=== PATIENT | male | born 1950 | race Caucasian/White ===

== ENCOUNTER 2016-09-22 23:12 | Inpatient (IN) | payer MEDICARE, BC ==
[~2016-09-22] VITALS: Ht 182.9 cm; Wt 88.1 kg
[~2016-09-22 23:12] MED LIST: /WARF25TA PO; ABIL5TAB5 PO; ACET50TA PO; AMOX500C PO; ARIP1TAB6 PO; EFFE150C PO; EFFE37.527 PO; EFFE75CA75 PO; FINA5TAB2 PO; FLOM5CAP PO; GEOD20CA14 PO; INVE117I IM; LORA1TAB12 PO; LYRI100C10 PO; LYRI75CA PO; NICO14DI3 TD; NICO21PAT TD; PERC2.5T PO; PERC7.5T12 PO; PREG1POW PO; PROS5TAB PO; PROZ20CA11 PO; RISP2TAB30 PO; SAPH1SUB9 SL; TRAZ50TA4 PO; VENL75CA47 PO
[2016-09-22] MEDS ORDERED: FLUP10TA PO (23:31)
[2016-09-22] MEDS ORDERED: HYDR1CAP25 PO (23:31)
[2016-09-22] MEDS ORDERED: TRAZ50TA4 PO (23:31)
[2016-09-22] MEDS ORDERED: BENZ2TA PO (23:31)
[2016-09-23 01:10] VITALS: BP 142/95
[2016-09-23] MEDS ORDERED: MAALOX 30 ML SUSP *UDC PO PRN (01:30)
[2016-09-23] MEDS ORDERED: ACETAMINOPHEN TAB 650MG DOSE (2X325MG) PO PRN (01:30)
[2016-09-23] MEDS ORDERED: MOM 30ML SUSPENSION UDC PO PRN (01:30)
[2016-09-23] MEDS: NICOTINE 14 MG/24 HR TRANSDERMAL TD SCH (09:11)
[2016-09-23] MEDS: BENZTROPINE 2 MG TAB PO SCH (09:11)
[2016-09-23] MEDS: VENLAFAXINE **XR** 75MG CAPSULE PO SCH (09:11)
[2016-09-23] MEDS: hydrOXYzine 25 MG TAB PO SCH ×2 (09:11→20:21)
[2016-09-23] MEDS: FLUoxetine 10 MG CAP PO SCH (09:11)
[2016-09-23] MEDS ORDERED: FLUP25VL IM (11:09)
--- NOTE | 2016-09-23 11:48 | HPEPDOC ---
Medical History and Physical Date of Admission September 23, 2016 at 00:20 History and Physical PCP: Dr. Li ATTENDING: Dr. Negro Carreno HPI: 66yoM admitted to [facility] for Schizoaffective disorder, being medically examined today. No acute medical complaints today. Denies any fevers, chills, weakness, fatigue, SMITH, CP, cough, palpitations, abdominal pain, N/V/D or changes in bowel or bladder habits. PMHx: Depression/psychosis Generalized anxiety disorder Insomnia Hx of nephrolithiasis BPH Chronic nerve pain decreased hearing left ear hx of Orthostatic hypotension PSHX: Left TKA Right rotator cuff repair Varicose veins BL lower extremities SOCHX: Resides in: [place], [place] Marital Status: Single, lives alone Kids: 0 Employment: Retired from [employer] Tobacco use: 1ppd x ~50yrs ETOH: Denies, quit age 31yo Illicit Drugs: Denies IV Drug Use: Denies Tattoos done unprofessionally: Denies FAMHX: Mother: age 70s secondary to heart problems Father: age 49 secondary to alcoholism Siblings: 1 sister alive, well. 1 sister secondary to unknown cause late 50s Unexpected deaths due to medical reasons: As above, otherwise unremarkable ROS: As noted in HPI, otherwise 11pt ROS of systems reviewed and remarkably unremarkable. PE: GEN: 66yoM, appears stated age. Well-nourished, well developed. No acute distress. Alert and oriented x 3. Pleasant, interactive. HEENT: Normocephalic, atraumatic. Pupils are equal, round, and reactive to light. Extraocular movements are intact. No nystagmus appreciated. Sclera are nonicteric. Conjunctiva without injection. Nose midline. No facial asymmetry. Moist mucous membranes. Partial dentures in place. Pharynx pink and moist, no cobblestoning. Neck supple, trachea midline. No lymphadenopathy or thyromegaly appreciated. CHEST: Regular rate and rhythm, +S1, +S2 LUNGS: Clear to auscultation bilaterally. No wheezes, rales, or rhonchi. Breathing appears symmetric and easy. Patient is speaking in full sentences. No accessory muscle use. ABD: Round, soft, non-tender, non-distended. +Bowel sounds throughout. No rebound or guarding. No costovertebral angle tenderness. EXT: Pulses 2+ bilaterally dorsalis pedis and radial. No lower extremity edema appreciated. SKIN: [place], dry, warm. Capillary refill <2sec. No rashes. NEURO: Alert and oriented x 3. Cranial nerves III-XII are intact. No focal deficits appreciated. Labs from [facility] WBC 6.9 Hgb15.4 Hct 45.8 Plt 237 BUN 28 SCr 0.70 Gluc 116 AST29 ALT 40 TSH 0.95 EKG [facility] NSR. A&P: 65yoM admitted to [facility] for Schizoaffective disorder 1. Psych. Plan per Psychiatry. EKG on file. 2. Nicotine dependence. Patch available. 3. Hx of nephrolithiasis/ Hx of BPH. Pt is not on any medications, Pt with no symptoms at this time. Stable. 4. Follow up with Dr. Li in [place]. 5. Hx of Orthostasis. Monitor orthostatic VS. 6. Junior VILLARREAL present throughout exam. Vital Signs Vital Signs Date Time Temp Pulse Resp B/P (MAP) Pulse Ox O2 Delivery O2 Flow Rate FiO2 09/23/16 01:10 98.7 78 20 142/95 (111) 94 Room Air Home Medications Scheduled Asenapine Maleate (Saphris) 2.5 Mg Sub, 5 MG SL QHS for PSYCHOSIS Benztropine Mesylate (Benztropine Mesylate) 2 Mg Tab, 2 MG PO DAILY Fluoxetine HCl (Prozac) 20 Mg Cap, 30 MG PO DAILY for DEPRESSION Fluphenazine Decanoate (Fluphenazine Decanoate) 25 Mg/Ml Soln, 1 ML IM Q2WK for psychosis Fluphenazine HCl (Fluphenazine HCl) 10 Mg Tab, 10 MG PO DAILY Hydroxyzine Pamoate (Hydroxyzine Pamoate) 25 Mg Cap, 25 MG PO BID Trazodone HCl (Trazodone HCl) 50 Mg Tab, 50 MG PO DAILY Venlafaxine Hydrochloride (Effexor Xr) 150 Mg Cap, 150 MG PO DAILY for DEPRESSION Allergies Coded Allergies: Ibuprofen (Verified Allergy, Mild, ITCHING, 09/22/16) Nora Fountain September 23, 2016 11:48
[2016-09-23 18:00] VITALS: BP 155/84
[2016-09-23 18:50] VITALS: BP 150/83
[2016-09-23 18:51] VITALS: BP_SYST 140; BP_SYST 146; BP_DIAS 89; BP_DIAS 93
[2016-09-23] MEDS: traZODone 50 MG TAB PO SCH ×2 (20:21)
[2016-09-23 20:22] VITALS: BP 145/91
[2016-09-23] MEDS ORDERED: ASENAPINE 5 MG SUBLINGUAL TAB (SAPHRIS) SL SCH (21:00)
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
[2016-09-24 07:01] VITALS: BP 140/89
[2016-09-24] MEDS: BENZTROPINE 2 MG TAB PO SCH (09:07)
[2016-09-24] MEDS: FLUoxetine 10 MG CAP PO SCH (09:07)
[2016-09-24] MEDS: VENLAFAXINE **XR** 75MG CAPSULE PO SCH (09:07)
[2016-09-24] MEDS: hydrOXYzine 25 MG TAB PO SCH ×2 (09:07→20:35)
[2016-09-24] MEDS: NICOTINE 14 MG/24 HR TRANSDERMAL TD SCH (09:08)
--- NOTE | 2016-09-24 10:54 | MHIPNPDOC ---
[facility] Progress Note Progress Note DATE OF SERVICE: 09/24/16 HISTORY: Patient is a 66-year-old male who was discharged from [facility] 3 months ago and was transferred from [facility] to [facility] complaining of increased auditory hallucinations over the course of the last several weeks, reported at intake that audiovisual hallucinations are self derogatory and were commanding him to kill himself. Patient noted he has been struggling with paranoia and auditory hallucinations, and severe depression since February 2015, had been living in [facility]. Patient has been trialed on multiple psychotropics, including several antipsychotics, has met with attending who indicates patient is a candidate for Clozaril trial with which patient is in agreement. Patient reports 6/10 anxiety , 7/10 depression, denies current suicidal or homicidal ideation, and denies urge to engage in self-injurious behavior. Patient reports experiencing auditory hallucination with command to kill himself "earlier today, they mostly just say I'm not going to make it, ramble on, and they confuse me." Patient denies experiencing symptoms since this morning and is able to agree to alert staff if symptoms return and worsen/become unmanageable. Patient reports experiencing poor sleep which she states improves when he takes trazodone, reports decreased concentration and focus, describes energy level as "okay," indicates appetite is stable. Patient has been encouraged to participate in unit programming, presents with no signs of acute distress at time of interaction. VITAL SIGNS: See below. NEW TEST RESULTS: CBC completed 09/24/16 with elevated mono % and eos %. 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 Left TKA, right rotator cuff repair, varicose veins BL lower extremities 01/25/[address] completed - negative noncontrast head CT 03/07/15 brain MRI with the following findings: Chronic small vessel white matter ischemic change with scattered punctuated and confluent periventricular, subcortical and deep centrum semiovale foci bilaterally on T2 and FLAIR images. No ventriculomegaly, mass, hemorrhage or acute infarct. Brainstem, cerebellum and posterior foci intact and the 7/8 cranial nerve complexes and mastoids are clear. The ethmoids and frontal sinuses with minor mucosal thickening. Otherwise negative. Labs completed by [facility] prior to transfer indicated elevated chloride, BUN, glucose and bacteria and urine. PA is aware of bacteria and urine and is treating. UDS negative on admission 10/29/15 EKG sinus rhythm possible right ventricular conduction delay increased rate 07/08/1509/2016 EKG from [facility] sinus rhythm CURRENT MEDICATIONS: See below. MENTAL STATUS EXAMINATION: Patient is a 66-year old male, who is cooperative and engageable but withdrawn and isolative to room, makes limited eye contact, is disheveled, dressed in hospital clothing, ambulates steady gait, appears stated age Speech: Is of normal volume, coherent, delayed, impoverished Language skills: Require further evaluation Thought processes including: Disorganized, not goal-directed Thought content: Perseverative, tangential. Abstract reasoning and computation: Limited Description of associations: Loose. Description of abnormal or psychotic thoughts: Denies current suicidal and homicidal ideation, however, indicates recently experienced auditory hallucinations with command to kill self, denies visual hallucinations. Patient appears internally preoccupied; appears to be responding to internal stimuli. Judgment: Poor Insight: Poor Orientation: A and O 3 Recent and remote memory: Appears intact Attention span and concentration: Requires further evaluation Language: Limited at present, requires further evaluation Fund of knowledge: Requires further evaluation Mood: "I'm ok right now" Affect: Blunted. DIAGNOSES: Unspecified psychotic disorder, rule out schizoaffective disorder, rule out schizophrenia, rule out major depressive disorder with psychotic features. Alcohol use disorder, severe, in sustained remission ASSESSMENT: Patient is 66-year-old male who was recently discharged from [facility], remains isolative to room, however, is engageable, cooperative, presents with no behavior management challenges. Patient denies suicidal and homicidal ideation and verbalizes awareness of how to access supportive services on the unit if needed, agrees to alert staff if symptoms of auditory hallucinations with command to kill self return. Patient indicates previous medication regimen was ineffective and is requesting Clozaril trial, attending and food writer have reviewed potential risks, benefits, side effects, and need for ongoing lab work with patient verbalizes understanding and agreement. Will monitor patient's response to medications and will monitor for medication side effects. Will also evaluate patient safety, resolution of suicidal ideation, and discharge readiness. Patient states when prepared for discharge she plans to return to [facility] and resume outpatient psychiatric services through [facility]. Per career coordinator, patient lives in [facility] apartment, has supportive sister, and is connected with [facility], and [facility]. MANAGEMENT PLAN: Initiate Clozaril 25 mg po q hs. Reduce Prolixin to 5 mg po q am then stop. Reduce Effexor XR to 75 mg po q am with plan to continue taper and discontinue. Discontinue Saphris. Change trazodone to 50 mg po hs PRN insomnia Continue Prozac 30 mg po q am, hydroxyzine 25 mg po BID, and Cogentin 2 mg po q am. Repeat CBC with differential ordered for 09/27/16 Fall risk precautions Orthostatics ordered QID Maintain safety precautions Patient to attend groups and participate in unit programming to develop coping strategies Engage patient in discharge planning process and arrange meeting with support system to ensure safe discharge planning when appropriate Patient to follow up with PCM within 5-7 days of discharge TIME SPENT: 35 minutes. Vital Signs Vital Signs Date Time Temp Pulse Resp B/P (MAP) Pulse Ox O2 Delivery O2 Flow Rate FiO2 09/24/16 07:01 99.0 62 18 140/89 (106) 09/23/16 01:10 94 Room Air Current Medications Current Medications Acetaminophen (Tylenol Tab) 650 mg Q6HP PRN PO HEADACHE or DISCOMFORT; Start at 01:30; Stop 10/23/16 at 01:29 Al Hydrox/Mg Hydrox/Simethicone (Mylanta) 30 ml Q4HP PRN PO HEARTBURN/ INDIGESTION; Start 09/23/16 at 01:30; Stop 10/23/16 at 01:29 Asenapine (Saphris) 5 mg QHS SL Last administered on 09/23/16 20:21; Start 09/23 at 21:00; Stop 10/23/16 at 20:59 Benztropine Mesylate (Cogentin) 2 mg DAILY PO Last administered on 09/24/16 09: 07; Start 09/23/16 at 09:00; Stop 10/23/16 at 08:59 Fluoxetine HCl (PROzac) 30 mg DAILY PO Last administered on 09/24/16 09:07; Start 09/23/16 at 09:00; Stop 10/23/16 at 08:59 Fluphenazine HCl (Prolixin) 10 mg QAM PO Last administered on 09/24/16 09:08; Start 09/23/16 at 09:00; Stop 10/23/16 at 08:59 Home Med (Med Rec Complete!) ASDIRECTED XX ; Start 09/23/16 at 01:45; Stop at 01:48; Status DC Hydroxyzine HCl (Atarax) 25 mg BID PO Last administered on 09/24/16 09:07; Start 09/23/16 at 09:00; Stop 10/23/16 at 08:59 Magnesium Hydroxide (Milk Of Magnesia) 30 ml DAILYPRN PRN PO CONSTIPATION; Start 09/23/16 at 01:30; Stop 10/23/16 at 01:29 Nicotine (Nicoderm Cq 14mg) 1 patch DAILY TD Last administered on 09/24/16 09: 08; Start 09/23/16 at 09:00; Stop 10/23/16 at 08:59 Trazodone HCl (Desyrel) 50 mg QHS PO Last administered on 09/23/16 20:21; Start 09/23/16 at 00:00; Stop 10/23/16 at 00:00 Venlafaxine HCl (Effexor Xr) 150 mg DAILY PO Last administered on 09/24/16 09:07; Start 09/23/16 at 09:00; Stop 10/23/16 at 08:59 Allergies Coded Allergies: Ibuprofen (Verified Allergy, Mild, ITCHING, 09/22/16) Amira Hernandez September 24, 2016 10:54
[2016-09-24 11:50] VITALS: BP_SYST 125; BP_SYST 133; BP_SYST 135; BP_DIAS 84; BP_DIAS 87
--- NOTE | 2016-09-24 13:42 | IPNPDOC ---
Subjective Date Seen The patient was seen on 09/24/16. Subjective Chief Complaint/HPI The patient is a 66-year-old male admitted with a reason for visit of Schizoaffective D/O. Events since last encounter Requested to evaluate Pt in regards to UC result from [facility]. No new issues. ENT: Denies: Head Aches, Ear Pain, Dysphagia Pulmonary: Denies: Dyspnea, Cough Cardiovascular: Denies: Chest Pain, Palpitations, Orthopnea, Paroxysmal Noc. Dyspnea, Lt Headedness Gastrointestinal: Denies: Nausea, Vomiting, Abdominal Pain, Diarrhea, Constipation Objective Physical Examination General Exam: Positive: Alert Eye Exam: Positive: PERRLA Chest Exam: Positive: Clear to auscultation Heart Exam: Positive: Rate Normal, Regular Rhythm, Normal S1, Normal S2, Negative: Murmurs, Rubs Skin Exam: Positive: Nl turgor and temperature Assessment /Plan Problems (1) UTI (urinary tract infection) Status: Acute Problem Text: * UC result from [facility] noted to E faecalis >100,000. * Sensitivities reviewed. Will add Nitrofurantoin 100mg po BID. Scr noted to be WNL as per labs from [facility]. * Will recheck UA/UC. * CBC/BMP in AM. * Monitor. (2) Orthostatic hypotension Status: Chronic Problem Text: * Pt with h/o orthostatic hypotension. * Orthostatic VS requested. * Caution with addition of new medications. Plan/VTE VTE Prophylaxis Ordered?: No (ambulatory) VS, I&O, 24H, Fishbone Vital Signs/I&O Vital Signs Date Time Temp Pulse Resp B/P (MAP) Pulse Ox O2 Delivery O2 Flow Rate FiO2 09/24/16 11:50 85 16 125/84 (98) 09/24/16 11:50 98.2 09/23/16 01:10 94 Room Air Nora Fountain September 24, 2016 13:42
[2016-09-24] MEDS: NITROFURANTOIN (MACROBID) 100 MG CAP PO SCH ×2 (14:17→20:35)
[2016-09-24 17:41] LABS: BASO # 0.1 K/mm3 (0.0-0.2); BASO % 0.9 % (0.0-1.0); EOS # 0.5 K/mm3 (0.0-0.50); EOS % 7.3 % (0.0-3.0); LARGE UNSTAINED CELL # 0.3 K/mm3 (0.0-0.4); LARGE UNSTAINED CELL % 3.7 % (0.0-4.0); LYMPH # 2.6 K/mm3 (1.5-4.5); LYMPH % 38.7 % (24.0-44.0); MEAN CORPUSCULAR HEMOGLOBIN 31.7 pg (27.0-33.0); MEAN CORPUSCULAR HGB CONC 33.3 g/dl (32.0-36.5); MEAN CORPUSCULAR VOLUME 95.3 fl (80.0-96.0); MONO # 0.6 K/mm3 (0.0-0.8); MONO % 8.6 % (0.0-5.0); NEUTROPHILS # 2.7 K/mm3 (1.8-7.7); NEUTROPHILS % 40.8 % (36.0-66.0); PLATELET COUNT, AUTOMATED 247 k/mm3 (150-450); RED CELL DISTRIBUTION WIDTH 12.6 % (11.5-14.5); WHITE BLOOD COUNT 6.7 K/mm3 (4.0-10.0)
[2016-09-24 18:21] VITALS: BP 142/86
[2016-09-24 18:22] VITALS: BP_SYST 114; BP_SYST 139; BP_DIAS 71; BP_DIAS 80
[2016-09-24] MEDS: traZODone 50 MG TAB PO PRN (20:35)
[2016-09-24] MEDS: cloZAPine 25 MG TAB (S0136) PO SCH (20:35)
[2016-09-25 06:27] VITALS: BP 147/81
[2016-09-25 06:28] VITALS: BP_SYST 113; BP_SYST 126; BP_DIAS 77
[2016-09-25 06:45] VITALS: BP 126/77
[2016-09-25 06:47] VITALS: BP 147/81
[2016-09-25 06:48] LABS: BASO % 0.5 % (0.0-1.0); EOS # 0.4 K/mm3 (0.0-0.50); EOS % 7.1 % (0.0-3.0); LARGE UNSTAINED CELL # 0.2 K/mm3 (0.0-0.4); LARGE UNSTAINED CELL % 3.1 % (0.0-4.0); LYMPH % 30.1 % (24.0-44.0); MEAN CORPUSCULAR HEMOGLOBIN 32.1 pg (27.0-33.0); MEAN CORPUSCULAR HGB CONC 34.4 g/dl (32.0-36.5); MEAN CORPUSCULAR VOLUME 93.4 fl (80.0-96.0); MONO # 0.5 K/mm3 (0.0-0.8); MONO % 7.3 % (0.0-5.0); NEUTROPHILS # 3.2 K/mm3 (1.8-7.7); PLATELET COUNT, AUTOMATED 221 k/mm3 (150-450); RED CELL DISTRIBUTION WIDTH 12.8 % (11.5-14.5); WHITE BLOOD COUNT 6.1 K/mm3 (4.0-10.0)
[2016-09-25 07:02] LABS: ALBUMIN 3.6 GM/DL (3.2-5.2); ALBUMIN/GLOBULIN RATIO 1.16 (1.00-1.93); ALKALINE PHOSPHATASE 105 U/L (45-117); ALT/SGPT 43 U/L (12-78); ANION GAP 7 MEQ/L (8-16); AST/SGOT 20 U/L (15-37); BILIRUBIN,TOTAL 1.4 MG/DL (0.2-1.0); BLOOD UREA NITROGEN 18 MG/DL (7-18); CALCIUM LEVEL 8.6 MG/DL (8.8-10.2); CARBON DIOXIDE LEVEL 25 MEQ/L (21-32); CHLORIDE LEVEL 109 MEQ/L (98-107); CREATININE FOR GFR 0.73 MG/DL (0.70-1.30); GLOMERULAR FILTRATION RATE > 60.0 (>49); GLUCOSE, FASTING 94 MG/DL (80-110); POTASSIUM SERUM 4.1 MEQ/L (3.5-5.1); SODIUM LEVEL 141 MEQ/L (136-145); TOTAL PROTEIN 6.7 GM/DL (6.4-8.2)
[2016-09-25] MEDS: hydrOXYzine 25 MG TAB PO SCH ×2 (08:31→20:38)
[2016-09-25] MEDS: BENZTROPINE 2 MG TAB PO SCH (08:31)
[2016-09-25] MEDS: FLUoxetine 10 MG CAP PO SCH (08:31)
[2016-09-25] MEDS: NICOTINE 14 MG/24 HR TRANSDERMAL TD SCH (08:31)
[2016-09-25] MEDS: NITROFURANTOIN (MACROBID) 100 MG CAP PO SCH ×2 (08:32→20:38)
[2016-09-25] MEDS ORDERED: VENLAFAXINE **XR** 75MG CAPSULE PO SCH (09:00)
[2016-09-25 12:00] VITALS: BP_SYST 107; BP_SYST 134; BP_SYST 146; BP_DIAS 67; BP_DIAS 69; BP_DIAS 85
--- NOTE | 2016-09-25 15:09 | MHIPNPDOC ---
[facility] Progress Note Progress Note DATE OF SERVICE: 09/25/16 HISTORY: Patient is a 66-year-old male who was [place] [facility] [place] and was transferred from [facility] to [facility] complaining of increased auditory hallucinations over the course of the last several weeks, reported at intake that audiovisual hallucinations are self derogatory and were commanding him to kill himself. Patient noted he has been struggling with paranoia and auditory hallucinations, and severe depression since February 2015, had been living in [facility] housing. Patient took initial dose of Clozaril last night, reports experiencing mild intermittent symptoms of fatigue, states symptoms are manageable, denies all other medication side effects. Patient notes, "I feel better, the voices are less." Patient indicates he last experienced auditory hallucinations this morning, AH involved command to harm self with no method/plan/intent experienced , indicates AH "mimic" patient at times. Patient states symptoms are more manageable and are of reduced frequency and intensity, and patient continues to agree to alert staff if symptoms return and worsen/become unmanageable. Patient further describes reduction in symptoms paranoia, rates current anxiety level is 4/10, depression/10, denies current suicidal or homicidal ideation, denies current audiovisual hallucinations, denies urge to engage in self-injurious behavior. Patient reports notable improvement to sleep last night, denies nightmares symptoms, further denies challenges with latency or maintenance. Patient continues to struggle with concentration and focus, reports no changes to energy level, states appetite remains stable. Patient was again encouraged to participate in unit activities. Patient denies symptoms of physical pain and presents with no signs of acute distress at time of interaction. cut in worker has requested medication treatment history from [facility]. VITAL SIGNS: See below. NEW TEST RESULTS: CBC repeated 09/25/16, mono % and eos % remain elevated. 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 Left TKA, right rotator cuff repair, varicose veins BL lower extremities 01/25/[address] completed - negative noncontrast head CT 03/07/15 brain MRI with the following findings: Chronic small vessel white matter ischemic change with scattered punctuated and confluent periventricular, subcortical and deep centrum semiovale foci bilaterally on T2 and FLAIR images. No ventriculomegaly, mass, hemorrhage or acute infarct. Brainstem, cerebellum and posterior foci intact and the 7/8 cranial nerve complexes and mastoids are clear. The ethmoids and frontal sinuses with minor mucosal thickening. Otherwise negative. Labs completed by [facility] prior to transfer indicated elevated chloride, BUN, glucose and bacteria and urine. PA is aware of bacteria in urine and is treating. UDS negative on admission 10/29/15 EKG sinus rhythm possible right ventricular conduction delay increased rate 07/08/1509/2016 EKG from [facility] sinus rhythm CURRENT MEDICATIONS: See below. MENTAL STATUS EXAMINATION: Patient is a 66-year old male, who is cooperative and more engageable today, remains withdrawn and isolative to room, makes improved eye contact, appears less disheveled, dressed in hospital clothing, ambulates steady gait, appears stated age Speech: Is of normal volume, coherent, delayed, less impoverished, more verbally engageable today Language skills: Within normal limits Thought processes including: Less disorganized, more goal-directed Thought content: Less perseverative, less tangential, generally rational and logical Abstract reasoning and computation: Limited Description of associations: Remain loose but less so today Description of abnormal or psychotic thoughts: Denies current suicidal and homicidal ideation, however, indicates recently experienced auditory hallucinations with command to harm self, denies visual hallucinations. Patient does not appear internally preoccupied at time of interaction. Judgment: Poor Insight: Poor Orientation: A and O 3 Recent and remote memory: Appears intact Attention span and concentration: Limited but shows signs of improvement Language: Limited but shows signs of improvement Fund of knowledge: Requires further evaluation Mood: "I'm a little better today and think " patient remains depressed, appears less anxious today, no mood lability noted Affect: Remains blunted but is more animated today, generally congruent with mood DIAGNOSES: Unspecified psychotic disorder, rule out schizoaffective disorder, rule out schizophrenia, rule out major depressive disorder with psychotic features. Alcohol use disorder, severe, in sustained remission ASSESSMENT: Patient is 66-year-old male who was recently discharged from [facility] remains isolative to room, however, is more engageable today, is pleasant and cooperative, presents with no behavior management challenges. Patient denies suicidal and homicidal ideation and verbalizes awareness of how to access supportive services on the unit if needed, agrees to alert staff if symptoms of command auditory hallucinations return/become unmanageable. Patient reiterates today previous medication regimen was ineffective, reports reduction in symptoms post-initiation of Clozaril trial. Patient has been informed by attending and ghost writer of potential risks, benefits, side effects, and need for ongoing lab work; patient continues to verbalize understanding and agreement. Will continue to monitor for side effects and patient's response to medications and nursing has also been asked to monitor for clozaril medication side effects. Will also continue to evaluate patient safety, resolution of suicidal ideation, and discharge readiness. Patient states when prepared for discharge he plans to return to [facility] in [place] and resume outpatient psychiatric services through [facility]. Per behavioral health care coordinator, patient may return to [facility] apartment, has supportive sister, and is connected with [facility], and [facility]. MANAGEMENT PLAN: Continue Clozaril 25 mg po q hs with plans to titrate as tolerated by patient. Discontinue Prolixin. Reduce Effexor XR to 37.5 mg po q am then discontinue. Continue trazodone 50 mg po hs PRN insomnia, continue Prozac 30 mg po q am, hydroxyzine 25 mg po BID, and Cogentin 2 mg po q am. Repeat CBC with differential ordered for 09/27/16 Fall risk precautions Orthostatics ordered QID Maintain safety precautions Patient to attend groups and participate in unit programming to develop coping strategies Engage patient in discharge planning process and arrange meeting with support system to ensure safe discharge planning when appropriate Patient to follow up with PCM within 5-7 days of discharge TIME SPENT: 35 minutes Vital Signs Vital Signs Date Time Temp Pulse Resp B/P (MAP) Pulse Ox O2 Delivery O2 Flow Rate FiO2 09/25/16 12:00 98 107/67 (80) 09/25/16 06:47 97.1 18 09/25/16 06:27 Room Air 09/23/16 01:10 94 Laboratory Data 24H Labs Laboratory Tests 2 09/24/16 17:22: White Blood Count 6.7, Red Blood Count 4.77, Hemoglobin 15.1, Hematocrit 45.5, Mean Corpuscular Volume 95.3, Mean Corpuscular Hemoglobin 31.7, Mean Corpuscular Hemoglobin Concent 33.3, Red Cell Distribution Width 12.6, Platelet Count 247, Neutrophils (%) (Auto) 40.8, Lymphocytes (%) (Auto) 38.7, Monocytes ( %) (Auto) 8.6H, Eosinophils (%) (Auto) 7.3H, Basophils (%) (Auto) 0.9, Neutrophils # (Auto) 2.7, Lymphocytes # (Auto) 2.6, Monocytes # (Auto) 0.6, Eosinophils # (Auto) 0.5, Basophils # (Auto) 0.1, Large Unclassified Cells % 3.7 , Large Unclassified Cells # 0.3 09/25/16 06:28: White Blood Count 6.1, Red Blood Count 4.54, Hemoglobin 14.6, Hematocrit 42.4, Mean Corpuscular Volume 93.4, Mean Corpuscular Hemoglobin 32.1, Mean Corpuscular Hemoglobin Concent 34.4, Red Cell Distribution Width 12.8, Platelet Count 221, Neutrophils (%) (Auto) 52.0, Lymphocytes (%) (Auto) 30.1, Monocytes ( %) (Auto) 7.3H, Eosinophils (%) (Auto) 7.1H, Basophils (%) (Auto) 0.5, Neutrophils # (Auto) 3.2, Lymphocytes # (Auto) 2.0, Monocytes # (Auto) 0.5, Eosinophils # (Auto) 0.4, Basophils # (Auto) 0.0, Large Unclassified Cells % 3.1 , Large Unclassified Cells # 0.2, Anion Gap 7L, Glomerular Filtration Rate > 60.0, Blood Urea Nitrogen 18, Creatinine 0.73, Sodium Level 141, Potassium Level 4.1, Chloride Level 109H, Carbon Dioxide Level 25, Calcium Level 8.6L, Aspartate Amino Transf (AST/SGOT) 20, Alanine Aminotransferase (ALT/SGPT) 43, Alkaline Phosphatase 105, Total Bilirubin 1.4H, Total Protein 6.7, Albumin 3.6, Albumin/Globulin Ratio 1.16 CBC/BMP Laboratory Tests 09/24/16 17:22 Red Blood Count 4.77, Mean Corpuscular Volume 95.3, Mean Corpuscular Hemoglobin 31.7, Mean Corpuscular Hemoglobin Concent 33.3, Red Cell Distribution Width 12.6 , Neutrophils (%) (Auto) 40.8, Lymphocytes (%) (Auto) 38.7, Monocytes (%) (Auto ) 8.6 H, Eosinophils (%) (Auto) 7.3 H, Basophils (%) (Auto) 0.9, Neutrophils # ( Auto) 2.7, Lymphocytes # (Auto) 2.6, Monocytes # (Auto) 0.6, Eosinophils # (Auto ) 0.5, Basophils # (Auto) 0.1 09/25/16 06:28 Red Blood Count 4.54, Mean Corpuscular Volume 93.4, Mean Corpuscular Hemoglobin 32.1, Mean Corpuscular Hemoglobin Concent 34.4, Red Cell Distribution Width 12.8 , Neutrophils (%) (Auto) 52.0, Lymphocytes (%) (Auto) 30.1, Monocytes (%) (Auto ) 7.3 H, Eosinophils (%) (Auto) 7.1 H, Basophils (%) (Auto) 0.5, Neutrophils # ( Auto) 3.2, Lymphocytes # (Auto) 2.0, Monocytes # (Auto) 0.5, Eosinophils # (Auto ) 0.4, Basophils # (Auto) 0.0, Calcium Level 8.6 L, Aspartate Amino Transf (AST/ SGOT) 20, Alanine Aminotransferase (ALT/SGPT) 43, Alkaline Phosphatase 105, Total Bilirubin 1.4 H, Total Protein 6.7, Albumin 3.6 Current Medications Current Medications Acetaminophen (Tylenol Tab) 650 mg Q6HP PRN PO HEADACHE or DISCOMFORT; Start at 01:30; Stop 10/23/16 at 01:29 Al Hydrox/Mg Hydrox/Simethicone (Mylanta) 30 ml Q4HP PRN PO HEARTBURN/ INDIGESTION; Start 09/23/16 at 01:30; Stop 10/23/16 at 01:29 Asenapine (Saphris) 5 mg QHS SL Last administered on 09/23/16 20:21; Start 09/23 at 21:00; Stop 09/24/16 at 18:39; Status DC Benztropine Mesylate (Cogentin) 2 mg DAILY PO Last administered on 09/25/16 08 :31; Start 09/23/16 at 09:00; Stop 10/23/16 at 08:59 Clozapine (Clozaril) 25 mg QHS PO Last administered on 09/24/16 20:35; Start at 21:00; Stop 10/01/16 at 20:59 Fluoxetine HCl (PROzac) 30 mg DAILY PO Last administered on 09/25/16 08:31; Start 09/23/16 at 09:00; Stop 10/23/16 at 08:59 Fluphenazine HCl (Prolixin) 5 mg QAM PO Last administered on 09/25/16 09:42; Start 09/25/16 at 09:00; Stop 09/25/16 at 12:00; Status DC Fluphenazine HCl (Prolixin) 10 mg QAM PO Last administered on 09/24/16 09:08; Start 09/23/16 at 09:00; Stop 09/24/16 at 18:39; Status DC Home Med (Med Rec Complete!) ASDIRECTED XX ; Start 09/23/16 at 01:45; Stop at 01:48; Status DC Hydroxyzine HCl (Atarax) 25 mg BID PO Last administered on 09/25/16 08:31; Start 09/23/16 at 09:00; Stop 10/23/16 at 08:59 Magnesium Hydroxide (Milk Of Magnesia) 30 ml DAILYPRN PRN PO CONSTIPATION; Start 09/23/16 at 01:30; Stop 10/23/16 at 01:29 Nicotine (Nicoderm Cq 14mg) 1 patch DAILY TD Last administered on 09/25/16 08: 31; Start 09/23/16 at 09:00; Stop 10/23/16 at 08:59 Nitrofurantoin Monoh/Nitrofur Macro (Macrobid) 100 mg BID PO Last administered on 09/25/16 08:32; Start 09/24/16 at 09:00; Stop 10/01/16 at 08:59 Trazodone HCl (Desyrel) 50 mg QHS PO Last administered on 09/23/16 20:21; Start 09/23/16 at 00:00; Stop 09/24/16 at 18:39; Status DC Trazodone HCl (Desyrel) 50 mg QHS PRN PO INSOMNIA Last administered on 20:35; Start 09/24/16 at 18:45; Stop 10/24/16 at 18:44 Venlafaxine HCl (Effexor Xr) 37.5 mg DAILY PO ; Start 09/26/16 at 09:00; Stop 09/26/16 at 12:00 Venlafaxine HCl (Effexor Xr) 75 mg DAILY PO Last administered on 09/25/16 08:31; Start 09/25/16 at 09:00; Stop 09/25/16 at 14:31; Status DC Venlafaxine HCl (Effexor Xr) 150 mg DAILY PO Last administered on 09/24/16 09:07; Start 09/23/16 at 09:00; Stop 09/24/16 at 18:39; Status DC Allergies Coded Allergies: Ibuprofen (Verified Allergy, Mild, ITCHING, 09/22/16) Amira Hernandez September 25, 2016 15:09
[2016-09-25 18:00] VITALS: BP_SYST 129; BP_SYST 139; BP_SYST 152; BP_SYST 95; BP_DIAS 66; BP_DIAS 69; BP_DIAS 79; BP_DIAS 81
[2016-09-25] MEDS: cloZAPine 25 MG TAB (S0136) PO SCH (20:38)
[2016-09-26 06:27] VITALS: BP_SYST 124; BP_SYST 126; BP_SYST 128; BP_SYST 132; BP_SYST 161; BP_DIAS 59; BP_DIAS 74; BP_DIAS 81; BP_DIAS 92
--- NOTE | 2016-09-26 08:44 | MHIPNPDOC ---
[facility] Progress Note Progress Note DATE OF SERVICE: 09/26/16 HISTORY: Patient is a 66-year-old male who was discharged from [facility] 3 months ago and was transferred from [facility] to [facility] complaining of increased auditory hallucinations over the course of the last several weeks, reported at intake that audiovisual hallucinations are self derogatory and were commanding him to kill himself. Patient noted he has been struggling with paranoia and auditory hallucinations, and severe depression since February 2015, had been living in [facility] housing. Patient is observed to be lying in bed again today, took second dose of Clozaril last night, reports reduced symptoms of mild intermittent fatigue, states symptoms are manageable, denies all other medication side effects. Patient states he has experienced no auditory hallucinations this morning, notes last experience last night, reports anxiety 5/10, depression 5/10, denies visual hallucinations, denies suicidal and homicidal ideation, denies urge to engage in self-injurious behavior. Patient continues to agree to alert staff if symptoms return and/or are unmanageable. Patient further describes reduction in symptoms paranoia, denies irritability, agitation, impulsivity and states he feels his mood is level. Patient reports improvement to concentration and focus describing them as "fine," adds energy level remains low, indicates his appetite is stable. Patient describes sleep as "good," denies nightmares symptoms, further denies challenges with latency or maintenance. Patient informs chief writer he intends to participate in unit activities today, denies symptoms of physical pain, and presents with no signs of acute distress at time of interaction. Addendum: When chief writer informed later in day that patient complained of "shakiness" to legs. Splitter Hand met with patient again who indicated he experienced symptom briefly X 2 late this morning. Patient unable to describe symptom, lying in bed, stated when he lifts legs and bends knees has what appears to be brief, mild shakiness to left leg due to weakness, symptoms subsided immediately. Patient was encouraged to be up out of bed and ensure that he is ambulating, and consuming food and fluids. Patient agreed to monitor for recurrence of symptoms and to alert nursing if they recur/worsen and nursing was asked to continue to monitor for symptoms of side effects related to medications. knockup worker has requested medication treatment history from [facility]. VITAL SIGNS: See below. Elevated blood fluctuate, request is been made for medical to evaluate NEW TEST RESULTS: CBC repeated 09/25/16, mono % and eos % remain elevated. 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 Left TKA, right rotator cuff repair, varicose veins BL lower extremities 01/25/[address] completed - negative noncontrast head CT 03/07/15 brain MRI with the following findings: Chronic small vessel white matter ischemic change with scattered punctuated and confluent periventricular, subcortical and deep centrum semiovale foci bilaterally on T2 and FLAIR images. No ventriculomegaly, mass, hemorrhage or acute infarct. Brainstem, cerebellum and posterior foci intact and the 7/8 cranial nerve complexes and mastoids are clear. The ethmoids and frontal sinuses with minor mucosal thickening. Otherwise negative. Labs completed by [facility] prior to transfer indicated elevated chloride, BUN, glucose and bacteria and urine. PA is aware of bacteria in urine and is treating. UDS negative on admission 10/29/15 EKG sinus rhythm possible right ventricular conduction delay increased rate 07/08/1509/2016 EKG from [facility] sinus rhythm CURRENT MEDICATIONS: See below. MENTAL STATUS EXAMINATION: Patient is a 66-year old male, who is cooperative and more engageable today, remains withdrawn and isolative to room, makes improved eye contact, appears less disheveled, dressed in hospital clothing, ambulates steady gait, appears stated age Speech: Is of normal volume, coherent, delayed, less impoverished, more verbally engageable today Language skills: Within normal limits Thought processes including: Less disorganized, more goal-directed Thought content: Less perseverative, less tangential, generally rational and logical Abstract reasoning and computation: Limited Description of associations: Remain loose but less so today Description of abnormal or psychotic thoughts: Denies current suicidal and homicidal ideation, however, indicates recently experienced auditory hallucinations with command to harm self, denies visual hallucinations. Patient does not appear internally preoccupied at time of interaction. Judgment: Limited Insight: Limited Orientation: A and O 3 Recent and remote memory: Appears intact Attention span and concentration: Limited but shows signs of improvement Language: Limited but shows signs of improvement Fund of knowledge: Appears within normal limits Mood: "I'm feeling better today than yesterday I think." Patient remains depressed, appears less anxious today, no mood lability noted Affect: Remains blunted but is more animated today, generally congruent with mood DIAGNOSES: Unspecified psychotic disorder, rule out schizoaffective disorder, rule out schizophrenia, rule out major depressive disorder with psychotic features. Alcohol use disorder, severe, in sustained remission ASSESSMENT: Patient is 66-year-old male who was recently discharged from [facility], remains isolative to room and lying in bed, however, is more engageable today, is pleasant and cooperative, presents with no behavior management challenges. Patient denies suicidal and homicidal ideation and verbalizes awareness of how to access supportive services on the unit if needed, agrees to alert staff if symptoms of command auditory hallucinations return/become unmanageable. Patient reiterates today previous medication regimen was ineffective, reports reduction in symptoms post-initiation of Clozaril trial. Patient has been informed by attending and chief writer of potential risks, benefits, side effects, and need for ongoing lab work; patient continues to verbalize understanding and agreement. Post clinical consult will reduce Cogentin in effort to reduce likelihood of orthostatic symptoms. Will continue to monitor for side effects and patient's response to medications and nursing has also been asked to monitor for clozaril medication side effects. Will also continue to evaluate patient safety, resolution of command suicidal ideation and tax auditor hallucinations, and discharge readiness. Patient states when prepared for discharge he plans to return to [facility] housing in [place] and resume outpatient psychiatric services through [facility]. Per pool coordinator, patient may return to [facility] apartment, has supportive sister, and is connected with [facility], and [facility]. MANAGEMENT PLAN: Continue Clozaril 25 mg po q hs with plans to titrate as tolerated by patient. Discontinue Effexor XR. Reduce Cogentin to 1 mg po q am. Continue trazodone 50 mg po hs PRN insomnia, continue Prozac 30 mg po q am, and hydroxyzine 25 mg po BID. Repeat CBC with differential ordered for 09/27/16 Fall risk precautions Orthostatics ordered QID Maintain safety precautions Patient to attend groups and participate in unit programming to develop coping strategies Engage patient in discharge planning process and arrange meeting with support system to ensure safe discharge planning when appropriate Patient to follow up with PCM within 5-7 days of discharge TIME SPENT: 35 minutes Vital Signs Vital Signs Date Time Temp Pulse Resp B/P (MAP) Pulse Ox O2 Delivery O2 Flow Rate FiO2 09/26/16 06:27 67 161/92 (115) 86 132/81 (98) 120 126/74 (91) 09/26/16 06:26 97.7 20 09/25/16 18:00 Room Air 09/23/16 01:10 94 Current Medications Current Medications Acetaminophen (Tylenol Tab) 650 mg Q6HP PRN PO HEADACHE or DISCOMFORT; Start at 01:30; Stop 10/23/16 at 01:29 Al Hydrox/Mg Hydrox/Simethicone (Mylanta) 30 ml Q4HP PRN PO HEARTBURN/ INDIGESTION; Start 09/23/16 at 01:30; Stop 10/23/16 at 01:29 Asenapine (Saphris) 5 mg QHS SL Last administered on 09/23/16 20:21; Start 09/23 at 21:00; Stop 09/24/16 at 18:39; Status DC Benztropine Mesylate (Cogentin) 2 mg DAILY PO Last administered on 09/25/16 08 :31; Start 09/23/16 at 09:00; Stop 10/23/16 at 08:59 Clozapine (Clozaril) 25 mg QHS PO Last administered on 09/25/16 20:38; Start 09/24/16 at 21:00; Stop 10/01/16 at 20:59 Fluoxetine HCl (PROzac) 30 mg DAILY PO Last administered on 09/25/16 08:31; Start 09/23/16 at 09:00; Stop 10/23/16 at 08:59 Fluphenazine HCl (Prolixin) 5 mg QAM PO Last administered on 09/25/16 09:42; Start 09/25/16 at 09:00; Stop 09/25/16 at 12:00; Status DC Fluphenazine HCl (Prolixin) 10 mg QAM PO Last administered on 09/24/16 09:08; Start 09/23/16 at 09:00; Stop 09/24/16 at 18:39; Status DC Home Med (Med Rec Complete!) ASDIRECTED XX ; Start 09/23/16 at 01:45; Stop at 01:48; Status DC Hydroxyzine HCl (Atarax) 25 mg BID PO Last administered on 09/25/16 20:38; Start 09/23/16 at 09:00; Stop 10/23/16 at 08:59 Magnesium Hydroxide (Milk Of Magnesia) 30 ml DAILYPRN PRN PO CONSTIPATION; Start 09/23/16 at 01:30; Stop 10/23/16 at 01:29 Nicotine (Nicoderm Cq 14mg) 1 patch DAILY TD Last administered on 09/25/16 08: 31; Start 09/23/16 at 09:00; Stop 10/23/16 at 08:59 Nitrofurantoin Monoh/Nitrofur Macro (Macrobid) 100 mg BID PO Last administered on 09/25/16 20:38; Start 09/24/16 at 09:00; Stop 10/01/16 at 08:59 Trazodone HCl (Desyrel) 50 mg QHS PO Last administered on 09/23/16 20:21; Start 09/23/16 at 00:00; Stop 09/24/16 at 18:39; Status DC Trazodone HCl (Desyrel) 50 mg QHS PRN PO INSOMNIA Last administered on 20:35; Start 09/24/16 at 18:45; Stop 10/24/16 at 18:44 Venlafaxine HCl (Effexor Xr) 37.5 mg DAILY PO ; Start 09/26/16 at 09:00; Stop 09/26/16 at 12:00 Venlafaxine HCl (Effexor Xr) 75 mg DAILY PO Last administered on 09/25/16 08:31; Start 09/25/16 at 09:00; Stop 09/25/16 at 14:31; Status DC Venlafaxine HCl (Effexor Xr) 150 mg DAILY PO Last administered on 09/24/16 09:07; Start 09/23/16 at 09:00; Stop 09/24/16 at 18:39; Status DC Allergies Coded Allergies: Ibuprofen (Verified Allergy, Mild, ITCHING, 09/22/16) Amira Hernandez September 26, 2016 08:44
[2016-09-26] MEDS ORDERED: VENLAFAXINE **XR** 37.5 MG CAPSULE PO SCH (09:00)
[2016-09-26] MEDS: FLUoxetine 10 MG CAP PO SCH (09:27)
[2016-09-26] MEDS: BENZTROPINE 2 MG TAB PO SCH (09:27)
[2016-09-26] MEDS: NICOTINE 14 MG/24 HR TRANSDERMAL TD SCH (09:27)
[2016-09-26] MEDS: hydrOXYzine 25 MG TAB PO SCH ×2 (09:27→21:56)
[2016-09-26] MEDS: NITROFURANTOIN (MACROBID) 100 MG CAP PO SCH ×2 (09:27→21:56)
[2016-09-26 12:33] VITALS: BP_SYST 115; BP_SYST 120; BP_SYST 150; BP_DIAS 76; BP_DIAS 81; BP_DIAS 88
[2016-09-26 18:00] VITALS: BP_SYST 114; BP_SYST 125; BP_SYST 148; BP_DIAS 72; BP_DIAS 74; BP_DIAS 82
[2016-09-26] MEDS: cloZAPine 25 MG TAB (S0136) PO SCH (21:56)
[2016-09-26] MEDS: traZODone 50 MG TAB PO PRN (21:58)
[2016-09-27 06:10] VITALS: BP_SYST 103; BP_SYST 109; BP_SYST 147; BP_DIAS 67; BP_DIAS 74; BP_DIAS 81
[2016-09-27 07:25] LABS: BASO # 0.1 K/mm3 (0.0-0.2); EOS # 0.5 K/mm3 (0.0-0.50); EOS % 6.8 % (0.0-3.0); LARGE UNSTAINED CELL # 0.2 K/mm3 (0.0-0.4); LYMPH % 22.8 % (24.0-44.0); MEAN CORPUSCULAR HEMOGLOBIN 32.3 pg (27.0-33.0); MEAN CORPUSCULAR HGB CONC 34.6 g/dl (32.0-36.5); MEAN CORPUSCULAR VOLUME 93.2 fl (80.0-96.0); MONO # 0.7 K/mm3 (0.0-0.8); MONO % 8.4 % (0.0-5.0); NEUTROPHILS # 4.7 K/mm3 (1.8-7.7); PLATELET COUNT, AUTOMATED 201 k/mm3 (150-450); RED CELL DISTRIBUTION WIDTH 12.8 % (11.5-14.5)
[2016-09-27] MEDS: hydrOXYzine 25 MG TAB PO SCH ×2 (08:31→22:58)
[2016-09-27] MEDS: BENZTROPINE 1 MG TAB PO SCH (08:31)
[2016-09-27] MEDS: NITROFURANTOIN (MACROBID) 100 MG CAP PO SCH ×2 (08:31→22:58)
[2016-09-27] MEDS: NICOTINE 14 MG/24 HR TRANSDERMAL TD SCH (08:31)
[2016-09-27] MEDS: FLUoxetine 10 MG CAP PO SCH (08:31)
--- NOTE | 2016-09-27 10:01 | IPNPDOC ---
Subjective Date Seen The patient was seen on 09/27/16. Subjective Chief Complaint/HPI The patient is a 66-year-old male admitted with a reason for visit of Schizoaffective D/O. Events since last encounter Pt states no dizziness/lightheadedness. States he is eating and drinking. No complaints at this time. ENT: Denies: Head Aches, Ear Pain, Dysphagia Pulmonary: Denies: Dyspnea, Cough Cardiovascular: Denies: Chest Pain, Palpitations, Orthopnea, Paroxysmal Noc. Dyspnea, Lt Headedness Gastrointestinal: Denies: Nausea, Vomiting, Abdominal Pain, Diarrhea, Constipation Objective Physical Examination General Exam: Positive: Alert Eye Exam: Positive: PERRLA Chest Exam: Positive: Clear to auscultation Heart Exam: Positive: Rate Normal, Regular Rhythm, Normal S1, Normal S2, Negative: Murmurs, Rubs Skin Exam: Positive: Nl turgor and temperature Assessment /Plan Problems (1) UTI (urinary tract infection) Status: Acute Problem Text: * UC result from [facility] noted to E faecalis >100,000. * Sensitivities reviewed. * Nitrofurantoin 100mg po BID D4. * Scr noted to be WNL as per labs from [facility]. * Afebrile/no leukocytosis. * UA/UC not obtained as requested. Will reorder. * CBC/CMP. * Monitor. (2) Orthostatic hypotension Status: Chronic Problem Text: * Pt with h/o orthostatic hypotension. * Orthostatic VS requested. * Pt noted to have Orthostatic changes. Asymptomatic at this time. * Discussed with Dr Brantley. * Pt aware to change position slowly, report any change in symptom status, drink plenty of fluids. * TEDS if OK with attending. * Update labs. CBC/CMP. * Pt is noted to be taking Clozaril, Trazodone, Prozac which can be related to orthostasis. * Effexor discontinued 09/26/16. * Update EKG as meds can also contribute to QT prolongation. Plan/VTE VTE Prophylaxis Ordered?: No (ambulatory) VS, I&O, 24H, Fishbone Vital Signs/I&O Vital Signs Date Time Temp Pulse Resp B/P (MAP) Pulse Ox O2 Delivery O2 Flow Rate FiO2 09/27/16 06:10 18 147/81 (103) 90 103/67 (79) 120 109/74 (86) 511/17 18:00 98.9 16 09/25/16 18:00 Room Air 09/23/16 01:10 94 Laboratory Data 24H LABS Laboratory Tests 2 09/27/16 07:18: White Blood Count 8.0, Red Blood Count 4.49, Hemoglobin 14.5, Hematocrit 41.9L, Mean Corpuscular Volume 93.2, Mean Corpuscular Hemoglobin 32.3, Mean Corpuscular Hemoglobin Concent 34.6, Red Cell Distribution Width 12.8, Platelet Count 201, Neutrophils (%) (Auto) 59.0, Lymphocytes (%) (Auto) 22.8L, Monocytes (%) (Auto) 8.4H, Eosinophils (%) (Auto) 6.8H, Basophils (%) (Auto) 1.0, Neutrophils # (Auto) 4.7, Lymphocytes # (Auto) 2.0, Monocytes # (Auto) 0.7, Eosinophils # (Auto) 0.5, Basophils # (Auto) 0.1, Large Unclassified Cells % 2.0 , Large Unclassified Cells # 0.2 CBC/BMP Laboratory Tests 09/27/16 07:18 Red Blood Count 4.49, Mean Corpuscular Volume 93.2, Mean Corpuscular Hemoglobin 32.3, Mean Corpuscular Hemoglobin Concent 34.6, Red Cell Distribution Width 12.8 , Neutrophils (%) (Auto) 59.0, Lymphocytes (%) (Auto) 22.8 L, Monocytes (%) ( Auto) 8.4 H, Eosinophils (%) (Auto) 6.8 H, Basophils (%) (Auto) 1.0, Neutrophils # (Auto) 4.7, Lymphocytes # (Auto) 2.0, Monocytes # (Auto) 0.7, Eosinophils # (Auto) 0.5, Basophils # (Auto) 0.1 Nora Fountain September 27, 2016 10:01
[2016-09-27 10:15] VITALS: BP_SYST 102; BP_SYST 113; BP_SYST 134; BP_DIAS 70; BP_DIAS 78; BP_DIAS 79
[2016-09-27 10:58] LABS: ALBUMIN 3.5 GM/DL (3.2-5.2); ALBUMIN/GLOBULIN RATIO 1.13 (1.00-1.93); ALKALINE PHOSPHATASE 101 U/L (45-117); ALT/SGPT 37 U/L (12-78); ANION GAP 5 MEQ/L (8-16); AST/SGOT 16 U/L (15-37); BILIRUBIN,TOTAL 0.8 MG/DL (0.2-1.0); BLOOD UREA NITROGEN 19 MG/DL (7-18); CALCIUM LEVEL 8.9 MG/DL (8.8-10.2); CARBON DIOXIDE LEVEL 29 MEQ/L (21-32); CHLORIDE LEVEL 109 MEQ/L (98-107); CREATININE FOR GFR 0.72 MG/DL (0.70-1.30); GLOMERULAR FILTRATION RATE > 60.0 (>49); GLUCOSE, FASTING 106 MG/DL (80-110); POTASSIUM SERUM 4.2 MEQ/L (3.5-5.1); SODIUM LEVEL 143 MEQ/L (136-145); TOTAL PROTEIN 6.6 GM/DL (6.4-8.2)
--- NOTE | 2016-09-27 15:40 | MHIPNPDOC ---
[facility] Progress Note Progress Note DATE OF SERVICE: 09/27/16 HISTORY: Patient is a 66-year-old male who was discharged from [facility] months ago and was transferred from [facility] to [facility] complaining of increased auditory hallucinations over the course of the last several weeks, reported at intake that audiovisual hallucinations are self derogatory and were commanding him to kill himself. Patient noted he has been struggling with paranoia and auditory hallucinations, and severe depression since February 2015, had been living in [facility] housing. Patient was noted to be up in hallway earlier in morning, has showered and has been attending to ADLs and, per EMR, is getting out of bed for medications and to eat, is observed to be lying in bed at time of interaction but sits up readily to meet with display card writer for assessment purposes. Patient rates current anxiety level as 5/10, depression 5/10, denies suicidal and homicidal ideation and denies urge to engage in self-injurious behavior. Patient indicates he has experienced no auditory hallucinations this morning, notes last experience last night with command to harm self, denies involving means/plan/intent, adds he does not experience urge to ask on AH. Patient continues to agree to alert staff if symptoms return and/or are unmanageable. Patient also reports reduction in symptoms paranoia, denies irritability, agitation, impulsivity and states he feels his mood is level. Patient states he continues to experience reduced energy level, concentration and focus, but notes some improvement, is not sure if fatigue is related to medication or symptoms of depression. Patient states appetite is stable and he is sleeping well, denies nightmares symptoms. Patient denies symptoms of physical pain, denies symptoms of "shakiness" to legs which he reported yesterday. Patient is again strongly encouraged to be up out of bed and participate in unit activities. Patient has been instructed to keep self hydrated, denies symptoms of physical pain, and presents with no signs of acute distress at time of interaction. Clinical consultation, review of recent lab results and orthostatics completed with provider on Clozaril registry, Rx entered for Clozaril dose increase effective tonight, recommended ongoing monitoring of orthostatics to evaluate need for TEDS. Update provided to nursing who was asked to encourage patient to be up out of bed and ensure that patient is evaluated by weekend provider for response to medication and need for TEDS. 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 VITAL SIGNS: See below. Continues to fluctuate, patient is asymptomatic. PA has evaluated and will continue to monitor, has ordered orthostatic vital signs and repeat EKG, patient has been instructed to keep self hydrated and has been educated on fall precautions, TEDS ordered. NEW TEST RESULTS: CBC repeated 09/27/16, mono % and eos % remain elevated, HCT and lymph low. Patient is afebrile/no leukocytosis. 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 Left TKA, right rotator cuff repair, varicose veins BL lower extremities 01/25/[address] completed - negative noncontrast head CT 03/07/15 brain MRI with the following findings: Chronic small vessel white matter ischemic change with scattered punctuated and confluent periventricular, subcortical and deep centrum semiovale foci bilaterally on T2 and FLAIR images. No ventriculomegaly, mass, hemorrhage or acute infarct. Brainstem, cerebellum and posterior foci intact and the 7/8 cranial nerve complexes and mastoids are clear. The ethmoids and frontal sinuses with minor mucosal thickening. Otherwise negative. Labs completed by [facility] prior to transfer indicated elevated chloride, BUN, glucose and bacteria and urine. PA is aware of bacteria in urine and is treating. UDS negative on admission 10/29/15 EKG sinus rhythm possible right ventricular conduction delay increased rate 07/08/1509/2016 EKG from [facility] sinus rhythm 09/27/16 urine culture pending CURRENT MEDICATIONS: See below. MENTAL STATUS EXAMINATION: Patient is a 66-year old male, who is cooperative and more engageable today, remains withdrawn and isolative to room, makes improved eye contact, has showered and appears less disheveled, dressed in hospital clothing, ambulates with steady gait, appears stated age Speech: Is of normal volume, coherent, delayed, less impoverished, more verbally engageable today Language skills: Within normal limits Thought processes including: Less disorganized, more goal-directed Thought content: Less perseverative, less tangential, generally rational and logical Abstract reasoning and computation: Limited Description of associations: Remain loose but less so today Description of abnormal or psychotic thoughts: Denies current suicidal and homicidal ideation, however, indicates last experienced auditory hallucinations with command to harm self last night, denies visual hallucinations. Patient does not appear internally preoccupied at time of interaction. Judgment: Limited Insight: Limited Orientation: A and O 3 Recent and remote memory: Appears intact Attention span and concentration: Limited but shows signs of improvement Language: Limited but shows signs of improvement Fund of knowledge: Appears within normal limits Mood: "I'm feeling better, the voices are better, I am and have them at all today." Patient remains depressed, appears less anxious today, no mood lability noted Affect: Remains blunted but is more animated today, generally congruent with mood DIAGNOSES: Unspecified psychotic disorder, rule out schizoaffective disorder, rule out schizophrenia, rule out major depressive disorder with psychotic features. Alcohol use disorder, severe, in sustained remission ASSESSMENT: Patient is 66-year-old male who was recently discharged from [facility], remains isolative to room and is lying in bed, however, is more engageable today , is pleasant and cooperative, presents with no behavior management challenges. Patient denies suicidal and homicidal ideation and verbalizes awareness of how to access supportive services on the unit if needed, agrees to alert staff if symptoms of command auditory hallucinations return/become unmanageable. Patient reports reduction in symptoms of psychosis since initiation of Clozaril, is aware of potential side effects and need for ongoing lab work, is agreeable to dose increase this evening in effort to further address symptoms of psychosis. Patient denies symptoms of EPS, indicates Prozac remains helpful in addressing symptoms of depression, hydroxyzine is helping to control symptoms of anxiety, and patient reports improvement to sleep with intermittent trazodone utilization. Patient reports fatigue, indicates he is not sure if it is a result of depression or medication side effects, indicates is manageable, and denies other medication side effects. Patient has been encouraged to be active on unit and participate in unit programming. Will continue to monitor patient's response to medication and for side effects. Will also continue to evaluate patient safety, resolution of command suicidal ideation and auditory hallucinations, and discharge readiness. Patient states when prepared for discharge he plans to return to [facility] housing in [place] and resume outpatient psychiatric services through [facility]. Per product coordinator, patient may return to [facility] apartment, has supportive sister, and is connected with [facility], and [facility]. MANAGEMENT PLAN: Increase Clozaril to 50 mg po q hs with plans to titrate as tolerated by patient. Continue Cogentin to 1 mg po q am, trazodone 50 mg po hs PRN insomnia, Prozac 30 mg po q am, and hydroxyzine 25 mg po BID. Repeat CBC with differential ordered for 10/01/16 Fall risk precautions Orthostatics ordered QID Maintain safety precautions Patient to attend groups and participate in unit programming to develop coping strategies Engage patient in discharge planning process and arrange meeting with support system to ensure safe discharge planning when appropriate Patient to follow up with [facility] within 5-7 days of discharge TIME SPENT: 35 minutes Vital Signs Vital Signs Date Time Temp Pulse Resp B/P (MAP) Pulse Ox O2 Delivery O2 Flow Rate FiO2 09/27/16 10:15 91 113/79 (90) 111 102/70 (81) 65 134/78 (96) 09/26/16 18:00 98.9 16 09/25/16 18:00 Room Air 09/23/16 01:10 94 Laboratory Data 24H Labs Laboratory Tests 2 09/27/16 07:18: White Blood Count 8.0, Red Blood Count 4.49, Hemoglobin 14.5, Hematocrit 41.9L, Mean Corpuscular Volume 93.2, Mean Corpuscular Hemoglobin 32.3, Mean Corpuscular Hemoglobin Concent 34.6, Red Cell Distribution Width 12.8, Platelet Count 201, Neutrophils (%) (Auto) 59.0, Lymphocytes (%) (Auto) 22.8L, Monocytes (%) (Auto) 8.4H, Eosinophils (%) (Auto) 6.8H, Basophils (%) (Auto) 1.0, Neutrophils # (Auto) 4.7, Lymphocytes # (Auto) 2.0, Monocytes # (Auto) 0.7, Eosinophils # (Auto) 0.5, Basophils # (Auto) 0.1, Large Unclassified Cells % 2.0 , Large Unclassified Cells # 0.2 09/27/16 10:19: Anion Gap 5L, Glomerular Filtration Rate > 60.0, Blood Urea Nitrogen 19H, Creatinine 0.72, Sodium Level 143, Potassium Level 4.2, Chloride Level 109H, Carbon Dioxide Level 29, Calcium Level 8.9, Aspartate Amino Transf (AST/SGOT) 16 , Alanine Aminotransferase (ALT/SGPT) 37, Alkaline Phosphatase 101, Total Bilirubin 0.8, Total Protein 6.6, Albumin 3.5, Albumin/Globulin Ratio 1.13 09/27/16 12:45: Urine Appearance CLEAR, Urine Color YELLOW, Urine pH 5.0, Urine Specific [place] 1.023, Urine Protein NEGATIVE, Urine Glucose (UA) NEGATIVE, Urine Ketones NEGATIVE, Urine Urobilinogen 0.2, Urine Bilirubin NEGATIVE, Urine Leukocyte Esterase NEGATIVE, Urine Blood NEGATIVE, Urine Nitrite NEGATIVE, Urine WBC (Auto) 2, Urine RBC (Auto) 1, Urine Hyaline Casts (Auto) 0, Urine Bacteria (Auto) NEGATIVE, Urine Squamous Epithelial Cells 1, Urine Mucus (Auto) SMALL, Urine Sperm (Auto) CBC/BMP Laboratory Tests 09/27/16 07:18 Red Blood Count 4.49, Mean Corpuscular Volume 93.2, Mean Corpuscular Hemoglobin 32.3, Mean Corpuscular Hemoglobin Concent 34.6, Red Cell Distribution Width 12.8 , Neutrophils (%) (Auto) 59.0, Lymphocytes (%) (Auto) 22.8 L, Monocytes (%) ( Auto) 8.4 H, Eosinophils (%) (Auto) 6.8 H, Basophils (%) (Auto) 1.0, Neutrophils # (Auto) 4.7, Lymphocytes # (Auto) 2.0, Monocytes # (Auto) 0.7, Eosinophils # (Auto) 0.5, Basophils # (Auto) 0.1 09/27/16 10:19 Calcium Level 8.9, Aspartate Amino Transf (AST/SGOT) 16, Alanine Aminotransferase (ALT/SGPT) 37, Alkaline Phosphatase 101, Total Bilirubin 0.8, Total Protein 6.6, Albumin 3.5 Current Medications Current Medications Acetaminophen (Tylenol Tab) 650 mg Q6HP PRN PO HEADACHE or DISCOMFORT; Start at 01:30; Stop 10/23/16 at 01:29 Al Hydrox/Mg Hydrox/Simethicone (Mylanta) 30 ml Q4HP PRN PO HEARTBURN/ INDIGESTION; Start 09/23/16 at 01:30; Stop 10/23/16 at 01:29 Asenapine (Saphris) 5 mg QHS SL Last administered on 09/23/16t 20:21; Start 09/23 at 21:00; Stop 09/24/16 at 18:39; Status DC Benztropine Mesylate (Cogentin) 1 mg QAM PO Last administered on 09/27/16 08: 31; Start 09/27/16 at 09:00; Stop 10/27/16 at 08:59 Benztropine Mesylate (Cogentin) 2 mg DAILY PO Last administered on 09/26/16 09 :27; Start 09/23/16 at 09:00; Stop 09/26/16 at 15:08; Status DC Clozapine (Clozaril) 25 mg QHS PO Last administered on 09/26/16 21:56; Start 09/24/16 at 21:00; Stop 09/27/16 at 13:01; Status DC Clozapine (Clozaril) 50 mg QHS PO ; Start 09/27/16 at 21:00; Stop 10/04/16 at 20 :59 Fluoxetine HCl (PROzac) 30 mg DAILY PO Last administered on 09/27/16 08:31; Start 09/23/16 at 09:00; Stop 10/23/16 at 08:59 Fluphenazine HCl (Prolixin) 5 mg QAM PO Last administered on 09/25/16 09:42; Start 09/25/16 at 09:00; Stop 09/25/16 at 12:00; Status DC Fluphenazine HCl (Prolixin) 10 mg QAM PO Last administered on 09/24/16 09:08; Start 09/23/16 at 09:00; Stop 09/24/16 at 18:39; Status DC Home Med (Med Rec Complete!) ASDIRECTED XX ; Start 09/23/16 at 01:45; Stop at 01:48; Status DC Hydroxyzine HCl (Atarax) 25 mg BID PO Last administered on 09/27/16 08:31; Start 09/23/16 at 09:00; Stop 10/23/16 at 08:59 Magnesium Hydroxide (Milk Of Magnesia) 30 ml DAILYPRN PRN PO CONSTIPATION; Start 09/23/16 at 01:30; Stop 10/23/16 at 01:29 Nicotine (Nicoderm Cq 14mg) 1 patch DAILY TD Last administered on 09/27/16 08: 31; Start 09/23/16 at 09:00; Stop 10/23/16 at 08:59 Nitrofurantoin Monoh/Nitrofur Macro (Macrobid) 100 mg BID PO Last administered on 09/27/16 08:31; Start 09/24/16 at 09:00; Stop 10/01/16 at 08:59 Trazodone HCl (Desyrel) 50 mg QHS PO Last administered on 09/23/16 20:21; Start 09/23/16 at 00:00; Stop 09/24/16 at 18:39; Status DC Trazodone HCl (Desyrel) 50 mg QHS PRN PO INSOMNIA Last administered on 21:58; Start 09/24/16 at 18:45; Stop 10/24/16 at 18:44 Venlafaxine HCl (Effexor Xr) 37.5 mg DAILY PO Last administered on 09:27; Start 09/26/16 at 09:00; Stop 09/26/16 at 12:00; Status DC Venlafaxine HCl (Effexor Xr) 75 mg DAILY PO Last administered on 09/25/16 08:31; Start 09/25/16 at 09:00; Stop 09/25/16 at 14:31; Status DC Venlafaxine HCl (Effexor Xr) 150 mg DAILY PO Last administered on 09/24/16 09:07; Start 09/23/16 at 09:00; Stop 09/24/16 at 18:39; Status DC Allergies Coded Allergies: Ibuprofen (Verified Allergy, Mild, ITCHING, 09/22/16) Amira Hernandez September 27, 2016 15:40
[2016-09-27 18:00] VITALS: BP_SYST 112; BP_SYST 141; BP_SYST 150; BP_DIAS 79; BP_DIAS 84; BP_DIAS 88
[2016-09-27] MEDS: traZODone 50 MG TAB PO PRN (22:58)
[2016-09-27] MEDS: cloZAPine 25 MG TAB (S0136) PO SCH (22:58)
[2016-09-28 06:30] VITALS: BP_SYST 111; BP_SYST 118; BP_SYST 142; BP_DIAS 58; BP_DIAS 68; BP_DIAS 74
[2016-09-28] MEDS: BENZTROPINE 1 MG TAB PO SCH (09:18)
[2016-09-28] MEDS: NICOTINE 14 MG/24 HR TRANSDERMAL TD SCH (09:18)
[2016-09-28] MEDS: hydrOXYzine 25 MG TAB PO SCH ×2 (09:18→20:57)
[2016-09-28] MEDS: NITROFURANTOIN (MACROBID) 100 MG CAP PO SCH ×2 (09:18→20:57)
[2016-09-28] MEDS: FLUoxetine 10 MG CAP PO SCH (09:18)
[2016-09-28 12:00] VITALS: BP_SYST 109; BP_SYST 133; BP_SYST 142; BP_DIAS 74; BP_DIAS 80; BP_DIAS 81
--- NOTE | 2016-09-28 17:17 | ECGEPIP ---
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 ABNORMAL RHYTHM ECG Electronically Signed On 09-28-2016 17:17:10 EDT by Negro Hidalgo
[2016-09-28 18:00] VITALS: BP_SYST 100; BP_SYST 138; BP_SYST 142; BP_DIAS 68; BP_DIAS 82; BP_DIAS 85
[2016-09-28] MEDS: cloZAPine 25 MG TAB (S0136) PO SCH (20:57)
[2016-09-28] MEDS: traZODone 50 MG TAB PO PRN (20:57)
[2016-09-29 06:35] VITALS: BP_SYST 119; BP_SYST 130; BP_SYST 92; BP_DIAS 64; BP_DIAS 73; BP_DIAS 79
[2016-09-29] MEDS: NITROFURANTOIN (MACROBID) 100 MG CAP PO SCH ×2 (08:36→21:09)
[2016-09-29] MEDS: hydrOXYzine 25 MG TAB PO SCH ×2 (08:36→21:10)
[2016-09-29] MEDS: NICOTINE 14 MG/24 HR TRANSDERMAL TD SCH (08:37)
[2016-09-29] MEDS: BENZTROPINE 1 MG TAB PO SCH (08:37)
[2016-09-29] MEDS: FLUoxetine 10 MG CAP PO SCH (08:37)
[2016-09-29 18:00] VITALS: BP_SYST 138; BP_SYST 140; BP_SYST 9; BP_DIAS 67; BP_DIAS 76; BP_DIAS 79
[2016-09-29] MEDS: traZODone 50 MG TAB PO PRN (21:09)
[2016-09-29] MEDS: cloZAPine 25 MG TAB (S0136) PO SCH (21:10)
[2016-09-30 06:18] VITALS: BP 145/84
[2016-09-30 06:19] VITALS: BP 150/90
[2016-09-30 06:20] VITALS: BP 113/71
--- NOTE | 2016-09-30 09:06 | MHIPNPDOC ---
[facility] Progress Note Progress Note DATE OF SERVICE: 09/30/16 HISTORY: Patient is a 66-year-old male who [place] [facility] [place] and was transferred from [facility] to [facility] complaining of increased auditory hallucinations over the course of the last several weeks, reported at intake that audiovisual hallucinations are self derogatory and were commanding him to kill himself. Patient noted he has been struggling with paranoia and auditory hallucinations, and severe depression since February 2015, had been living in [facility] housing. Patient was was observed to be resting in bed, indicates he has not been attending groups. Patient was agreeable to getting up and ambulating hallways with copywriter, and then attended group. Patient reports reduced auditory hallucinations, indicates last experienced this morning with suicidal ideation which involved no means or concrete command, denies current suicidal or homicidal ideation, denies visual hallucinations, denies symptoms of anxiety and reports 5/10 depression, denies urge to engage in self-injurious behavior. Patient continues to feel medication is helping to reduce symptoms of anxiety, depression, and psychosis, denies medication side effects and continues to agree to alert staff if symptoms return and/or are unmanageable. Patient also reports reduction in symptoms paranoia, denies irritability, agitation, impulsivity and states he feels his mood is level. Patient states he continues to experience reduced energy level, notes improvement to concentration and focus , states appetite is stable and he is sleeping well, denies nightmares symptoms. Patient denies symptoms of physical pain, denies symptoms of "shakiness" to legs, is again strongly encouraged to be up out of bed and participate in unit activities. Patient has been instructed to keep self hydrated, denies symptoms of physical pain, and presents with no signs of acute distress at time of interaction. Recommended ongoing monitoring of orthostatics. Recommendation was made to the patient to utilize TEDS, patient declined and agreed to be more active and up and out of bed, and attend groups. Nursing has been instructed to continue to encourage patient to be up out of bed and to utilize TEDS. maintenance worker has requested medication treatment history from [facility]. VITAL SIGNS: See below. Patient remains asymptomatic. PA has evaluated and will continue to monitor, ordered orthostatic vital signs and repeat EKG, patient has been instructed to keep self hydrated and has been educated on fall precautions, TEDS have been ordered and patient has been encouraged to utilize, is currently declining. NEW TEST RESULTS: CBC repeated 09/27/16, mono % and eos % remain elevated, HCT and lymph low. Patient is afebrile/no leukocytosis. 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 Left TKA, right rotator cuff repair, varicose veins BL lower extremities 01/25/[address] completed - negative noncontrast head CT 03/07/15 brain MRI with the following findings: Chronic small vessel white matter ischemic change with scattered punctuated and confluent periventricular, subcortical and deep centrum semiovale foci bilaterally on T2 and FLAIR images. No ventriculomegaly, mass, hemorrhage or acute infarct. Brainstem, cerebellum and posterior foci intact and the 7/8 cranial nerve complexes and mastoids are clear. The ethmoids and frontal sinuses with minor mucosal thickening. Otherwise negative. Labs completed by [facility] prior to transfer indicated elevated chloride, BUN, glucose and bacteria and urine. PA is aware of bacteria in urine and is treating. UDS negative on admission 10/29/15 EKG sinus rhythm possible right ventricular conduction delay increased rate 07/08/1509/2016 EKG from [facility] sinus rhythm 09/27/16 urine culture pending CURRENT MEDICATIONS: See below. MENTAL STATUS EXAMINATION: Patient is a 66-year old male, who is cooperative and more engageable today, remains withdrawn and isolative to room but is engageable and will get up and ambulate and, with prompting will attend groups, makes improved eye contact, has showered and appears less disheveled, dressed in hospital clothing, ambulates with steady gait, appears stated age Speech: Is of normal volume, coherent, delayed, less impoverished, more verbally engageable today Language skills: Within normal limits Thought processes including: Less disorganized, more goal-directed Thought content: Less perseverative, less tangential, generally rational and logical Abstract reasoning and computation: Limited Description of associations: Remain loose but less so today Description of abnormal or psychotic thoughts: Denies current suicidal and homicidal ideation, denies current auditory or visual hallucinations. Patient does not appear internally preoccupied at time of interaction. Judgment: Limited Insight: Limited Orientation: A and O 3 Recent and remote memory: Appears intact Attention span and concentration: Limited but shows signs of improvement Language: Limited but shows signs of improvement Fund of knowledge: Appears within normal limits Mood: "I'm feeling a little better, the voices are less." Patient remains depressed, appears less anxious today, no mood lability noted Affect: Remains blunted but is more animated today, generally congruent with mood DIAGNOSES: Unspecified psychotic disorder, rule out schizoaffective disorder, rule out schizophrenia, rule out major depressive disorder with psychotic features. Alcohol use disorder, severe, in sustained remission ASSESSMENT: Patient is 66-year-old male who was recently discharged from [facility], remains isolative to room and is lying in bed, however, is more engageable today and will ambulate and attend groups with prompting, remains pleasant and cooperative, presents with no behavior management challenges. Patient denies suicidal and homicidal ideation and verbalizes awareness of how to access supportive services on the unit if needed, agrees to alert staff if symptoms of command auditory hallucinations return/become unmanageable. Patient continues to report reduction in symptoms of psychosis since initiation of Clozaril, is aware of potential side effects and need for ongoing lab work, is agreeable to dose increase this evening in effort to further address symptoms of psychosis. Patient denies symptoms of EPS, indicates Prozac remains helpful in addressing symptoms of depression, hydroxyzine is helping to control symptoms of anxiety, is agreeable to changing hydroxyzine to PRN in effort to increase energy level during the day. Patient continues to report improvement to sleep with intermittent trazodone utilization. Patient denies to report fatigue, indicates he is not sure if it is a result of depression or medication side effects, indicates is manageable, and denies other medication side effects. Patient has been encouraged to be active on unit and participate in unit programming. Will continue to monitor patient's response to medication and for side effects. Will also continue to evaluate patient safety, resolution of command suicidal ideation and auditory hallucinations, and discharge readiness. Patient states when prepared for discharge he plans to return to [facility] housing in [place] and resume outpatient psychiatric services through [facility]. Per export coordinator, patient may return to [facility] apartment, has supportive sister, and is connected with [facility], and [facility]. MANAGEMENT PLAN: Change hydroxyzine 25 mg to BID PRN. Continue Clozaril to 50 mg po q hs with plans to titrate as tolerated by patient. Continue Cogentin to 1 mg po q am, trazodone 50 mg po hs PRN insomnia, Prozac 30 mg po q am. Repeat CBC with differential ordered for 10/01/16 Encourage patient to be up out of bed, attend groups, hydrate, utilize TEDS Fall risk precautions Orthostatics ordered QID Maintain safety precautions Patient to attend groups and participate in unit programming to develop coping strategies Engage patient in discharge planning process and arrange meeting with support system to ensure safe discharge planning when appropriate Patient to follow up with PCM within 5-7 days of discharge TIME SPENT: 35 minutes Vital Signs Vital Signs Date Time Temp Pulse Resp B/P (MAP) Pulse Ox O2 Delivery O2 Flow Rate FiO2 09/30/16 06:20 107 113/71 (85) 09/30/16 06:18 97.7 18 Room Air Current Medications Current Medications Acetaminophen (Tylenol Tab) 650 mg Q6HP PRN PO HEADACHE or DISCOMFORT; Start at 01:30; Stop 10/23/16 at 01:29 Al Hydrox/Mg Hydrox/Simethicone (Mylanta) 30 ml Q4HP PRN PO HEARTBURN/ INDIGESTION; Start 09/23/16 at 01:30; Stop 10/23/16 at 01:29 Asenapine (Saphris) 5 mg QHS SL Last administered on 09/23/16 20:21; Start 09/23 at 21:00; Stop 09/24/16 at 18:39; Status DC Benztropine Mesylate (Cogentin) 1 mg QAM PO Last administered on 09/29/16 08: 37; Start 09/27/16 at 09:00; Stop 10/27/16 at 08:59 Benztropine Mesylate (Cogentin) 2 mg DAILY PO Last administered on 09/26/16 09 :27; Start 09/23/16 at 09:00; Stop 09/26/16 at 15:08; Status DC Clozapine (Clozaril) 25 mg QHS PO Last administered on 09/26/16 21:56; Start 09/24/16 at 21:00; Stop 09/27/16 at 13:01; Status DC Clozapine (Clozaril) 50 mg QHS PO Last administered on 09/29/16 21:10; Start 09/27/16 at 21:00; Stop 10/04/16 at 20:59 Fluoxetine HCl (PROzac) 30 mg DAILY PO Last administered on 09/29/16 08:37; Start 09/23/16 at 09:00; Stop 10/23/16 at 08:59 Fluphenazine HCl (Prolixin) 5 mg QAM PO Last administered on 09/25/16 09:42; Start 09/25/16 at 09:00; Stop 09/25/16 at 12:00; Status DC Fluphenazine HCl (Prolixin) 10 mg QAM PO Last administered on 09/24/16 09:08; Start 09/23/16 at 09:00; Stop 09/24/16 at 18:39; Status DC Home Med (Med Rec Complete!) ASDIRECTED XX ; Start 09/23/16 at 01:45; Stop at 01:48; Status DC Hydroxyzine HCl (Atarax) 25 mg BID PO Last administered on 09/29/16 21:10; Start 09/23/16 at 09:00; Stop 10/23/16 at 08:59 Magnesium Hydroxide (Milk Of Magnesia) 30 ml DAILYPRN PRN PO CONSTIPATION; Start 09/23/16 at 01:30; Stop 10/23/16 at 01:29 Nicotine (Nicoderm Cq 14mg) 1 patch DAILY TD Last administered on 09/29/16 08: 37; Start 09/23/16 at 09:00; Stop 10/23/16 at 08:59 Nitrofurantoin Monoh/Nitrofur Macro (Macrobid) 100 mg BID PO Last administered on 09/29/16 21:09; Start 09/24/16 at 09:00; Stop 10/01/16 at 08:59 Trazodone HCl (Desyrel) 50 mg QHS PO Last administered on 09/23/16 20:21; Start 09/23/16 at 00:00; Stop 09/24/16 at 18:39; Status DC Trazodone HCl (Desyrel) 50 mg QHS PRN PO INSOMNIA Last administered on 21:09; Start 09/24/16 at 18:45; Stop 10/24/16 at 18:44 Venlafaxine HCl (Effexor Xr) 37.5 mg DAILY PO Last administered on 09:27; Start 09/26/16 at 09:00; Stop 09/26/16 at 12:00; Status DC Venlafaxine HCl (Effexor Xr) 75 mg DAILY PO Last administered on 09/25/16 08:31; Start 09/25/16 at 09:00; Stop 09/25/16 at 14:31; Status DC Venlafaxine HCl (Effexor Xr) 150 mg DAILY PO Last administered on 09/24/16 09:07; Start 09/23/16 at 09:00; Stop 09/24/16 at 18:39; Status DC Allergies Coded Allergies: Ibuprofen (Verified Allergy, Mild, ITCHING, 09/22/16) Amira Hernandez September 30, 2016 09:06
[2016-09-30] MEDS: NICOTINE 14 MG/24 HR TRANSDERMAL TD SCH (09:26)
[2016-09-30] MEDS: hydrOXYzine 25 MG TAB PO SCH (09:26)
[2016-09-30] MEDS: FLUoxetine 10 MG CAP PO SCH (09:26)
[2016-09-30] MEDS: BENZTROPINE 1 MG TAB PO SCH (09:26)
[2016-09-30] MEDS: NITROFURANTOIN (MACROBID) 100 MG CAP PO SCH ×2 (09:26→20:10)
[2016-09-30 12:38] VITALS: BP_SYST 124; BP_SYST 126; BP_SYST 132; BP_DIAS 79; BP_DIAS 87; BP_DIAS 90
[2016-09-30 18:00] VITALS: BP_SYST 126; BP_SYST 137; BP_SYST 143; BP_DIAS 76; BP_DIAS 80
[2016-09-30] MEDS ORDERED: hydrOXYzine 25 MG TAB PO PRN (18:15)
[2016-09-30] MEDS: traZODone 50 MG TAB PO PRN (20:10)
[2016-09-30] MEDS: cloZAPine 25 MG TAB (S0136) PO SCH (20:10)
[2016-10-01 06:11] VITALS: BP_SYST 128; BP_SYST 141; BP_SYST 147; BP_DIAS 71; BP_DIAS 84; BP_DIAS 86
[2016-10-01 07:55] LABS: BASO % 0.7 % (0.0-1.0); EOS # 0.4 K/mm3 (0.0-0.50); EOS % 7.5 % (0.0-3.0); LARGE UNSTAINED CELL # 0.1 K/mm3 (0.0-0.4); LARGE UNSTAINED CELL % 2.2 % (0.0-4.0); LYMPH # 1.8 K/mm3 (1.5-4.5); MEAN CORPUSCULAR HEMOGLOBIN 31.6 pg (27.0-33.0); MEAN CORPUSCULAR HGB CONC 33.8 g/dl (32.0-36.5); MEAN CORPUSCULAR VOLUME 93.5 fl (80.0-96.0); MONO # 0.5 K/mm3 (0.0-0.8); MONO % 8.8 % (0.0-5.0); NEUTROPHILS # 3.3 K/mm3 (1.8-7.7); NEUTROPHILS % 53.8 % (36.0-66.0); PLATELET COUNT, AUTOMATED 207 k/mm3 (150-450); RED CELL DISTRIBUTION WIDTH 12.8 % (11.5-14.5); WHITE BLOOD COUNT 6.1 K/mm3 (4.0-10.0)
[2016-10-01] MEDS: NICOTINE 14 MG/24 HR TRANSDERMAL TD SCH (09:08)
[2016-10-01] MEDS: NITROFURANTOIN (MACROBID) 100 MG CAP PO SCH ×2 (09:08→21:01)
[2016-10-01] MEDS: FLUoxetine 10 MG CAP PO SCH (09:08)
[2016-10-01] MEDS: BENZTROPINE 1 MG TAB PO SCH (09:08)
[2016-10-01 11:43] VITALS: BP_SYST 132; BP_SYST 139; BP_SYST 143; BP_DIAS 78; BP_DIAS 82; BP_DIAS 83
--- NOTE | 2016-10-01 16:09 | IPNPDOC ---
Text Note Date of Service 10/01/16 NOTE Calculated ANC for Clozaril increase to 75 mg QHS, last ANC= 3281.8 cells/mm3 If ANC goes below 1500 cells/mm^3, then concern for neutropenia Increased Clozaril to 75mg QHS GME ATTESTATION My preceptor for this patient encounter was physically present in the building during the encounter and was fully available. As needed, all aspects of the patient interview, examination, medical decision making process, and medical care plan development were reviewed and approved by the preceptor. Preceptor is aware and concurs with the plan as stated in the body of this note and will attest to such by his/her cosignature. SUSHMA KING DO October 01, 2016 16:09
[2016-10-01 18:08] VITALS: BP_SYST 104; BP_SYST 107; BP_SYST 132; BP_DIAS 66; BP_DIAS 76
[2016-10-01 18:10] VITALS: BP 132/76
--- NOTE | 2016-10-01 18:12 | MHIPNPDOC ---
[facility] Progress Note Progress Note DATE OF SERVICE: 10/01/16 HISTORY: Patient is a 66-year-old male who was discharged from [facility] 3 months ago and was transferred from [facility] to [facility] complaining of increased auditory hallucinations over the course of the last several weeks, reported at intake that audiovisual hallucinations are self derogatory and were commanding him to kill himself. Patient noted he has been struggling with paranoia and auditory hallucinations, and severe depression since February 2015, had been living in [facility] housing. Patient was was observed to be more active today, up out of bed walking and hallways at times, attending some groups, continues to require prompting to get up out of bed and participate in unit programming but is compliant when prompted to participate. Patient denies symptoms of auditory hallucinations at time of interaction, however, indicates she experience them earlier in the day, states symptoms are more subdued and involve undistinguished able "mumbling," denies command element to sensory experience. Patient denies current suicidal or homicidal ideation, denies visual hallucinations, reports anxiety level of 3/ 10, depression 5/10, denies urge to engage in self-injurious behavior. Patient continues to feel medication is helping to reduce symptoms of anxiety, depression, and psychosis, denies medication side effects and continues to agree to alert staff if symptoms return and/or are unmanageable. Patient is agreeable to Clozaril dose increase today in effort to further address symptoms of psychosis, denies symptoms of paranoia, irritability, agitation, impulsivity and states he feels his mood is level. Patient today reports marginal improvement in energy level, notes improvement to concentration and focus, states appetite is stable and he is sleeping well, denies nightmares symptoms. Patient denies symptoms of physical pain, denies medication side effects including previously reported "shakiness" to legs, is again strongly encouraged to be up out of bed and participate in unit activities. Patient has been instructed to keep self hydrated, denies symptoms of physical pain, and presents with no signs of acute distress at time of interaction. Recommended ongoing monitoring of orthostatics. Recommendation was also made to the patient to utilize TEDS, patient continues to decline and agrees to be more active and up and out of bed, and attend groups. Nursing has been instructed to continue to encourage patient to be up out of bed and to utilize TEDS. VITAL SIGNS: See below. Patient remains asymptomatic. PA has evaluated and will continue to monitor, ordered orthostatic vital signs and repeat EKG, patient has been instructed to keep self hydrated and has been educated on fall precautions, TEDS have been ordered and patient has been encouraged to utilize, is currently declining. NEW TEST RESULTS: CBC repeated 10/01/16, refer to EMR. Patient remains afebrile/ no leukocytosis. 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 Left TKA, right rotator cuff repair, varicose veins BL lower extremities 01/25/[address] completed - negative noncontrast head CT 03/07/15 brain MRI with the following findings: Chronic small vessel white matter ischemic change with scattered punctuated and confluent periventricular, subcortical and deep centrum semiovale foci bilaterally on T2 and FLAIR images. No ventriculomegaly, mass, hemorrhage or acute infarct. Brainstem, cerebellum and posterior foci intact and the 7/8 cranial nerve complexes and mastoids are clear. The ethmoids and frontal sinuses with minor mucosal thickening. Otherwise negative. Labs completed by [facility] prior to transfer indicated elevated chloride, BUN, glucose and bacteria and urine. PA is aware of bacteria in urine and is treating. UDS negative on admission 10/29/15 EKG sinus rhythm possible right ventricular conduction delay increased rate 07/08/1509/2016 EKG from [facility] sinus rhythm CURRENT MEDICATIONS: See below. MENTAL STATUS EXAMINATION: Patient is a 66-year old male, who is cooperative and more engageable today, remains withdrawn and but is less isolative to room with encouragement, will get up and ambulate and, with prompting, will attend groups, makes improved eye contact, has showered and appears less disheveled, dressed in hospital clothing , ambulates with steady gait, appears stated age Speech: Is of normal volume, coherent, delayed, less impoverished, more verbally engageable today Language skills: Within normal limits Thought processes including: Less disorganized, more goal-directed Thought content: Less perseverative, less tangential, generally rational and logical Abstract reasoning and computation: Limited Description of associations: Appear intact today Description of abnormal or psychotic thoughts: Denies current suicidal and homicidal ideation, denies current auditory or visual hallucinations. Patient does not appear internally preoccupied at time of interaction. Judgment: Limited Insight: Limited Orientation: A and O 3 Recent and remote memory: Appears intact Attention span and concentration: Limited but shows signs of improvement Language: Limited but shows signs of improvement Fund of knowledge: Appears within normal limits Mood: "Feeling a little better, I think." Patient appears less depressed and less anxious today, no mood lability noted Affect: Remains blunted but is more animated today, generally congruent with mood DIAGNOSES: Unspecified psychotic disorder, rule out schizoaffective disorder, rule out schizophrenia, rule out major depressive disorder with psychotic features. Alcohol use disorder, severe, in sustained remission ASSESSMENT: Patient is 66-year-old male who was recently discharged from [facility], is less isolative to room, more engageable today and will ambulate and attend groups with prompting, remains pleasant and cooperative, presents with no behavior management challenges. Patient denies suicidal and homicidal ideation and verbalizes awareness of how to access supportive services on the unit if needed, agrees to alert staff if symptoms of command auditory hallucinations return/become unmanageable. Patient continues to report reduction in symptoms of psychosis since initiation of Clozaril, is aware of potential side effects and need for ongoing lab work, is agreeable to dose increase this evening in effort to further address symptoms of psychosis. Patient denies symptoms of EPS , indicates Prozac remains helpful in addressing symptoms of depression, has not needed to utilize hydroxyzine since order was changed to PRN. Patient continues to report improvement to sleep with intermittent trazodone utilization. Patient denies to report fatigue, indicates he is not sure if it is a result of depression or medication side effects, indicates is manageable, and denies other medication side effects. Patient has been encouraged to be active on unit and participate in unit programming. Will continue to monitor patient's response to medication and for side effects. Will also continue to evaluate patient safety, resolution of command suicidal ideation auditory hallucinations, and discharge readiness. Patient states when prepared for discharge he plans to return to [facility] housing in [place] and resume outpatient psychiatric services through [facility]3]. 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 MANAGEMENT PLAN: Continue hydroxyzine 25 mg to BID PRN. Increase Clozaril to 75 mg po q hs with plans to titrate as tolerated by patient. Continue Cogentin to 1 mg po q am, trazodone 50 mg po hs PRN insomnia, Prozac 30 mg po q am. Repeat CBC with differential ordered for 10/04/16 Encourage patient to be up out of bed, attend groups, hydrate, utilize TEDS Fall risk precautions Orthostatics ordered QID Maintain safety precautions Patient to attend groups and participate in unit programming to develop coping strategies Engage patient in discharge planning process and arrange meeting with support system to ensure safe discharge planning when appropriate Patient to follow up with PCM within 5-7 days of discharge TIME SPENT: 35 minutes Vital Signs Vital Signs Date Time Temp Pulse Resp B/P (MAP) Pulse Ox O2 Delivery O2 Flow Rate FiO2 10/01/16 11:43 75 139/82 (101) 84 132/78 (96) 143/83 (103) 09/30/16 18:00 97.9 16 09/30/16 06:18 Room Air Laboratory Data 24H Labs Laboratory Tests 2 10/01/16 07:26: White Blood Count 6.1, Red Blood Count 4.47, Hemoglobin 14.1, Hematocrit 41.8L, Mean Corpuscular Volume 93.5, Mean Corpuscular Hemoglobin 31.6, Mean Corpuscular Hemoglobin Concent 33.8, Red Cell Distribution Width 12.8, Platelet Count 207, Neutrophils (%) (Auto) 53.8, Lymphocytes (%) (Auto) 27.0, Monocytes ( %) (Auto) 8.8H, Eosinophils (%) (Auto) 7.5H, Basophils (%) (Auto) 0.7, Neutrophils # (Auto) 3.3, Lymphocytes # (Auto) 1.8, Monocytes # (Auto) 0.5, Eosinophils # (Auto) 0.4, Basophils # (Auto) 0.0, Large Unclassified Cells % 2.2 , Large Unclassified Cells # 0.1 CBC/BMP Laboratory Tests 10/01/16 07:26 Red Blood Count 4.47, Mean Corpuscular Volume 93.5, Mean Corpuscular Hemoglobin 31.6, Mean Corpuscular Hemoglobin Concent 33.8, Red Cell Distribution Width 12.8 , Neutrophils (%) (Auto) 53.8, Lymphocytes (%) (Auto) 27.0, Monocytes (%) (Auto ) 8.8 H, Eosinophils (%) (Auto) 7.5 H, Basophils (%) (Auto) 0.7, Neutrophils # ( Auto) 3.3, Lymphocytes # (Auto) 1.8, Monocytes # (Auto) 0.5, Eosinophils # (Auto ) 0.4, Basophils # (Auto) 0.0 Current Medications Current Medications Acetaminophen (Tylenol Tab) 650 mg Q6HP PRN PO HEADACHE or DISCOMFORT; Start at 01:30; Stop 10/23/16 at 01:29 Al Hydrox/Mg Hydrox/Simethicone (Mylanta) 30 ml Q4HP PRN PO HEARTBURN/ INDIGESTION; Start 09/23/16 at 01:30; Stop 10/23/16 at 01:29 Asenapine (Saphris) 5 mg QHS SL Last administered on 09/23/16 20:21; Start 09/23 at 21:00; Stop 09/24/16 at 18:39; Status DC Benztropine Mesylate (Cogentin) 1 mg QAM PO Last administered on 10/01/16 09: 08; Start 09/27/16 at 09:00; Stop 10/27/16 at 08:59 Benztropine Mesylate (Cogentin) 2 mg DAILY PO Last administered on 09/26/16 09 :27; Start 09/23/16 at 09:00; Stop 09/26/16 at 15:08; Status DC Clozapine (Clozaril) 25 mg QHS PO Last administered on 09/26/16 21:56; Start 09/24/16 at 21:00; Stop 09/27/16 at 13:01; Status DC Clozapine (Clozaril) 50 mg QHS PO Last administered on 09/30/16 20:10; Start 09/27/16 at 21:00; Stop 10/01/16 at 16:01; Status DC Clozapine (Clozaril) 75 mg QHS PO ; Start 10/01/16 at 21:00; Stop 10/08/16 at 20 :59 Fluoxetine HCl (PROzac) 30 mg DAILY PO Last administered on 10/01/16 09:08; Start 09/23/16 at 09:00; Stop 10/23/16 at 08:59 Fluphenazine HCl (Prolixin) 5 mg QAM PO Last administered on 09/25/16 09:42; Start 09/25/16 at 09:00; Stop 09/25/16 at 12:00; Status DC Fluphenazine HCl (Prolixin) 10 mg QAM PO Last administered on 09/24/16 09:08; Start 09/23/16 at 09:00; Stop 09/24/16 at 18:39; Status DC Home Med (Med Rec Complete!) ASDIRECTED XX ; Start 09/23/16 at 01:45; Stop at 01:48; Status DC Hydroxyzine HCl (Atarax) 25 mg BID PO Last administered on 09/30/16 09:26; Start 09/23/16 at 09:00; Stop 09/30/16 at 18:14; Status DC Hydroxyzine HCl (Atarax) 25 mg BID PRN PO anxiety; Start 09/30/16 at 18:15; Stop 10/30/16 at 18:14 Magnesium Hydroxide (Milk Of Magnesia) 30 ml DAILYPRN PRN PO CONSTIPATION; Start 09/23/16 at 01:30; Stop 10/23/16 at 01:29 Nicotine (Nicoderm Cq 14mg) 1 patch DAILY TD Last administered on 10/01/16 09: 08; Start 09/23/16 at 09:00; Stop 10/23/16 at 08:59 Nitrofurantoin Monoh/Nitrofur Macro (Macrobid) 100 mg BID PO Last administered on 10/01/16 09:08; Start 09/24/16 at 09:00; Stop 10/07/16 at 08:59 Trazodone HCl (Desyrel) 50 mg QHS PO Last administered on 09/23/16 20:21; Start 09/23/16 at 00:00; Stop 09/24/16 at 18:39; Status DC Trazodone HCl (Desyrel) 50 mg QHS PRN PO INSOMNIA Last administered on 20:10; Start 09/24/16 at 18:45; Stop 10/24/16 at 18:44 Venlafaxine HCl (Effexor Xr) 37.5 mg DAILY PO Last administered on 09:27; Start 09/26/16 at 09:00; Stop 09/26/16 at 12:00; Status DC Venlafaxine HCl (Effexor Xr) 75 mg DAILY PO Last administered on 09/25/16 08:31; Start 09/25/16 at 09:00; Stop 09/25/16 at 14:31; Status DC Venlafaxine HCl (Effexor Xr) 150 mg DAILY PO Last administered on 09/24/16 09:07; Start 09/23/16 at 09:00; Stop 09/24/16 at 18:39; Status DC Allergies Coded Allergies: Ibuprofen (Verified Allergy, Mild, ITCHING, 09/22/16) Amira Hernandez October 01, 2016 18:12
[2016-10-01] MEDS: traZODone 50 MG TAB PO PRN (21:00)
[2016-10-01] MEDS: cloZAPine 25 MG TAB (S0136) PO SCH (21:01)
[2016-10-02 06:12] VITALS: BP_SYST 134; BP_SYST 155; BP_SYST 158; BP_DIAS 75; BP_DIAS 88; BP_DIAS 98
[2016-10-02] MEDS: FLUoxetine 10 MG CAP PO SCH (08:39)
[2016-10-02] MEDS: BENZTROPINE 1 MG TAB PO SCH (08:39)
[2016-10-02] MEDS: NITROFURANTOIN (MACROBID) 100 MG CAP PO SCH ×2 (08:40→20:48)
[2016-10-02] MEDS: NICOTINE 14 MG/24 HR TRANSDERMAL TD SCH (08:41)
--- NOTE | 2016-10-02 08:54 | MHIPNPDOC ---
[facility] Progress Note Progress Note DATE OF SERVICE: 10/02/16 HISTORY: Patient is a 66-year-old male who was discharged from [facility] months ago and was transferred from [facility] to [facility] complaining of increased auditory hallucinations over the course of the last several weeks, reported at intake that audiovisual hallucinations are self derogatory and were commanding him to kill himself. Patient noted he has been struggling with paranoia and auditory hallucinations, and severe depression since February 2015, had been living in [facility]. Patient was was observed to be more active today , when encouraged its out of bed and attends groups, however, continues to require prompting to get up out of bed and participate in unit programming. Patient denies symptoms of auditory hallucinations, indicates he last experienced them last night, notes AH did not involve command to harm self, describes sensory experience as "mumbling," indicates age were less frequent and less intense. Patient states he feels Clozaril is helping to reduce symptoms of psychosis. Patient denies current suicidal or homicidal ideation, reports anxiety level of 0/10, depression 3/10, denies urge to engage in self- injurious behavior. Patient denies medication side effects and continues to agree to alert staff if symptoms of AH return and are unmanageable. Patient denies symptoms of paranoia, irritability, agitation, impulsivity and states he feels his mood is level. Patient again today reports improvement in energy level , notes improvement to concentration and focus, states appetite is stable and he is sleeping well, denies nightmares symptoms. Patient has not been taking hydroxyzine, denies need for medication at this time. Patient denies symptoms of physical pain, denies medication side effects including previously reported "shakiness" to legs, is again strongly encouraged to be up out of bed and participate in unit activities. Patient has been instructed to keep self hydrated, denies symptoms of physical pain, and presents with no signs of acute distress at time of interaction. Addendum: Recommended ongoing monitoring of orthostatics. Recommendation was also made to the patient to utilize TEDS, patient continues to decline and agrees to be more active and up and out of bed, and attend groups, has been educated on risks associated with prolonged sedentary behavior. Nursing has been instructed to continue to encourage patient to be up out of bed and to utilize TEDS. VITAL SIGNS: See below. Patient remains asymptomatic. PA has evaluated and will continue to monitor, ordered orthostatic vital signs and repeat EKG, patient has been instructed to keep self hydrated and has been educated on fall precautions, TEDS have been ordered and patient has been encouraged to utilize, is currently declining. NEW TEST RESULTS: CBC repeated 10/01/16, refer to EMR. Patient remains afebrile/ no leukocytosis. 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 Left TKA, right rotator cuff repair, varicose veins BL lower extremities 01/25/[address] completed - negative noncontrast head CT 03/07/15 brain MRI with the following findings: Chronic small vessel white matter ischemic change with scattered punctuated and confluent periventricular, subcortical and deep centrum semiovale foci bilaterally on T2 and FLAIR images. No ventriculomegaly, mass, hemorrhage or acute infarct. Brainstem, cerebellum and posterior foci intact and the 7/8 cranial nerve complexes and mastoids are clear. The ethmoids and frontal sinuses with minor mucosal thickening. Otherwise negative. Labs completed by [facility] prior to transfer indicated elevated chloride, BUN, glucose and bacteria and urine. PA is aware of bacteria in urine and is treating. UDS negative on admission 10/29/15 EKG sinus rhythm possible right ventricular conduction delay increased rate 07/08/15. 09/[address] [facility] sinus rhythm 09/28/16 follow-up EKG ordered by PA - Wandering atrial rhythm, short ME interval , mild bradycardia. ABNORMAL RHYTHM ECG. Patient is currently asymptomatic, attempts made to reach hospitalist X 3 date of entry to request consult to evaluate EKG results in light of history of hypotension, orthostasis, abnormal rhythm, and patient on psychotropic medications. CURRENT MEDICATIONS: See below. MENTAL STATUS EXAMINATION: Patient is a 66-year old male, who is cooperative and more engageable today, remains withdrawn and but is less isolative to room with encouragement, readily sits up to meet with auto service writer and will get up and ambulate with prompting, will attend groups, makes improved eye contact, has showered and appears less disheveled, dressed in hospital clothing, ambulates with steady gait, appears stated age Speech: Is of normal volume, coherent, less delay, less impoverished, more verbally engageable Language skills: Within normal limits Thought processes including: Less disorganized, more goal-directed Thought content: Logical, rational, no tangentiality or paranoia noted Abstract reasoning and computation: Limited, some improvement Description of associations: Intact Description of abnormal or psychotic thoughts: Denies current suicidal and homicidal ideation, denies current auditory or visual hallucinations, does not appear to be responding to internal stimuli does not endorse bizarre or paranoid ideation, denies preoccupation with violence or obsession Judgment: Limited Insight: Limited Orientation: A and O 3 Recent and remote memory: Appears intact Attention span and concentration: Limited but shows signs of improvement Language: Limited but shows signs of improvement Fund of knowledge: Appears within normal limits Mood: "Ah, better today." Patient appears less depressed and less anxious today , no mood lability noted Affect: Remains blunted but is more animated today, brightens at times, congruent with mood DIAGNOSES: Unspecified psychotic disorder, rule out schizoaffective disorder, rule out schizophrenia, rule out major depressive disorder with psychotic features. Alcohol use disorder, severe, in sustained remission ASSESSMENT: Patient is 66-year-old male who was recently discharged from [facility], is less isolative to room, more engageable today and will ambulate and attend groups with prompting, remains pleasant and cooperative, presents with no behavior management challenges. Patient denies suicidal and homicidal ideation and verbalizes awareness of how to access supportive services on the unit if needed, agrees to alert staff if symptoms of command auditory hallucinations return/become unmanageable. Patient continues to report reduction in symptoms of psychosis since initiation of Clozaril, is aware of potential side effects and need for ongoing lab work, is agreeable to continuing with med trial in effort to further address symptoms of psychosis. Patient denies medication side effects, including EPS, indicates Prozac remains helpful in addressing symptoms of depression, has not needed to utilize hydroxyzine since order was changed to PRN, will discontinue hydroxyzine until EKG consult has been completed. Patient denies sleep related challenges, will also discontinue trazodone until EKG consult has been completed. Patient has been encouraged to be active on unit and participate in unit programming. Will continue to monitor patient's response to medication and for side effects. Will also continue to evaluate patient safety, resolution of command suicidal ideation auditory hallucinations , and discharge readiness. Patient states when prepared for discharge he plans to return to [facility] housing in [place] and resume outpatient psychiatric services through [facility]. Per fulfillment coordinator, patient may return to [facility] apartment, has supportive sister, and is connected with [facility], and [facility]. patient scheduling coordinator has arranged for meeting with [facility] on Friday with tentative discharge plan for patient on Friday. MANAGEMENT PLAN: Continue Clozaril 75 mg po q hs with plans to titrate as tolerated by patient, Cogentin 1 mg po q am, and Prozac 30 mg po q am. Discontinue hydroxyzine 25 mg to BID PRN and trazodone 50 mg po hs PRN insomnia. Hospitalist consult requested regarding EKG results Repeat CBC with differential ordered for 10/04/16 Encourage patient to be up out of bed, attend groups, hydrate, utilize TEDS Fall risk precautions Orthostatics ordered QID Maintain safety precautions Patient to attend groups and participate in unit programming to develop coping strategies Engage patient in discharge planning process and arrange meeting with support system to ensure safe discharge planning when appropriate Patient to follow up with PCM within 5-7 days of discharge TIME SPENT: 35 minutes Vital Signs Vital Signs Date Time Temp Pulse Resp B/P (MAP) Pulse Ox O2 Delivery O2 Flow Rate FiO2 10/02/16 06:12 61 155/88 (110) 86 158/98 (118) 97 134/75 (94) 10/01/16 18:10 98.2 18 09/30/16 06:18 Room Air Current Medications Current Medications Acetaminophen (Tylenol Tab) 650 mg Q6HP PRN PO HEADACHE or DISCOMFORT; Start at 01:30; Stop 10/23/16 at 01:29 Al Hydrox/Mg Hydrox/Simethicone (Mylanta) 30 ml Q4HP PRN PO HEARTBURN/ INDIGESTION; Start 09/23/16 at 01:30; Stop 10/23/16 at 01:29 Asenapine (Saphris) 5 mg QHS SL Last administered on 09/23/16 20:21; Start 09/23 at 21:00; Stop 09/24/16 at 18:39; Status DC Benztropine Mesylate (Cogentin) 1 mg QAM PO Last administered on 10/02/16 08: 39; Start 09/27/16 at 09:00; Stop 10/27/16 at 08:59 Benztropine Mesylate (Cogentin) 2 mg DAILY PO Last administered on 09/26/16 09 :27; Start 09/23/16 at 09:00; Stop 09/26/16 at 15:08; Status DC Clozapine (Clozaril) 25 mg QHS PO Last administered on 09/26/16 21:56; Start 09/24/16 at 21:00; Stop 09/27/16 at 13:01; Status DC Clozapine (Clozaril) 50 mg QHS PO Last administered on 09/30/16 20:10; Start 09/27/16 at 21:00; Stop 10/01/16 at 16:01; Status DC Clozapine (Clozaril) 75 mg QHS PO Last administered on 10/01/16 21:01; Start 10/01/16 at 21:00; Stop 10/08/16 at 20:59 Fluoxetine HCl (PROzac) 30 mg DAILY PO Last administered on 10/02/16 08:39; Start 09/23/16 at 09:00; Stop 10/23/16 at 08:59 Fluphenazine HCl (Prolixin) 5 mg QAM PO Last administered on 09/25/16 09:42; Start 09/25/16 at 09:00; Stop 09/25/16 at 12:00; Status DC Fluphenazine HCl (Prolixin) 10 mg QAM PO Last administered on 09/24/16 09:08; Start 09/23/16 at 09:00; Stop 09/24/16 at 18:39; Status DC Home Med (Med Rec Complete!) ASDIRECTED XX ; Start 09/23/16 at 01:45; Stop at 01:48; Status DC Hydroxyzine HCl (Atarax) 25 mg BID PO Last administered on 09/30/16 09:26; Start 09/23/16 at 09:00; Stop 09/30/16 at 18:14; Status DC Hydroxyzine HCl (Atarax) 25 mg BID PRN PO anxiety; Start 09/30/16 at 18:15; Stop 10/30/16 at 18:14 Magnesium Hydroxide (Milk Of Magnesia) 30 ml DAILYPRN PRN PO CONSTIPATION; Start 09/23/16 at 01:30; Stop 10/23/16 at 01:29 Nicotine (Nicoderm Cq 14mg) 1 patch DAILY TD Last administered on 10/02/16 08: 41; Start 09/23/16 at 09:00; Stop 10/23/16 at 08:59 Nitrofurantoin Monoh/Nitrofur Macro (Macrobid) 100 mg BID PO Last administered on 10/02/16 08:40; Start 09/24/16 at 09:00; Stop 10/07/16 at 08:59 Trazodone HCl (Desyrel) 50 mg QHS PO Last administered on 09/23/16 20:21; Start 09/23/16 at 00:00; Stop 09/24/16 at 18:39; Status DC Trazodone HCl (Desyrel) 50 mg QHS PRN PO INSOMNIA Last administered on 21:00; Start 09/24/16 at 18:45; Stop 10/24/16 at 18:44 Venlafaxine HCl (Effexor Xr) 37.5 mg DAILY PO Last administered on 09:27; Start 09/26/16 at 09:00; Stop 09/26/16 at 12:00; Status DC Venlafaxine HCl (Effexor Xr) 75 mg DAILY PO Last administered on 09/25/16 08:31; Start 09/25/16 at 09:00; Stop 09/25/16 at 14:31; Status DC Venlafaxine HCl (Effexor Xr) 150 mg DAILY PO Last administered on 09/24/16 09:07; Start 09/23/16 at 09:00; Stop 09/24/16 at 18:39; Status DC Allergies Coded Allergies: Ibuprofen (Verified Allergy, Mild, ITCHING, 09/22/16) Amira Hernandez October 02, 2016 08:54
[2016-10-02 12:04] VITALS: BP_SYST 100; BP_SYST 119; BP_SYST 138; BP_DIAS 61; BP_DIAS 70; BP_DIAS 81
[2016-10-02 18:03] VITALS: BP_SYST 116; BP_SYST 135; BP_SYST 140; BP_DIAS 71; BP_DIAS 75; BP_DIAS 76
[2016-10-02] MEDS: cloZAPine 25 MG TAB (S0136) PO SCH (20:48)
[2016-10-03 06:37] VITALS: BP_SYST 121; BP_SYST 144; BP_DIAS 59; BP_DIAS 86
[2016-10-03] MEDS: NICOTINE 14 MG/24 HR TRANSDERMAL TD SCH (09:21)
[2016-10-03] MEDS: BENZTROPINE 1 MG TAB PO SCH (09:23)
[2016-10-03] MEDS: NITROFURANTOIN (MACROBID) 100 MG CAP PO SCH (09:23)
[2016-10-03] MEDS: FLUoxetine 10 MG CAP PO SCH (09:23)
[2016-10-03 10:35] LABS: BASO % 0.7 % (0.0-1.0); EOS # 0.4 K/mm3 (0.0-0.50); EOS % 5.8 % (0.0-3.0); LARGE UNSTAINED CELL # 0.1 K/mm3 (0.0-0.4); LARGE UNSTAINED CELL % 1.9 % (0.0-4.0); LYMPH # 1.7 K/mm3 (1.5-4.5); MEAN CORPUSCULAR HEMOGLOBIN 32.4 pg (27.0-33.0); MEAN CORPUSCULAR HGB CONC 34.6 g/dl (32.0-36.5); MEAN CORPUSCULAR VOLUME 93.6 fl (80.0-96.0); MONO # 0.5 K/mm3 (0.0-0.8); MONO % 8.5 % (0.0-5.0); NEUTROPHILS # 3.7 K/mm3 (1.8-7.7); PLATELET COUNT, AUTOMATED 199 k/mm3 (150-450); RED CELL DISTRIBUTION WIDTH 12.8 % (11.5-14.5); WHITE BLOOD COUNT 6.3 K/mm3 (4.0-10.0)
[2016-10-03 11:11] LABS: ALBUMIN 3.3 GM/DL (3.2-5.2); ALBUMIN/GLOBULIN RATIO 1.06 (1.00-1.93); ALKALINE PHOSPHATASE 100 U/L (45-117); ALT/SGPT 34 U/L (12-78); ANION GAP 7 MEQ/L (8-16); AST/SGOT 16 U/L (15-37); BILIRUBIN,TOTAL 0.8 MG/DL (0.2-1.0); BLOOD UREA NITROGEN 18 MG/DL (7-18); CALCIUM LEVEL 8.2 MG/DL (8.8-10.2); CARBON DIOXIDE LEVEL 27 MEQ/L (21-32); CHLORIDE LEVEL 108 MEQ/L (98-107); CREATININE FOR GFR 0.68 MG/DL (0.70-1.30); GLOMERULAR FILTRATION RATE > 60.0 (>49); GLUCOSE, FASTING 100 MG/DL (80-110); SODIUM LEVEL 142 MEQ/L (136-145); TOTAL PROTEIN 6.4 GM/DL (6.4-8.2)
--- NOTE | 2016-10-03 11:51 | IPNPDOC ---
Subjective Date Seen The patient was seen on 10/03/16. Subjective Chief Complaint/HPI The patient is a 66-year-old male admitted with a reason for visit of Schizoaffective D/O. Events since last encounter This AM I am requested to re evaluate the Pt's EKG. Last EKG 09/27/16 Wandering atrial rhythm, short ND interval, mild bradycardia. The Pt states he has no CP/SOB/palpitations. EKG 09/23/16 when transferred from [facility]. Pt states occas lightheadedness with quick position changes. No presyncope/syncope. ENT: Denies: Head Aches, Dysphagia Pulmonary: Denies: Dyspnea, Cough Cardiovascular: Denies: Chest Pain, Palpitations, Orthopnea, Paroxysmal Noc. Dyspnea, Lt Headedness Gastrointestinal: Denies: Nausea, Vomiting, Abdominal Pain, Diarrhea, Constipation Genitourinary: Denies: Dysuria, Frequency, Incontinence, Retention Objective Physical Examination General Exam: Positive: Alert Eye Exam: Positive: PERRLA Chest Exam: Positive: Clear to auscultation Heart Exam: Positive: Rate Normal, Regular Rhythm, Normal S1, Normal S2, Negative: Murmurs, Rubs Skin Exam: Positive: Nl turgor and temperature Assessment /Plan Problems (1) Orthostatic hypotension Status: Chronic Problem Text: * Pt with h/o orthostatic hypotension. * Orthostatic VS requested. * Pt noted with BP 140s lying/sitting. 120 systolic standing. Asymptomatic at this time. * Discussed with Adalid Hernandez BUILDING CERTIFIER. * Pt aware to change position slowly, report any change in symptom status, drink plenty of fluids. * TEDS declined per pt. * Update labs. CBC/CMP. * Pt is noted to be taking Clozaril. Caution with this medication with h/o hypotension. Caution for QT prolongation. Caution for arrythmia or bradycardia. * Pt is taking Cogentin. Caution for dizziness. * Pt is taking Prozac. Caution for QT prolongation, bradycardia. * Trazodone discontinued 10/01/16 * Effexor discontinued 09/26/16. * HR trends noted 70s-90s. * Update EKG today as meds can also contribute to QT prolongation. EKG in AM as well. * Update CBC/CMP. (2) Abnormal EKG Problem Text: * 6/12/16 SINUS RHYTHM 62 bpm POSSIBLE RIGHT VENTRICULAR CONDUCTION DELAY INCREASED RATE 07/08/15 * 09/23/16 when transferred from [facility]. [facility]. * 09/27/16 HR 58bpm. Wandering atrial rhythm, short ND interval, mild bradycardia. * Repeat EKG pending. EKG in AM as well. * Discussed with Dr Ocampo, await EKG today. Also recheck in AM. (3) UTI (urinary tract infection) Status: Acute Problem Text: * UC result from [facility] noted to E faecalis >100,000. * Sensitivities reviewed. * Completed Nitrofurantoin 100mg po BID * Scr noted to be WNL as per labs from [facility]. * Afebrile/no leukocytosis. * UC 09/27/16 neg. * Update CBC/CMP. * Monitor. Plan/VTE VTE Prophylaxis Ordered?: No (ambulatory) VS, I&O, 24H, Fishbone Vital Signs/I&O Vital Signs Date Time Temp Pulse Resp B/P (MAP) Pulse Ox O2 Delivery O2 Flow Rate FiO2 10/03/16 06:37 144/86 (105) 121/59 (79) 144/86 (105) 10/02/16 18:03 75 90 96 10/02/16 18:02 98.4 16 09/30/16 06:18 Room Air Laboratory Data 24H LABS Laboratory Tests 2 10/03/16 09:59: White Blood Count 6.3, Red Blood Count 4.24L, Hemoglobin 13.7L, Hematocrit 39.7L , Mean Corpuscular Volume 93.6, Mean Corpuscular Hemoglobin 32.4, Mean Corpuscular Hemoglobin Concent 34.6, Red Cell Distribution Width 12.8, Platelet Count 199, Neutrophils (%) (Auto) 58.0, Lymphocytes (%) (Auto) 25.0, Monocytes ( %) (Auto) 8.5H, Eosinophils (%) (Auto) 5.8H, Basophils (%) (Auto) 0.7, Neutrophils # (Auto) 3.7, Lymphocytes # (Auto) 1.7, Monocytes # (Auto) 0.5, Eosinophils # (Auto) 0.4, Basophils # (Auto) 0.0, Large Unclassified Cells % 1.9 , Large Unclassified Cells # 0.1, Anion Gap 7L, Glomerular Filtration Rate > 60.0, Blood Urea Nitrogen 18, Creatinine 0.68L, Sodium Level 142, Potassium Level 4.0, Chloride Level 108H, Carbon Dioxide Level 27, Calcium Level 8.2L, Aspartate Amino Transf (AST/SGOT) 16, Alanine Aminotransferase (ALT/SGPT) 34, Alkaline Phosphatase 100, Total Bilirubin 0.8, Total Protein 6.4, Albumin 3.3, Albumin/Globulin Ratio 1.06 CBC/BMP Laboratory Tests 10/03/16 09:59 Red Blood Count 4.24 L, Mean Corpuscular Volume 93.6, Mean Corpuscular Hemoglobin 32.4, Mean Corpuscular Hemoglobin Concent 34.6, Red Cell Distribution Width 12.8, Neutrophils (%) (Auto) 58.0, Lymphocytes (%) (Auto) 25.0, Monocytes (%) (Auto) 8.5 H, Eosinophils (%) (Auto) 5.8 H, Basophils (%) ( Auto) 0.7, Neutrophils # (Auto) 3.7, Lymphocytes # (Auto) 1.7, Monocytes # (Auto ) 0.5, Eosinophils # (Auto) 0.4, Basophils # (Auto) 0.0, Calcium Level 8.2 L, Aspartate Amino Transf (AST/SGOT) 16, Alanine Aminotransferase (ALT/SGPT) 34, Alkaline Phosphatase 100, Total Bilirubin 0.8, Total Protein 6.4, Albumin 3.3 Microbiology Microbiology 09/27/16 Urine Culture - Final, Complete Nora Fountain October 03, 2016 11:51
[2016-10-03 12:00] VITALS: BP_SYST 113; BP_SYST 138; BP_SYST 143; BP_DIAS 76; BP_DIAS 82; BP_DIAS 88
--- NOTE | 2016-10-03 16:55 | ECGEPIP ---
Stationary ECG Study [facility] Test Date: 2016-10-03 Pat Name: LINDSAY CISNEROS Department: Room: [place] [address] Gender: M Flame Planer: : 1950 Requested By: Nora Fountain Order Number: [id number] Reading MD: Lourdes Mtz Measurements Intervals [place] Rate: 65 P: 51 MD: 138 QRS: 45 QRSD: 96 T: 50 QT: 433 QTc: 452 Interpretive Statements WANDERING ATRIAL RHYTHM RATE FASTER C/W 09/27/16 bORDERLINE VOLTAGE Electronically Signed On 10-03-2016 16:55:40 EDT by Lourdes Mtz
--- NOTE | 2016-10-03 17:53 | MHIPNPDOC ---
[facility] Progress Note Progress Note DATE OF SERVICE: 10/03/16 HISTORY: Patient is a 66-year-old male who was discharged from [facility] 3 months ago and was transferred from [facility] to [facility] complaining of increased auditory hallucinations over the course of the last several weeks, reported at intake that audiovisual hallucinations are self derogatory and were commanding him to kill himself. Patient noted he has been struggling with paranoia and auditory hallucinations, and severe depression since February 2015, had been living in [facility] housing. Patient was was observed to be more active today , continues to get up and walk always and participate in groups when encouraged , however, continues to require prompting to be visible on unit. Patient denies suicidal and homicidal ideation, denies auditory and visual hallucinations, notes last experience last night with command but is unable to provide information on what voices were saying, indicates symptoms are manageable and denies having plan or intent to harm self or others. Patient reports improvement to symptoms of anxiety and depression and informs lyric writer he slept "fine" last night sans hydroxyzine and trazodone. Patient denies medication side effects and continues to agree to alert staff if symptoms of AH return/ become unmanageable. Patient denies symptoms of paranoia, irritability, agitation, impulsivity and states he feels his mood is level. Patient again today reports improvement in energy level, notes improvement to concentration and focus, states appetite is stable, denies nightmares symptoms. Patient denies symptoms of physical pain, denies medication side effects including previously reported "shakiness" to legs, is again strongly encouraged to be up out of bed and participate in unit activities. Patient has been instructed to keep self hydrated, denies symptoms of physical pain, and presents with no signs of acute distress at time of interaction. Consult requested date of entry to evaluate patient's recent EKG results. Addendum: Recommended ongoing monitoring of orthostatics. Recommendation was also made to the patient to utilize TEDS, patient continues to decline and agrees to be more active and up and out of bed, and attend groups, has been educated on risks associated with prolonged sedentary behavior. Nursing has been instructed to continue to encourage patient to be up out of bed and to utilize TEDS. VITAL SIGNS: See below. Patient remains asymptomatic. PA is evaluating and we' ll continue to monitor, ordered orthostatic vital signs and repeat EKG, patient has been instructed to keep self hydrated and has been educated on fall precautions, TEDS have been ordered and patient has been encouraged to utilize, is currently declining. NEW TEST RESULTS: CBC repeated 10/03/16, WBC's 6.3, refer to EMR for details. 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 Left TKA, right rotator cuff repair, varicose veins BL lower extremities 01/25/[address] completed - negative noncontrast head CT 03/07/15 brain MRI with the following findings: Chronic small vessel white matter ischemic change with scattered punctuated and confluent periventricular, subcortical and deep centrum semiovale foci bilaterally on T2 and FLAIR images. No ventriculomegaly, mass, hemorrhage or acute infarct. Brainstem, cerebellum and posterior foci intact and the 7/8 cranial nerve complexes and mastoids are clear. The ethmoids and frontal sinuses with minor mucosal thickening. Otherwise negative. Labs completed by [facility] prior to transfer indicated elevated chloride, BUN, glucose and bacteria and urine. PA is aware of bacteria in urine and is treating. UDS negative on admission 10/29/15 EKG sinus rhythm possible right ventricular conduction delay increased rate 07/08/15. 09/2016 EKG from [facility] sinus rhythm 09/28/16 follow-up EKG ordered by PA - Wandering atrial rhythm, short LA interval , mild bradycardia. ABNORMAL RHYTHM ECG. PA has ordered lab work and repeat EKG , is monitoring. Patient is asymptomatic and denies symptoms of chest pain, dizziness, shortness of breath, headache, and palpitations. CURRENT MEDICATIONS: See below. MENTAL STATUS EXAMINATION: Patient is a 66-year old male, who is cooperative and more engageable today, remains withdrawn but is less isolative to room, with encouragement readily gets up and walks hallways and attends groups. Patient makes improved eye contact, has showered and appears less disheveled, dressed in hospital clothing , ambulates with steady gait, appears stated age Speech: Is of normal volume, coherent, less delay, less impoverished, more verbally engageable Language skills: Within normal limits Thought processes including: Logical, rational, goal-directed Thought content: Logical, rational, no tangentiality or paranoia noted Abstract reasoning and computation: Limited, some improvement Description of associations: Intact Description of abnormal or psychotic thoughts: Denies current suicidal and homicidal ideation, denies current auditory or visual hallucinations, does not appear to be responding to internal stimuli does not endorse bizarre or paranoid ideation, denies preoccupation with violence or obsession Judgment: Limited, some improvement noted Insight: Limited, some improvement noted Orientation: A and O 3 Recent and remote memory: Appears intact Attention span and concentration: Limited but shows signs of improvement Language: Limited but shows signs of improvement Fund of knowledge: Appears within normal limits Mood: "Better every day." Patient appears less depressed and less anxious today , no mood lability noted Affect: Remains blunted but is more animated today, brightens at times, congruent with mood DIAGNOSES: Schizoaffective disorder, rule out schizophrenia, rule out major depressive disorder with psychotic features. Alcohol use disorder, severe, in sustained remission ASSESSMENT: Patient is 66-year-old male who was recently discharged from [facility], is less isolative to room, more engageable today and will ambulate and attend groups with prompting, remains pleasant and cooperative, presents with no behavior management challenges. Patient denies suicidal and homicidal ideation and verbalizes awareness of how to access supportive services on the unit if needed, agrees to alert staff if symptoms of command auditory hallucinations return/become unmanageable. Patient continues to report reduction in symptoms of psychosis since initiation of Clozaril, is aware of potential side effects and need for ongoing lab work, is agreeable to continuing with med trial in effort to further address symptoms of psychosis. Patient denies medication side effects, including EPS, indicates Prozac remains helpful in addressing symptoms of depression, indicates has been sleeping adequately without hydroxyzine or trazodone. Patient is aware consultation has been requested regarding recent EKG. Patient has been encouraged to be active on unit and participate in unit programming. Will continue to monitor patient's response to medication and for side effects. Will also continue to evaluate patient safety, resolution of command suicidal ideation auditory hallucinations, and discharge readiness. Patient states when prepared for discharge he plans to return to [facility] in [place] and resume outpatient psychiatric services through [facility]. Per blood bank coordinator, patient may return to [facility] apartment, has supportive sister, and is connected with [facility], and [facility]. tour coordinator has arranged for meeting with [facility] on Friday with tentative discharge plan for patient on Friday. MANAGEMENT PLAN: Continue Clozaril 75 mg po q hs with plans to titrate as tolerated by patient, Cogentin 1 mg po q am, and Prozac 30 mg po q am. Consult requested regarding EKG results Repeat CBC with differential ordered for 10/06/16 Encourage patient to be up out of bed, attend groups, hydrate, utilize TEDS Fall risk precautions Orthostatics ordered QID Maintain safety precautions Patient to attend groups and participate in unit programming to develop coping strategies Engage patient in discharge planning process and arrange meeting with support system to ensure safe discharge planning when appropriate Patient to follow up with [facility]M within 5-7 days of discharge TIME SPENT: 35 minutes Vital Signs Vital Signs Date Time Temp Pulse Resp B/P (MAP) Pulse Ox O2 Delivery O2 Flow Rate FiO2 10/03/16 12:00 77 138/88 (105) 97 113/76 (88) 67 143/82 (102) 10/02/16 18:02 98.4 16 09/30/16 06:18 Room Air Laboratory Data 24H Labs Laboratory Tests 2 10/03/16 09:59: White Blood Count 6.3, Red Blood Count 4.24L, Hemoglobin 13.7L, Hematocrit 39.7L , Mean Corpuscular Volume 93.6, Mean Corpuscular Hemoglobin 32.4, Mean Corpuscular Hemoglobin Concent 34.6, Red Cell Distribution Width 12.8, Platelet Count 199, Neutrophils (%) (Auto) 58.0, Lymphocytes (%) (Auto) 25.0, Monocytes ( %) (Auto) 8.5H, Eosinophils (%) (Auto) 5.8H, Basophils (%) (Auto) 0.7, Neutrophils # (Auto) 3.7, Lymphocytes # (Auto) 1.7, Monocytes # (Auto) 0.5, Eosinophils # (Auto) 0.4, Basophils # (Auto) 0.0, Large Unclassified Cells % 1.9 , Large Unclassified Cells # 0.1, Anion Gap 7L, Glomerular Filtration Rate > 60.0, Blood Urea Nitrogen 18, Creatinine 0.68L, Sodium Level 142, Potassium Level 4.0, Chloride Level 108H, Carbon Dioxide Level 27, Calcium Level 8.2L, Aspartate Amino Transf (AST/SGOT) 16, Alanine Aminotransferase (ALT/SGPT) 34, Alkaline Phosphatase 100, Total Bilirubin 0.8, Total Protein 6.4, Albumin 3.3, Albumin/Globulin Ratio 1.06 CBC/BMP Laboratory Tests 10/03/16 09:59 Red Blood Count 4.24 L, Mean Corpuscular Volume 93.6, Mean Corpuscular Hemoglobin 32.4, Mean Corpuscular Hemoglobin Concent 34.6, Red Cell Distribution Width 12.8, Neutrophils (%) (Auto) 58.0, Lymphocytes (%) (Auto) 25.0, Monocytes (%) (Auto) 8.5 H, Eosinophils (%) (Auto) 5.8 H, Basophils (%) ( Auto) 0.7, Neutrophils # (Auto) 3.7, Lymphocytes # (Auto) 1.7, Monocytes # (Auto ) 0.5, Eosinophils # (Auto) 0.4, Basophils # (Auto) 0.0, Calcium Level 8.2 L, Aspartate Amino Transf (AST/SGOT) 16, Alanine Aminotransferase (ALT/SGPT) 34, Alkaline Phosphatase 100, Total Bilirubin 0.8, Total Protein 6.4, Albumin 3.3 Current Medications Current Medications Acetaminophen (Tylenol Tab) 650 mg Q6HP PRN PO HEADACHE or DISCOMFORT; Start at 01:30; Stop 10/23/16 at 01:29 Al Hydrox/Mg Hydrox/Simethicone (Mylanta) 30 ml Q4HP PRN PO HEARTBURN/ INDIGESTION; Start 09/23/16 at 01:30; Stop 10/23/16 at 01:29 Asenapine (Saphris) 5 mg QHS SL Last administered on 09/23/16 20:21; Start 09/23 at 21:00; Stop 09/24/16 at 18:39; Status DC Benztropine Mesylate (Cogentin) 1 mg QAM PO Last administered on 10/03/16 09: 23; Start 09/27/16 at 09:00; Stop 10/27/16 at 08:59 Benztropine Mesylate (Cogentin) 2 mg DAILY PO Last administered on 09/26/16 09 :27; Start 09/23/16 at 09:00; Stop 09/26/16 at 15:08; Status DC Clozapine (Clozaril) 25 mg QHS PO Last administered on 09/26/16 21:56; Start 09/24/16 at 21:00; Stop 09/27/16 at 13:01; Status DC Clozapine (Clozaril) 50 mg QHS PO Last administered on 09/30/16 20:10; Start 09/27/16 at 21:00; Stop 10/01/16 at 16:01; Status DC Clozapine (Clozaril) 75 mg QHS PO Last administered on 10/02/16 20:48; Start 10/01/16 at 21:00; Stop 10/08/16 at 20:59 Fluoxetine HCl (PROzac) 30 mg DAILY PO Last administered on 10/03/16 09:23; Start 09/23/16 at 09:00; Stop 10/23/16 at 08:59 Fluphenazine HCl (Prolixin) 5 mg QAM PO Last administered on 09/25/16 09:42; Start 09/25/16 at 09:00; Stop 09/25/16 at 12:00; Status DC Fluphenazine HCl (Prolixin) 10 mg QAM PO Last administered on 09/24/16 09:08; Start 09/23/16 at 09:00; Stop 09/24/16 at 18:39; Status DC Home Med (Med Rec Complete!) ASDIRECTED XX ; Start 09/23/16 at 01:45; Stop at 01:48; Status DC Hydroxyzine HCl (Atarax) 25 mg BID PO Last administered on 09/30/16 09:26; Start 09/23/16 at 09:00; Stop 09/30/16 at 18:14; Status DC Hydroxyzine HCl (Atarax) 25 mg BID PRN PO anxiety; Start 09/30/16 at 18:15; Stop 10/30/16 at 18:14; Status Cancel Magnesium Hydroxide (Milk Of Magnesia) 30 ml DAILYPRN PRN PO CONSTIPATION; Start 09/23/16 at 01:30; Stop 10/23/16 at 01:29 Nicotine (Nicoderm Cq 14mg) 1 patch DAILY TD Last administered on 10/03/16 09: 21; Start 09/23/16 at 09:00; Stop 10/23/16 at 08:59 Nitrofurantoin Monoh/Nitrofur Macro (Macrobid) 100 mg BID PO Last administered on 10/03/16 09:23; Start 09/24/16 at 09:00; Stop 10/03/16 at 09:33; Status DC Trazodone HCl (Desyrel) 50 mg QHS PO Last administered on 09/23/16 20:21; Start 09/23/16 at 00:00; Stop 09/24/16 at 18:39; Status DC Trazodone HCl (Desyrel) 50 mg QHS PRN PO INSOMNIA Last administered on 21:00; Start 09/24/16 at 18:45; Stop 10/02/16 at 17:02; Status DC Venlafaxine HCl (Effexor Xr) 37.5 mg DAILY PO Last administered on 09:27; Start 09/26/16 at 09:00; Stop 09/26/16 at 12:00; Status DC Venlafaxine HCl (Effexor Xr) 75 mg DAILY PO Last administered on 09/25/16 08:31; Start 09/25/16 at 09:00; Stop 09/25/16 at 14:31; Status DC Venlafaxine HCl (Effexor Xr) 150 mg DAILY PO Last administered on 09/24/16 09:07; Start 09/23/16 at 09:00; Stop 09/24/16 at 18:39; Status DC Allergies Coded Allergies: Ibuprofen (Verified Allergy, Mild, ITCHING, 09/22/16) Amira Hernandez October 03, 2016 17:53
[2016-10-03 18:00] VITALS: BP_SYST 116; BP_SYST 138; BP_SYST 141; BP_DIAS 68; BP_DIAS 76; BP_DIAS 81
[2016-10-03] MEDS: cloZAPine 25 MG TAB (S0136) PO SCH (21:43)
[2016-10-04 06:22] VITALS: BP_SYST 126; BP_SYST 145; BP_SYST 154; BP_DIAS 87; BP_DIAS 88; BP_DIAS 92
[2016-10-04 06:24] VITALS: BP 154/87
[2016-10-04] MEDS: FLUoxetine 10 MG CAP PO SCH (08:36)
[2016-10-04] MEDS: BENZTROPINE 1 MG TAB PO SCH (08:36)
[2016-10-04] MEDS: NICOTINE 14 MG/24 HR TRANSDERMAL TD SCH (08:36)
[2016-10-04 12:08] VITALS: BP_SYST 117; BP_SYST 132; BP_SYST 142; BP_DIAS 69; BP_DIAS 79; BP_DIAS 82
--- NOTE | 2016-10-04 13:33 | MHIPNPDOC ---
[facility] Progress Note Progress Note DATE OF SERVICE: 10/04/16 HISTORY: Patient is a 66-year-old male who was discharged from [facility] 3 months ago and was transferred from [facility] to [facility] complaining of increased auditory hallucinations over the course of the last several weeks, reported at intake that audiovisual hallucinations are self derogatory and were commanding him to kill himself. Patient noted he has been struggling with paranoia and auditory hallucinations, and severe depression since February 2015, had been living in [facility]. Optical Instrument Inspector met with patient to assess treatment progress on inpatient unit. Patient was observed to be walking the hallways, attends groups with encouragement but continues to require prompting to be visible on unit. Patient rates current anxiety level as 4/10, depression 2/10 and attributes aforementioned symptoms to wanting to be discharged, denies suicidal and homicidal ideation, denies auditory or visual hallucinations, denies urge to engage in self-injurious behavior. Patient indicates he last experienced auditory hallucinations last night noting, "they were not too loud and not often." Patient denies Command element to AH, further denies plan/intent/urge to harm self or others. Patient describes sleep as "good," indicates appetite, concentration and focus are stable, states he feels energy level is improving. Patient continues to agree to alert staff if symptoms of AH return/become unmanageable. Patient denies symptoms of paranoia, irritability, agitation, impulsivity and states he feels his mood is level. Patient denies symptoms of physical pain, denies medication side effects including previously reported "shakiness" to legs, is again strongly encouraged to be up out of bed and participate in unit activities. Patient has been instructed to keep self hydrated, denies symptoms of physical pain, and presents with no signs of acute distress at time of interaction. Consult requested 10/03/16 to evaluate patient's recent EKG results. Addendum: Recommended ongoing monitoring of orthostatics. Recommendation was also made to the patient to utilize TEDS, patient continues to decline and agrees to be more active and up and out of bed, and attend groups, has been educated on risks associated with prolonged sedentary behavior. Nursing has been instructed to continue to encourage patient to be up out of bed and to utilize TEDS. VITAL SIGNS: See below. Patient remains asymptomatic. PA is evaluating and we' ll continue to monitor, ordered orthostatic vital signs and repeat EKG, patient has been instructed to keep self hydrated and has been educated on fall precautions, TEDS have been ordered and patient has been encouraged to utilize, continues to decline. NEW TEST RESULTS: CBC repeated 10/03/16, WBC's 6.3, refer to EMR for details. 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 Left TKA, right rotator cuff repair, varicose veins BL lower extremities 01/25/[address] completed - negative noncontrast head CT 03/07/15 brain MRI with the following findings: Chronic small vessel white matter ischemic change with scattered punctuated and confluent periventricular, subcortical and deep centrum semiovale foci bilaterally on T2 and FLAIR images. No ventriculomegaly, mass, hemorrhage or acute infarct. Brainstem, cerebellum and posterior foci intact and the 7/8 cranial nerve complexes and mastoids are clear. The ethmoids and frontal sinuses with minor mucosal thickening. Otherwise negative. Labs completed by [facility] prior to transfer indicated elevated chloride, BUN, glucose and bacteria and urine. PA is aware of bacteria in urine and is treating. UDS negative on admission 10/29/15 EKG sinus rhythm possible right ventricular conduction delay increased rate 07/08/15. 09/2016 EKG from [facility] sinus rhythm 09/28/16 follow-up EKG ordered by [facility] - Wandering atrial rhythm, short MS interval , mild bradycardia. ABNORMAL RHYTHM ECG. Consult requested. Consult requested, PA has ordered lab work and repeat EKG, is monitoring. Patient is asymptomatic and denies symptoms of chest pain, dizziness, shortness of breath, headache, and palpitations. CURRENT MEDICATIONS: See below. MENTAL STATUS EXAMINATION: Patient is a 66-year old male, who is cooperative and more engageable today, remains withdrawn but is less isolative to room, with encouragement readily gets up and walks hallways and attends groups. Patient makes improved eye contact, has showered and appears less disheveled, dressed in hospital clothing , ambulates with steady gait, appears stated age Speech: Is of normal volume, coherent, less delay, less impoverished, more verbally engageable Language skills: Within normal limits Thought processes including: Logical, rational, goal-directed Thought content: Logical, rational, no tangentiality or paranoia noted Abstract reasoning and computation: Limited, some improvement Description of associations: Intact Description of abnormal or psychotic thoughts: Denies current suicidal and homicidal ideation, denies current auditory or visual hallucinations, does not appear to be responding to internal stimuli does not endorse bizarre or paranoid ideation, denies preoccupation with violence or obsession Judgment: Limited, some improvement noted Insight: Limited, some improvement noted Orientation: A and O 3 Recent and remote memory: Appears intact Attention span and concentration: Limited, continues to show signs of improvement Language: Limited but shows signs of improvement Fund of knowledge: Appears within normal limits Mood: "The voices are less today." Patient appears less depressed, no anxiety noted, no mood lability noted Affect: Remains blunted but is more animated today, brightens at times, congruent with mood DIAGNOSES: Schizoaffective disorder, rule out schizophrenia, rule out major depressive disorder with psychotic features. Alcohol use disorder, severe, in sustained remission ASSESSMENT: Patient is 66-year-old male who was recently discharged from [facility], is less isolative to room, more engageable today and will ambulate and attend groups with prompting, remains pleasant and cooperative, presents with no behavior management challenges. Patient denies suicidal and homicidal ideation and verbalizes awareness of how to access supportive services on the unit if needed, agrees to alert staff if symptoms of command auditory hallucinations return/become unmanageable. Patient reports improvement to symptoms with recent dose increase of Clozaril, is aware of potential side effects and need for ongoing lab work. Patient denies medication side effects, including EPS, indicates Prozac remains helpful in addressing symptoms of depression, indicates has been sleeping adequately without hydroxyzine or trazodone. Patient is aware consultation has been requested regarding recent EKG. Patient has been encouraged to be visible on unit and participate in unit programming. Will continue to monitor patient's response to medication and for side effects. Will also continue to evaluate patient safety, resolution of command suicidal ideation auditory hallucinations, and discharge readiness. Patient states when prepared for discharge he plans to return to [facility] housing in [place] and resume outpatient psychiatric services through [facility]. Per student life coordinator, patient may return to [facility] apartment, has supportive sister, and is connected with [facility], and [facility]. esthetician/spa coordinator has arranged for meeting with [facility] on Friday with tentative discharge plan for patient on Friday, patient indicates he is in agreement with discharge plan. MANAGEMENT PLAN: Continue Clozaril 75 mg po q hs with plans to titrate as tolerated by patient, Cogentin 1 mg po q am, and Prozac 30 mg po q am. Consult requested regarding EKG results Repeat CBC with differential ordered for 10/06/16 Encourage patient to be up out of bed, attend groups, hydrate, utilize TEDS Fall risk precautions Orthostatics ordered QID Maintain safety precautions Patient to attend groups and participate in unit programming to develop coping strategies Engage patient in discharge planning process and arrange meeting with support system to ensure safe discharge planning when appropriate Patient to follow up with PCM within 5-7 days of discharge TIME SPENT: 35 minutes Vital Signs Vital Signs Date Time Temp Pulse Resp B/P (MAP) Pulse Ox O2 Delivery O2 Flow Rate FiO2 10/04/16 12:09 98.5 16 10/04/16 12:08 73 142/82 (102) 81 132/79 (96) 98 117/69 (85) 09/30/16 06:18 Room Air Current Medications Current Medications Acetaminophen (Tylenol Tab) 650 mg Q6HP PRN PO HEADACHE or DISCOMFORT; Start at 01:30; Stop 10/23/16 at 01:29 Al Hydrox/Mg Hydrox/Simethicone (Mylanta) 30 ml Q4HP PRN PO HEARTBURN/ INDIGESTION; Start 09/23/16 at 01:30; Stop 10/23/16 at 01:29 Asenapine (Saphris) 5 mg QHS SL Last administered on 09/23/16 20:21; Start 09/23 at 21:00; Stop 09/24/16 at 18:39; Status DC Benztropine Mesylate (Cogentin) 1 mg QAM PO Last administered on 10/04/16 08: 36; Start 09/27/16 at 09:00; Stop 10/27/16 at 08:59 Benztropine Mesylate (Cogentin) 2 mg DAILY PO Last administered on 09/26/16 09 :27; Start 09/23/16 at 09:00; Stop 09/26/16 at 15:08; Status DC Clozapine (Clozaril) 25 mg QHS PO Last administered on 09/26/16 21:56; Start 09/24/16 at 21:00; Stop 09/27/16 at 13:01; Status DC Clozapine (Clozaril) 50 mg QHS PO Last administered on 09/30/16 20:10; Start 09/27/16 at 21:00; Stop 10/01/16 at 16:01; Status DC Clozapine (Clozaril) 75 mg QHS PO Last administered on 10/03/16 21:43; Start 10/01/16 at 21:00; Stop 10/08/16 at 20:59 Fluoxetine HCl (PROzac) 30 mg DAILY PO Last administered on 10/04/16 08:36; Start 09/23/16 at 09:00; Stop 10/23/16 at 08:59 Fluphenazine HCl (Prolixin) 5 mg QAM PO Last administered on 09/25/16 09:42; Start 09/25/16 at 09:00; Stop 09/25/16 at 12:00; Status DC Fluphenazine HCl (Prolixin) 10 mg QAM PO Last administered on 09/24/16 09:08; Start 09/23/16 at 09:00; Stop 09/24/16 at 18:39; Status DC Home Med (Med Rec Complete!) ASDIRECTED XX ; Start 09/23/16 at 01:45; Stop at 01:48; Status DC Hydroxyzine HCl (Atarax) 25 mg BID PO Last administered on 09/30/16 09:26; Start 09/23/16 at 09:00; Stop 09/30/16 at 18:14; Status DC Hydroxyzine HCl (Atarax) 25 mg BID PRN PO anxiety; Start 09/30/16 at 18:15; Stop 10/30/16 at 18:14; Status Cancel Magnesium Hydroxide (Milk Of Magnesia) 30 ml DAILYPRN PRN PO CONSTIPATION; Start 09/23/16 at 01:30; Stop 10/23/16 at 01:29 Nicotine (Nicoderm Cq 14mg) 1 patch DAILY TD Last administered on 10/04/16 08: 36; Start 09/23/16 at 09:00; Stop 10/23/16 at 08:59 Nitrofurantoin Monoh/Nitrofur Macro (Macrobid) 100 mg BID PO Last administered on 10/03/16 09:23; Start 09/24/16 at 09:00; Stop 10/03/16 at 09:33; Status DC Trazodone HCl (Desyrel) 50 mg QHS PO Last administered on 09/23/16 20:21; Start 09/23/16 at 00:00; Stop 09/24/16 at 18:39; Status DC Trazodone HCl (Desyrel) 50 mg QHS PRN PO INSOMNIA Last administered on 21:00; Start 09/24/16 at 18:45; Stop 10/02/16 at 17:02; Status DC Venlafaxine HCl (Effexor Xr) 37.5 mg DAILY PO Last administered on 09:27; Start 09/26/16 at 09:00; Stop 09/26/16 at 12:00; Status DC Venlafaxine HCl (Effexor Xr) 75 mg DAILY PO Last administered on 09/25/16 08:31; Start 09/25/16 at 09:00; Stop 09/25/16 at 14:31; Status DC Venlafaxine HCl (Effexor Xr) 150 mg DAILY PO Last administered on 09/24/16 09:07; Start 09/23/16 at 09:00; Stop 09/24/16 at 18:39; Status DC Allergies Coded Allergies: Ibuprofen (Verified Allergy, Mild, ITCHING, 09/22/16) Amira Hernandez October 04, 2016 13:33
--- NOTE | 2016-10-04 17:18 | ECGEPIP ---
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
[2016-10-04 18:04] VITALS: BP_SYST 100; BP_SYST 115; BP_SYST 133; BP_DIAS 66; BP_DIAS 74; BP_DIAS 76
[2016-10-04] MEDS: cloZAPine 25 MG TAB (S0136) PO SCH (20:36)
[2016-10-05 06:33] VITALS: BP_SYST 111; BP_SYST 120; BP_SYST 139; BP_DIAS 71; BP_DIAS 77; BP_DIAS 80
[2016-10-05] MEDS: FLUoxetine 10 MG CAP PO SCH (08:45)
[2016-10-05] MEDS: NICOTINE 14 MG/24 HR TRANSDERMAL TD SCH (08:46)
[2016-10-05] MEDS: BENZTROPINE 1 MG TAB PO SCH (08:46)
[2016-10-05 12:02] VITALS: BP_SYST 135; BP_SYST 139; BP_SYST 143; BP_DIAS 70; BP_DIAS 81; BP_DIAS 83
[2016-10-05 18:08] VITALS: BP_SYST 130; BP_SYST 134; BP_SYST 136; BP_DIAS 77; BP_DIAS 83; BP_DIAS 84
[2016-10-05] MEDS: cloZAPine 25 MG TAB (S0136) PO SCH (20:25)
[2016-10-06 06:25] VITALS: BP_SYST 118; BP_SYST 149; BP_SYST 152; BP_DIAS 79; BP_DIAS 93; BP_DIAS 99
[2016-10-06] MEDS: BENZTROPINE 1 MG TAB PO SCH (08:39)
[2016-10-06] MEDS: FLUoxetine 10 MG CAP PO SCH (08:39)
[2016-10-06] MEDS: NICOTINE 14 MG/24 HR TRANSDERMAL TD SCH (08:39)
[2016-10-06 09:30] LABS: BASO % 0.6 % (0.0-1.0); EOS # 0.5 K/mm3 (0.0-0.50); LARGE UNSTAINED CELL # 0.1 K/mm3 (0.0-0.4); LARGE UNSTAINED CELL % 1.7 % (0.0-4.0); LYMPH # 1.8 K/mm3 (1.5-4.5); LYMPH % 25.3 % (24.0-44.0); MEAN CORPUSCULAR HEMOGLOBIN 31.5 pg (27.0-33.0); MEAN CORPUSCULAR HGB CONC 33.5 g/dl (32.0-36.5); MEAN CORPUSCULAR VOLUME 94.1 fl (80.0-96.0); MONO # 0.5 K/mm3 (0.0-0.8); MONO % 7.5 % (0.0-5.0); NEUTROPHILS % 57.8 % (36.0-66.0); PLATELET COUNT, AUTOMATED 207 k/mm3 (150-450); RED CELL DISTRIBUTION WIDTH 12.5 % (11.5-14.5)
[2016-10-06 11:29] VITALS: BP_SYST 115; BP_SYST 128; BP_SYST 141; BP_DIAS 72; BP_DIAS 78; BP_DIAS 81
[2016-10-06 18:00] VITALS: BP_SYST 130; BP_SYST 140; BP_DIAS 76; BP_DIAS 80; BP_DIAS 81
[2016-10-06] MEDS: cloZAPine 25 MG TAB (S0136) PO SCH (20:49)
[2016-10-07 06:00] VITALS: BP_SYST 122; BP_SYST 155; BP_SYST 163; BP_DIAS 58; BP_DIAS 83; BP_DIAS 84
[2016-10-07] MEDS: NICOTINE 14 MG/24 HR TRANSDERMAL TD SCH (08:45)
[2016-10-07] MEDS: FLUoxetine 10 MG CAP PO SCH (08:45)
[2016-10-07] MEDS: BENZTROPINE 1 MG TAB PO SCH (08:45)
[2016-10-07] MEDS ORDERED: CLOZ25TA3 PO (10:20)
[2016-10-07] MEDS ORDERED: BENZ1TA PO (10:20)
[2016-10-07] MEDS ORDERED: FLUO10CA9 PO (10:22)
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
== END 2016-10-07 13:55 | disposition home or self-care (01) | DRG 885 ==
LOC: EDBD 23:12 → M ED 23:45 → M ED INP 09-23 00:20 → M PSY 09-23 01:11
PROVIDERS: ADMIT Psychiatry & Neurology Psychiatry; ATTEND Psychiatry & Neurology Psychiatry
DX: F25.9 Schizoaffective disorder, unspecified (principal); N39.0 Urinary tract infection, site not specified; F33.3 Major depressive disorder, recurrent, severe with psychotic symptoms; F20.9 Schizophrenia, unspecified; Z79.899 Other long term (current) drug therapy; Z88.8 Allergy status to other drugs, medicaments and biological substances; N40.0 Benign prostatic hyperplasia without lower urinary tract symptoms; I95.9 Hypotension, unspecified

== ENCOUNTER 2017-01-13 13:50 | Inpatient (IN) | payer MEDICARE, BC ==
[~2017-01-13] VITALS: Ht 182.9 cm; Wt 90.9 kg
[~2017-01-13 13:50] MED LIST changes: +ABIL1TAB11 PO; -ABIL5TAB5 PO; +BENZ-52 PO; +BENZ2TAB5 PO; +CLOZ25TA3 PO; +FLUO10CA9 PO; +FLUP10TA PO; +FLUP25VL IM; +HYDR1CAP25 PO; -LYRI100C10 PO; +PREG100CA PO; -RISP2TAB30 PO; +RISP2TAB32 PO; +TRAZ50TA11 PO; -TRAZ50TA4 PO
[2017-01-13 14:55] LABS: MEAN CORPUSCULAR HEMOGLOBIN 32.6 pg (27.0-33.0); MEAN CORPUSCULAR HGB CONC 34.7 g/dl (32.0-36.5); MEAN CORPUSCULAR VOLUME 94.1 fl (80.0-96.0); RED CELL DISTRIBUTION WIDTH 12.8 % (11.5-14.5); WHITE BLOOD COUNT 7.3 K/mm3 (4.0-10.0)
[2017-01-13 15:06] LABS: METHADONE URINE NEGATIVE (NEGATIVE)
[2017-01-13 15:16] LABS: ALBUMIN/GLOBULIN RATIO 1.11 (1.00-1.93); ALKALINE PHOSPHATASE 103 U/L (45-117); ALT/SGPT 32 U/L (12-78); ANION GAP 12 MEQ/L (8-16); AST/SGOT 18 U/L (15-37); BILIRUBIN,DIRECT 0.2 MG/DL (0.0-0.2); BILIRUBIN,TOTAL 0.7 MG/DL (0.2-1.0); BLOOD UREA NITROGEN 11 MG/DL (7-18); CALCIUM LEVEL 9.4 MG/DL (8.8-10.2); CARBON DIOXIDE LEVEL 23 MEQ/L (21-32); CHLORIDE LEVEL 107 MEQ/L (98-107); CREATININE FOR GFR 0.88 MG/DL (0.70-1.30); GLOMERULAR FILTRATION RATE > 60.0 (>49); GLUCOSE, FASTING 90 MG/DL (80-110); POTASSIUM SERUM 4.2 MEQ/L (3.5-5.1); SODIUM LEVEL 142 MEQ/L (136-145); TOTAL PROTEIN 7.6 GM/DL (6.4-8.2)
[2017-01-13] MEDS ORDERED: INVE234I IM ×2 (15:27→16:58)
[2017-01-13] MEDS ORDERED: MOM 30ML SUSPENSION UDC PO PRN (16:30)
[2017-01-13] MEDS ORDERED: MAALOX 30 ML SUSP *UDC PO PRN (16:30)
[2017-01-13] MEDS ORDERED: traZODone 50 MG TAB PO PRN (16:30)
[2017-01-13] MEDS ORDERED: FLUO10CA9 PO (16:58)
[2017-01-13] MEDS ORDERED: VITMTA PO (16:58)
[2017-01-13] MEDS ORDERED: FLUO20CA19 PO (16:58)
[2017-01-13] MEDS ORDERED: BENZ-52 PO (16:58)
[2017-01-14 07:05] VITALS: BP 109/62
[2017-01-14] MEDS: FLUoxetine 10 MG CAP PO SCH (08:12)
[2017-01-14] MEDS: BENZTROPINE 1 MG TAB PO SCH (08:12)
[2017-01-14] MEDS ORDERED: PALIPERIDONE PALMITATE 156 MG/1ML INJ(INVEGA SUSTENNA)(J2426) IM SCH (09:00)
[2017-01-14] MEDS ORDERED: FLUoxetine 10 MG CAP PO ONE (09:00)
--- NOTE | 2017-01-14 09:50 | HPEPDOC ---
Medical History and Physical Date of Admission Jan 13, 2017 at 16:21 History and Physical PCP: Dr. Li ATTENDING: Dr. Negro Carreno HPI: 66yoM admitted to [facility] for Schizoaffective disorder, being medically examined today. Patient with chronic history of orthostatic hypotension. Patient states he has been feeling pretty well. He states he has been eating and drinking well. He does have occasional dizziness with position changes. He denies any loss of consciousness. No falls. No acute medical complaints today. Denies any fevers, chills, weakness, fatigue , SMITH, CP, cough, palpitations, abdominal pain, N/V/D or changes in bowel or bladder habits. PMHx: Schizoaffective disorder Depression psychosis Generalized anxiety disorder Insomnia Hx of nephrolithiasis BPH Chronic nerve pain decreased hearing left ear hx of Orthostatic hypotension PSHX: Left TKA Right rotator cuff repair Varicose veins BL lower extremities SOCHX: Resides in: [facility] Marital Status: Single, lives alone Kids: 0 Employment: Retired from [employer] Tobacco use: 1ppd x ~50yrs ETOH: Denies, quit age 31yo Illicit Drugs: Denies IV Drug Use: Denies Tattoos done unprofessionally: Denies FAMHX: Mother: age 70s secondary to heart problems Father: age 49 secondary to alcoholism Siblings: 1 sister alive, well. 1 sister secondary to unknown cause late 50s Unexpected deaths due to medical reasons: As above, otherwise unremarkable ROS: As noted in HPI, otherwise 11pt ROS of systems reviewed and unremarkable. PE: GEN: 66yoM, appears stated age. Well-nourished, well developed. No acute distress. Alert and oriented x 3. Pleasant, interactive. HEENT: Normocephalic, atraumatic. Pupils are equal, round, and reactive to light. Extraocular movements are intact. No nystagmus appreciated. Sclera are nonicteric. Conjunctiva without injection. Nose midline. No facial asymmetry. Moist mucous membranes. Partial dentures in place. Pharynx pink and moist, no cobblestoning. Neck supple, trachea midline. No lymphadenopathy or thyromegaly appreciated. CHEST: Regular rate and rhythm, +S1, +S2 LUNGS: Clear to auscultation bilaterally. No wheezes, rales, or rhonchi. Breathing appears symmetric and easy. Patient is speaking in full sentences. No accessory muscle use. ABD: Round, soft, non-tender, non-distended. +Bowel sounds throughout. No rebound or guarding. No costovertebral angle tenderness. EXT: Pulses 2+ bilaterally dorsalis pedis and radial. No lower extremity edema appreciated. SKIN: [place], dry, warm. Capillary refill <2sec. No rashes. NEURO: Alert and oriented x 3. Cranial nerves III-XII are intact. No focal deficits appreciated. EKG pending. A&P: 65yoM admitted to [facility] for Schizoaffective disorder 1. Psych. Plan per Psychiatry. EKG pending. 2. Nicotine dependence. Patch available. 3. Hx of nephrolithiasis/ Hx of BPH. Pt is not on any medications, Pt with no symptoms at this time. Stable. 4. Follow up with Dr. Li in [place]. 5. Hx of Orthostasis. Monitor orthostatic VS. Encourage oral intake. Change positions slowly. Apply SIRISHA stockings if needed. Caution with medications which may contribute to orthostatic hypotension. 6. Staff member Ed present throughout exam. Vital Signs Vital Signs Date Time Temp Pulse Resp B/P (MAP) Pulse Ox O2 Delivery O2 Flow Rate FiO2 01/14/17 07:05 98.0 58 18 109/62 (78) Room Air 01/13/17 16:41 98 Laboratory Data Labs 24H Laboratory Tests 2 01/13/17 14:36: Anion Gap 12, Glomerular Filtration Rate > 60.0, Calcium Level 9.4, Aspartate Amino Transf (AST/SGOT) 18, Alanine Aminotransferase (ALT/SGPT) 32, Alkaline Phosphatase 103, Total Bilirubin 0.7, Direct Bilirubin 0.2, Total Protein 7.6, Albumin 4.0, Albumin/Globulin Ratio 1.11, Thyroid Stimulating Hormone (TSH) 1.640, Salicylates Level 3.4L, Acetaminophen Level < 2.0L, Ethyl Alcohol Level < 0.003 01/13/17 14:37: Urine Amphetamines Screen NEGATIVE, Urine Benzodiazepines Screen NEGATIVE, Urine Opiates Screen NEGATIVE, Urine Methadone Screen NEGATIVE, Urine Barbiturates Screen NEGATIVE, Urine Phencyclidine Screen NEGATIVE, Urine Cocaine Metabolite Screen NEGATIVE, Urine Cannabinoids Screen NEGATIVE CBC/BMP Laboratory Tests 01/13/17 14:36 Red Blood Count 4.76, Mean Corpuscular Volume 94.1, Mean Corpuscular Hemoglobin 32.6, Mean Corpuscular Hemoglobin Concent 34.7, Red Cell Distribution Width 12.8 Home Medications Scheduled Benztropine Mesylate (Benztropine Mesylate) 1 Mg Tab, 1 MG PO DAILY Fluoxetine HCl (Fluoxetine HCl) 10 Mg Cap, 10 MG PO DAILY 30MG TOTAL DAILY Fluoxetine Hcl (Fluoxetine HCl) 20 Mg Cap, 20 MG PO DAILY 30MG TOTAL DAILY Multivitamins *[facility] STOCKED* (Thera M Plus *[facility] STOCKED*) 1 Tab Tab, 1 TAB PO DAILY Paliperidone Palmitate (Invega Sustenna) 234 Mg/1.5 Ml Inj, 234 MG IM QMONTH DUE 01/13/17 Allergies Coded Allergies: Ibuprofen (Verified Allergy, Mild, ITCHING, 09/22/16) Nora Fountain Jan 14, 2017 09:50
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
[2017-01-14] MEDS: NICOTINE 21MG/24HR 1 EA TRANSDERMAL TD SCH (12:06)
[2017-01-14 18:15] VITALS: BP 134/69
[2017-01-14 18:16] VITALS: BP 127/75
[2017-01-14 18:17] VITALS: BP 132/85
--- NOTE | 2017-01-14 20:48 | ECGEPIP ---
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 No significant change compared with 10/04/2016. Electronically Signed On 01-14-2017 20:48:13 EDT by Negro Hidalgo
[2017-01-14] MEDS ORDERED: PALIPERIDONE 6 MG ER TAB (INVEGA) PO SCH (21:00)
[2017-01-15 06:43] VITALS: BP 155/91
[2017-01-15 07:01] VITALS: BP 135/80
[2017-01-15] MEDS: NICOTINE 21MG/24HR 1 EA TRANSDERMAL TD SCH (08:23)
[2017-01-15] MEDS: BENZTROPINE 1 MG TAB PO SCH (08:23)
[2017-01-15] MEDS: FLUoxetine 10 MG CAP PO SCH (08:23)
[2017-01-15] MEDS ORDERED: PREVNAR 13 VACCINE SYRINGE (CPT CODE:90670) IM ONE (09:00)
--- NOTE | 2017-01-15 11:23 | MHIPNPDOC ---
[facility] Progress Note Progress Note DATE OF SERVICE: 01/15/17 HISTORY: day 3 of admission for decompensation/psychosis. VITAL SIGNS: See below. 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 No significant change compared with 10/04/2016. Electronically Signed On 01-14-2017 20:48:13 EDT by Negro Hidalgo DD: Negro Hidalgo MD [facility] 01/14/17 1303 CURRENT MEDICATIONS: See below. MENTAL STATUS EXAMINATION: General appearance: Patient is a 66-year old male, who is tall, medium frame, pastor hair, dark glasses, good eye contact, wearing hospital garb. Speech: spontaneous and clear Thought processes: linear, no FOI, IOR or RITO Thought content: appropriate. Abstract reasoning and computation: very good. Description of associations: good. Description of abnormal or psychotic thoughts: pt hears male and female voices he attributes to the voice of friends he once knew, they aer continuous, every day, silent during interview, he pictures these people when the voices speak to him, some vague visual hallucinations reported. Judgment: good. Insight: good. Orientation: fully oriented to place, time, surroundings and self. Recent and remote memory: intact Attention span and concentration: good. Fund of knowledge: Full Mood: "okay" Affect: anxious DIAGNOSES: 1. schizoaffective disorder 2. MDD by history 3. RIMA by history. ASSESSMENT:met with pt for 1:1. he reports ongoing auditory hallucinations that are quite constant. He was given oral Invega at hs last night after his Sustenna injection during the day. Pt is pleasant and attends group. he appears depressed. No behavior problems. He is eating. Denies problems with elimination. Denies suicidal thoughts or plan or intentions. Pt slept well last night. MANAGEMENT PLAN: Increase po Invega to 9 mg at hs tonight. Can lower once Sustenna takes effect if auditory disturbance ceases. Should not require po Invega on Sustenna. Monitor anxiety, effectiveness of meds and safety. Continue close observation. Enc good nutrition and adequate po intake. TIME SPENT: 25 minutes. Vital Signs Vital Signs Date Time Temp Pulse Resp B/P (MAP) Pulse Ox O2 Delivery O2 Flow Rate FiO2 01/15/17 07:01 99.1 62 20 135/80 (98) Room Air 01/13/17 16:41 98 Current Medications Current Medications Al Hydrox/Mg Hydrox/Simethicone (Mylanta) 30 ml Q4HP PRN PO HEARTBURN/ INDIGESTION; Start 01/13/17 at 16:30; Stop 02/12/17 at 16:29 Benztropine Mesylate (Cogentin) 1 mg DAILY PO Last administered on 01/15/17 08 :23; Start 01/14/17 at 09:00; Stop 02/13/17 at 08:59 Fluoxetine HCl (PROzac) 30 mg DAILY PO Last administered on 01/15/17 08:23; Start 01/14/17 at 09:00; Stop 02/13/17 at 08:59 Home Med (Med Rec Complete!) ASDIRECTED XX ; Start 01/13/17 at 17:00; Stop at 17:01; Status DC Magnesium Hydroxide (Milk Of Magnesia) 30 ml DAILYPRN PRN PO CONSTIPATION; Start 01/13/17 at 16:30; Stop 02/12/17 at 16:29 Nicotine (Nicoderm Cq 21mg) 1 patch DAILY TD Last administered on 01/15/17 08: 23; Start 01/14/17 at 09:00; Stop 02/13/17 at 08:59 Olanzapine (ZyPREXA ZYDIS) 5 mg Q4HP PRN PO AGITATION; Start 01/13/17 at 16 :30; Stop 02/12/17 at 16:29 Paliperidone (Invega) 6 mg QHS PO Last administered on 01/14/17 22:11; Start 01/14/17 at 21:00; Stop 01/15/17 at 10:35; Status DC Paliperidone (Invega) 9 mg QHS PO ; Start 01/15/17 at 21:00; Stop 02/14/17 at 20 :59 Paliperidone Palmitate (Invega Sustenna) 156 mg Q30D IM Last administered on t 12:09; Start 01/14/17 at 09:00; Stop 02/13/17 at 08:59 Trazodone HCl (Desyrel) 50 mg QHSP PRN PO INSOMNIA; Start 01/13/17 at 16:30; Stop 02/12/17 at 16:29; Status Cancel Allergies Coded Allergies: Ibuprofen (Verified Allergy, Mild, ITCHING, 09/22/16) Vero Freeman Jan 15, 2017 11:23
[2017-01-15 18:00] VITALS: BP 131/76
[2017-01-15] MEDS: PALIPERIDONE 6 MG ER TAB (INVEGA) PO SCH (20:47)
[2017-01-15] MEDS: OLANZapine ORAL DISINTEGRATING TAB 5MG PO PRN (20:47)
[2017-01-16 06:44] VITALS: BP 131/81
[2017-01-16] MEDS: FLUoxetine 10 MG CAP PO SCH (08:22)
[2017-01-16] MEDS: NICOTINE 21MG/24HR 1 EA TRANSDERMAL TD SCH (08:22)
[2017-01-16] MEDS: BENZTROPINE 1 MG TAB PO SCH (08:22)
[2017-01-16 18:00] VITALS: BP 154/83
--- NOTE | 2017-01-16 19:28 | MHIPNPDOC ---
[facility] Progress Note Progress Note DATE OF SERVICE: 01/16/17 HISTORY: Patient was seen and evaluated. He reports ongoing auditory hallucinations that are everyday problem, but thinks that they're fading away and not intense as they used to be. Pt is pleasant and attends group. he appears depressed. No behavior problems. He is eating fine, but reported that he does have sleep problems. Denies problems with elimination. Denies suicidal thoughts or plan or intentions. VITAL SIGNS: See below. CURRENT MEDICATIONS: See below. MENTAL STATUS EXAMINATION: General appearance: Patient is a 66-year old male, who is tall, medium frame, pastor hair, dark glasses, good eye contact, wearing hospital garb. Speech: spontaneous and clear Thought processes: linear, no FOI, IOR or RITO Thought content: appropriate. Abstract reasoning and computation: very good. Description of associations: good. Description of abnormal or psychotic thoughts: pt hears male and female voices he attributes to the voice of friends he once knew, they are continuous, every day, silent during interview, he pictures these people when the voices speak to him, some vague visual hallucinations reported. Judgment: good. Insight: good. Orientation: fully oriented to place, time, surroundings and self. Recent and remote memory: intact Attention span and concentration: good. Fund of knowledge: Full Mood: "okay" Affect: anxious DIAGNOSES: 1. schizoaffective disorder 2. MDD by history 3. RIMA by history. ASSESSMENT: MANAGEMENT PLAN: COntinue current meds, Should not require po Invega on Sustenna. Monitor anxiety, effectiveness of meds and safety. Continue close observation. Enc good nutrition and adequate po intake. TIME SPENT: 15 minutes. Vital Signs Vital Signs Date Time Temp Pulse Resp B/P (MAP) Pulse Ox O2 Delivery O2 Flow Rate FiO2 01/16/17 06:44 98.3 63 18 131/81 (98) 01/15/17 07:01 Room Air 01/13/17 16:41 98 Current Medications Current Medications Al Hydrox/Mg Hydrox/Simethicone (Mylanta) 30 ml Q4HP PRN PO HEARTBURN/ INDIGESTION; Start 01/13/17 at 16:30; Stop 02/12/17 at 16:29 Benztropine Mesylate (Cogentin) 1 mg DAILY PO Last administered on 01/16/17t 08 :22; Start 01/14/17 at 09:00; Stop 02/13/17 at 08:59 Fluoxetine HCl (PROzac) 30 mg DAILY PO Last administered on 01/16/17 08:22; Start 01/14/17 at 09:00; Stop 02/13/17 at 08:59 Home Med (Med Rec Complete!) ASDIRECTED XX ; Start 01/13/17 at 17:00; Stop at 17:01; Status DC Magnesium Hydroxide (Milk Of Magnesia) 30 ml DAILYPRN PRN PO CONSTIPATION; Start 01/13/17 at 16:30; Stop 02/12/17 at 16:29 Nicotine (Nicoderm Cq 21mg) 1 patch DAILY TD Last administered on 01/16/17 08: 22; Start 01/14/17 at 09:00; Stop 02/13/17 at 08:59 Olanzapine (ZyPREXA ZYDIS) 5 mg Q4HP PRN PO AGITATION Last administered on 01/15/17 20:47; Start 01/13/17 at 16:30; Stop 02/12/17 at 16:29 Paliperidone (Invega) 6 mg QHS PO Last administered on 01/14/17 22:11; Start 01/14/17 at 21:00; Stop 01/15/17 at 10:35; Status DC Paliperidone (Invega) 9 mg QHS PO Last administered on 01/15/17 20:47; Start 01/15/17 at 21:00; Stop 02/14/17 at 20:59 Paliperidone Palmitate (Invega Sustenna) 156 mg Q30D IM Last administered on 12:09; Start 01/14/17 at 09:00; Stop 02/13/17 at 08:59 Trazodone HCl (Desyrel) 50 mg QHSP PRN PO INSOMNIA; Start 01/13/17 at 16:30; Stop 02/12/17 at 16:29; Status Cancel Allergies Coded Allergies: Ibuprofen (Verified Allergy, Mild, ITCHING, 09/22/16) LAURO BACA MD Jan 16, 2017 19:28
[2017-01-16] MEDS: PALIPERIDONE 6 MG ER TAB (INVEGA) PO SCH (20:27)
[2017-01-16] MEDS: OLANZapine ORAL DISINTEGRATING TAB 5MG PO PRN (20:27)
[2017-01-17 07:01] VITALS: BP 132/69
[2017-01-17] MEDS: BENZTROPINE 1 MG TAB PO SCH (07:58)
[2017-01-17] MEDS: FLUoxetine 10 MG CAP PO SCH (07:58)
[2017-01-17] MEDS: NICOTINE 21MG/24HR 1 EA TRANSDERMAL TD SCH (07:58)
[2017-01-17 18:00] VITALS: BP_SYST 109; BP_SYST 114; BP_SYST 130; BP_DIAS 70; BP_DIAS 72; BP_DIAS 79
--- NOTE | 2017-01-17 18:07 | MHIPNPDOC ---
[facility] Progress Note Progress Note DATE OF SERVICE: 01/17/17 HISTORY: Patient was seen and evaluated. He reported that he remains to himself most of the day and sleeps most of the time, but trying his best to go to the groups and other milieu activities in the unit. He reported that he is hearing voices even for a short time and get criticizing him. He reported that in the past he used to have command hallucinations, but never acted on the command hallucinations. He reported he slept well yesterday and has been trying his best to take care of himself better in terms of grooming and hygiene and eating better, denies any suicidal or homicidal ideations and denies any intentions or plans. He also denies any paranoid ideations. No agitation or aggression reported in the unit VITAL SIGNS: See below. CURRENT MEDICATIONS: See below. MENTAL STATUS EXAMINATION: General appearance: Patient is a 66-year old male, who is tall, medium frame, pastor hair, dark glasses, good eye contact, wearing hospital garb. Speech: spontaneous and clear Thought processes: linear, no FOI, IOR or IRTO Thought content: appropriate. Abstract reasoning and computation: very good. Description of associations: good. Description of abnormal or psychotic thoughts: pt hears male and female voices he attributes to the voice of friends he once knew, they are continuous, every day, silent during interview, he pictures these people when the voices speak to him, some vague visual hallucinations reported. Judgment: good. Insight: good. Orientation: fully oriented to place, time, surroundings and self. Recent and remote memory: intact Attention span and concentration: good. Fund of knowledge: Full Mood: "okay" Affect: anxious DIAGNOSES: 1. schizoaffective disorder 2. MDD by history 3. RIMA by history. MANAGEMENT PLAN: Continue current meds, Continue close observation. Enc good nutrition and adequate po intake. TIME SPENT: 15 minutes. Vital Signs Vital Signs Date Time Temp Pulse Resp B/P (MAP) Pulse Ox O2 Delivery O2 Flow Rate FiO2 01/17/17 07:01 99.8 98 16 132/69 (90) 01/15/17 07:01 Room Air 01/13/17 16:41 98 Current Medications Current Medications Al Hydrox/Mg Hydrox/Simethicone (Mylanta) 30 ml Q4HP PRN PO HEARTBURN/ INDIGESTION; Start 01/13/17 at 16:30; Stop 02/12/17 at 16:29 Benztropine Mesylate (Cogentin) 1 mg DAILY PO Last administered on 01/17/17 07: 58; Start 01/14/17 at 09:00; Stop 02/13/17 at 08:59 Fluoxetine HCl (PROzac) 30 mg DAILY PO Last administered on 01/17/17 07:58; Start 01/14/17 at 09:00; Stop 02/13/17 at 08:59 Home Med (Med Rec Complete!) ASDIRECTED XX ; Start 01/13/17 at 17:00; Stop at 17:01; Status DC Magnesium Hydroxide (Milk Of Magnesia) 30 ml DAILYPRN PRN PO CONSTIPATION; Start 01/13/17 at 16:30; Stop 02/12/17 at 16:29 Nicotine (Nicoderm Cq 21mg) 1 patch DAILY TD Last administered on 01/17/17 07: 58; Start 01/14/17 at 09:00; Stop 02/13/17 at 08:59 Olanzapine (ZyPREXA ZYDIS) 5 mg Q4HP PRN PO AGITATION Last administered on 01/16/17 20:27; Start 01/13/17 at 16:30; Stop 02/12/17 at 16:29 Paliperidone (Invega) 6 mg QHS PO Last administered on 01/14/17 22:11; Start 01/14/17 at 21:00; Stop 01/15/17 at 10:35; Status DC Paliperidone (Invega) 9 mg QHS PO Last administered on 01/16/17 20:27; Start 01/15/17 at 21:00; Stop 02/14/17 at 20:59 Paliperidone Palmitate (Invega Sustenna) 156 mg Q30D IM Last administered on 12:09; Start 01/14/17 at 09:00; Stop 02/13/17 at 08:59 Trazodone HCl (Desyrel) 50 mg QHSP PRN PO INSOMNIA; Start 01/13/17 at 16:30; Stop 02/12/17 at 16:29; Status Cancel Allergies Coded Allergies: Ibuprofen (Verified Allergy, Mild, ITCHING, 09/22/16) LAURO BACA MD Jan 17, 2017 18:07
[2017-01-17] MEDS: OLANZapine ORAL DISINTEGRATING TAB 5MG PO PRN (20:14)
[2017-01-17] MEDS: PALIPERIDONE 6 MG ER TAB (INVEGA) PO SCH (20:14)
[2017-01-18 07:05] VITALS: BP_SYST 150; BP_SYST 155; BP_SYST 160; BP_DIAS 80; BP_DIAS 85
[2017-01-18] MEDS: BENZTROPINE 1 MG TAB PO SCH (09:12)
[2017-01-18] MEDS: NICOTINE 21MG/24HR 1 EA TRANSDERMAL TD SCH (09:12)
[2017-01-18] MEDS: FLUoxetine 10 MG CAP PO SCH (09:12)
[2017-01-18 18:00] VITALS: BP_SYST 126; BP_SYST 140; BP_SYST 141; BP_DIAS 71; BP_DIAS 81; BP_DIAS 82
[2017-01-18] MEDS: PALIPERIDONE 6 MG ER TAB (INVEGA) PO SCH (21:16)
[2017-01-19 06:32] VITALS: BP_SYST 126; BP_SYST 139; BP_SYST 149; BP_DIAS 70; BP_DIAS 77; BP_DIAS 80
[2017-01-19] MEDS: NICOTINE 21MG/24HR 1 EA TRANSDERMAL TD SCH (09:16)
[2017-01-19] MEDS: BENZTROPINE 1 MG TAB PO SCH (09:16)
[2017-01-19] MEDS: FLUoxetine 10 MG CAP PO SCH (09:16)
[2017-01-19 18:00] VITALS: BP 120/69
[2017-01-19] MEDS: PALIPERIDONE 6 MG ER TAB (INVEGA) PO SCH (20:48)
[2017-01-20 07:00] VITALS: BP_SYST 142; BP_SYST 157; BP_SYST 158; BP_DIAS 85; BP_DIAS 86; BP_DIAS 92
[2017-01-20] MEDS: BENZTROPINE 1 MG TAB PO SCH (08:02)
[2017-01-20] MEDS: NICOTINE 21MG/24HR 1 EA TRANSDERMAL TD SCH (08:02)
[2017-01-20] MEDS: FLUoxetine 10 MG CAP PO SCH (08:02)
[2017-01-20 18:00] VITALS: BP 130/64
[2017-01-20] MEDS: PALIPERIDONE 6 MG ER TAB (INVEGA) PO SCH (20:21)
[2017-01-20] MEDS: OLANZapine ORAL DISINTEGRATING TAB 5MG PO PRN (20:23)
[2017-01-21 06:32] VITALS: BP_SYST 145; BP_SYST 147; BP_SYST 149; BP_DIAS 80; BP_DIAS 81; BP_DIAS 82
[2017-01-21] MEDS: BENZTROPINE 1 MG TAB PO SCH (08:16)
[2017-01-21] MEDS: NICOTINE 21MG/24HR 1 EA TRANSDERMAL TD SCH (08:16)
[2017-01-21] MEDS: FLUoxetine 10 MG CAP PO SCH (08:17)
[2017-01-21] MEDS: PALIPERIDONE 6 MG ER TAB (INVEGA) PO SCH ×2 (09:34→20:31)
--- NOTE | 2017-01-21 16:09 | MHIPNPDOC ---
[facility] Progress Note Progress Note DATE OF SERVICE: 01/21/17 HISTORY: day 9 of admission for decompensating - auditory hallucinations. VITAL SIGNS: See below. NEW TEST RESULTS: na CURRENT MEDICATIONS: See below. MENTAL STATUS EXAMINATION: General appearance: Patient is a 66-year old male, who is tall, medium frame, pastor hair, dark glasses, good eye contact, wearing hospital garb. Speech: spontaneous and clear Thought processes: linear, no FOI, IOR or RITO Thought content: appropriate. Abstract reasoning and computation: very good. Description of associations: good. Description of abnormal or psychotic thoughts: pt hears male and female voices he attributes to the voice of friends he once knew, they are continuous, every day, silent during interview, he pictures these people when the voices speak to him, some vague visual hallucinations reported. Judgment: good. Insight: good. Orientation: fully oriented to place, time, surroundings and self. Recent and remote memory: intact Attention span and concentration: good. Fund of knowledge: Full Mood: "okay" Affect: anxious DIAGNOSES: 1. schizoaffective disorder 2. MDD by history 3. RIMA by history. ASSESSMENT:pt reports voices are less however he still has them everyday in the early evening. Hygiene is good. Could use a hair cut. Mood is stable. Pt attends groups sporadically. finds it difficult to concentrate. rests between groups. MANAGEMENT PLAN: Increase Invega to bid - 6 mg bid, increase from 9mg at hs. monitor for EPS, monitor safety and sleep. He says the voices tell him they will harm him. Provide support. monitor for effectiveness of Invega increase. Discuss [facility] if it is an option for him per his request. TIME SPENT: 15 minutes. Vital Signs Vital Signs Date Time Temp Pulse Resp B/P (MAP) Pulse Ox O2 Delivery O2 Flow Rate FiO2 01/21/17 06:32 98.4 59 20 149/80 (103) 01/20/17 06:59 Room Air Current Medications Current Medications Al Hydrox/Mg Hydrox/Simethicone (Mylanta) 30 ml Q4HP PRN PO HEARTBURN/ INDIGESTION; Start 01/13/17 at 16:30; Stop 02/12/17 at 16:29 Benztropine Mesylate (Cogentin) 1 mg DAILY PO Last administered on 01/21/17t 08: 16; Start 01/14/17 at 09:00; Stop 02/13/17 at 08:59 Fluoxetine HCl (PROzac) 30 mg DAILY PO Last administered on 01/21/17 08:17; Start 01/14/17 at 09:00; Stop 02/13/17 at 08:59 Home Med (Med Rec Complete!) ASDIRECTED XX ; Start 01/13/17 at 17:00; Stop at 17:01; Status DC Magnesium Hydroxide (Milk Of Magnesia) 30 ml DAILYPRN PRN PO CONSTIPATION; Start 01/13/17 at 16:30; Stop 02/12/17 at 16:29 Nicotine (Nicoderm Cq 21mg) 1 patch DAILY TD Last administered on 01/21/17 08: 16; Start 01/14/17 at 09:00; Stop 02/13/17 at 08:59 Olanzapine (ZyPREXA ZYDIS) 5 mg Q4HP PRN PO AGITATION Last administered on 01/20/17 20:23; Start 01/13/17 at 16:30; Stop 02/12/17 at 16:29 Paliperidone (Invega) 6 mg BID PO Last administered on 01/21/17 09:34; Start at 09:00; Stop 02/14/17 at 08:59 Paliperidone (Invega) 6 mg QHS PO Last administered on 01/14/17 22:11; Start 01/14/17 at 21:00; Stop 01/15/17 at 10:35; Status DC Paliperidone (Invega) 9 mg QHS PO Last administered on 01/20/17 20:21; Start at 21:00; Stop 01/21/17 at 09:18; Status DC Paliperidone Palmitate (Invega Sustenna) 156 mg Q30D IM Last administered on 12:09; Start 01/14/17 at 09:00; Stop 02/13/17 at 08:59 Trazodone HCl (Desyrel) 50 mg QHSP PRN PO INSOMNIA; Start 01/13/17 at 16:30; Stop 02/12/17 at 16:29; Status Cancel Allergies Coded Allergies: Ibuprofen (Verified Allergy, Mild, ITCHING, 09/22/16) Vero Freeman Jan 21, 2017 16:09
[2017-01-21 18:00] VITALS: BP_SYST 134; BP_SYST 136; BP_SYST 148; BP_DIAS 76; BP_DIAS 78; BP_DIAS 90
[2017-01-21] MEDS: OLANZapine ORAL DISINTEGRATING TAB 5MG PO PRN (20:32)
[2017-01-22 06:34] VITALS: BP_SYST 111; BP_SYST 130; BP_SYST 136; BP_DIAS 67; BP_DIAS 73; BP_DIAS 76
[2017-01-22 06:36] VITALS: BP 130/73
[2017-01-22] MEDS: BENZTROPINE 1 MG TAB PO SCH (08:24)
[2017-01-22] MEDS: FLUoxetine 10 MG CAP PO SCH (08:24)
[2017-01-22] MEDS: PALIPERIDONE 6 MG ER TAB (INVEGA) PO SCH ×2 (08:24→20:40)
[2017-01-22] MEDS: NICOTINE 21MG/24HR 1 EA TRANSDERMAL TD SCH (08:24)
--- NOTE | 2017-01-22 13:17 | MHIPNPDOC ---
[facility] Progress Note Progress Note DATE OF SERVICE: 01/22/17 HISTORY: day 10 of admission for decompensation related to schizophrenia - return of psychotic symptoms. VITAL SIGNS: See below. NEW TEST RESULTS: na CURRENT MEDICATIONS: See below. MENTAL STATUS EXAMINATION: General appearance: Patient is a 66-year old male, who is tall, medium frame, pastor hair, dark glasses, good eye contact, wearing hospital garb. Speech: spontaneous and clear Thought processes: linear, no FOI, IOR or RITO Thought content: appropriate. Abstract reasoning and computation: very good. Description of associations: good. Description of abnormal or psychotic thoughts: pt hears male and female voices he attributes to the voice of friends he once knew, they are less frequent per his report. He hears them for a short time in the evening. Judgment: good. Insight: good. Orientation: fully oriented to place, time, surroundings and self. Recent and remote memory: intact Attention span and concentration: good. Fund of knowledge: Full Mood: "better" Affect: flat DIAGNOSES: 1. schizoaffective disorder 2. MDD by history 3. RIMA by history. ASSESSMENT:pt reports he feels better. the voices are decreasing. they occur daily but only last for a short time in the evening. they say they will harm him. he no longer believes [place] [facility] [place] He can tell he is improving. Sleep is good, appetite adequate, adls are good. He attends at least one program daily. He is a most pleasant man. MANAGEMENT PLAN: Pt will require the higher dose of Invega Sustenna and may need to be injected q 3 weeks versus q 4 weeks to keep from decompensating. we will see how he does on the oral Invega bid. if voices are tolerable by tomorrow we can discharge him on Friday. Goal is to eliminate voices entirely but not sure that will happen. Perhaps when med at steady state (after 4 months ) he will have more consistent, sustained relief. TIME SPENT: 25 minutes. Vital Signs Vital Signs Date Time Temp Pulse Resp B/P (MAP) Pulse Ox O2 Delivery O2 Flow Rate FiO2 01/22/17 09:38 Room Air 01/22/17 06:36 98.5 61 16 130/73 (92) Current Medications Current Medications Al Hydrox/Mg Hydrox/Simethicone (Mylanta) 30 ml Q4HP PRN PO HEARTBURN/ INDIGESTION; Start 01/13/17 at 16:30; Stop 02/12/17 at 16:29 Benztropine Mesylate (Cogentin) 1 mg DAILY PO Last administered on 01/22/17 08: 24; Start 01/14/17 at 09:00; Stop 02/13/17 at 08:59 Fluoxetine HCl (PROzac) 30 mg DAILY PO Last administered on 01/22/17 08:24; Start 01/14/17 at 09:00; Stop 02/13/17 at 08:59 Home Med (Med Rec Complete!) ASDIRECTED XX ; Start 01/13/17 at 17:00; Stop at 17:01; Status DC Magnesium Hydroxide (Milk Of Magnesia) 30 ml DAILYPRN PRN PO CONSTIPATION; Start 01/13/17 at 16:30; Stop 02/12/17 at 16:29 Nicotine (Nicoderm Cq 21mg) 1 patch DAILY TD Last administered on 01/22/17 08: 24; Start 01/14/17 at 09:00; Stop 02/13/17 at 08:59 Olanzapine (ZyPREXA ZYDIS) 5 mg Q4HP PRN PO AGITATION Last administered on 01/21/17 20:32; Start 01/13/17 at 16:30; Stop 02/12/17 at 16:29 Paliperidone (Invega) 6 mg BID PO Last administered on 01/22/17 08:24; Start at 09:00; Stop 02/14/17 at 08:59 Paliperidone (Invega) 6 mg QHS PO Last administered on 01/14/17 22:11; Start 01/14/17 at 21:00; Stop 01/15/17 at 10:35; Status DC Paliperidone (Invega) 9 mg QHS PO Last administered on 01/20/17 20:21; Start at 21:00; Stop 01/21/17 at 09:18; Status DC Paliperidone Palmitate (Invega Sustenna) 156 mg Q30D IM Last administered on 12:09; Start 01/14/17 at 09:00; Stop 02/13/17 at 08:59 Trazodone HCl (Desyrel) 50 mg QHSP PRN PO INSOMNIA; Start 01/13/17 at 16:30; Stop 02/12/17 at 16:29; Status Cancel Allergies Coded Allergies: Ibuprofen (Verified Allergy, Mild, ITCHING, 09/22/16) Vero Freeman Jan 22, 2017 13:17
[2017-01-22 18:00] VITALS: BP_SYST 101; BP_SYST 110; BP_SYST 119; BP_DIAS 61; BP_DIAS 68; BP_DIAS 71
[2017-01-22] MEDS: OLANZapine ORAL DISINTEGRATING TAB 5MG PO PRN (20:40)
[2017-01-23 06:29] VITALS: BP_SYST 102; BP_SYST 130; BP_SYST 134; BP_DIAS 66; BP_DIAS 79; BP_DIAS 81
[2017-01-23 06:31] VITALS: BP 130/79
[2017-01-23] MEDS: NICOTINE 21MG/24HR 1 EA TRANSDERMAL TD SCH (08:53)
[2017-01-23] MEDS: FLUoxetine 20 MG CAP PO SCH (08:53)
[2017-01-23] MEDS: PALIPERIDONE 6 MG ER TAB (INVEGA) PO SCH (08:53)
[2017-01-23] MEDS: BENZTROPINE 1 MG TAB PO SCH (08:53)
--- NOTE | 2017-01-23 10:59 | MHIPNPDOC ---
[facility] Progress Note Progress Note DATE OF SERVICE: 01/23/17 HISTORY: day 10 of admission VITAL SIGNS: See below. NEW TEST RESULTS: na CURRENT MEDICATIONS: See below. MENTAL STATUS EXAMINATION: Patient is a 67-year old male, who is tall, thin, wears glasses, needs haircut, clean shaven, dressed in street clothes, good eye contact. Speech: Is spontaneous and clear Language skills are intact Thought processes : linear Thought content: appropriate Abstract reasoning, and computation: good. Description of associations: good. Description of abnormal or psychotic thoughts: denies SI and HI, continues to be plagued by auditory hallucinations that mainly occur in the evening but last for several hours. . Judgment: good. Insight: good. Orientation: x 3 Recent and remote memory: intact Attention span and concentration: adequate Fund of knowledge: Full Mood: improving, better. Affect: flat. DIAGNOSES: 1. schizoaffective disorder 2. MDD by history 3. RIMA by history. ASSESSMENT: met with pt in a.m. and saw him again in treatment team meeting. We still have a ways to go for Sustenna to reach steady state. Pt continues to have auditory hallucinations but duration is much less than before. Will adjust po Invega and will add prn Invega. pt attends about 1 group a day. He is taking in solids and fluids regularly. No GI distress. MANAGEMENT PLAN: increase Invega to 6 mg in a.m. and 9 mg at hs. May have prn of 3 mg Invega for psychosis. Will discontinue Olanzapine for redundancy of treatment. Continue Cogentin. Will order EKG as results not found. Will obtain new CBC to check WBC's with increase in meds. Monitor for EPS. TIME SPENT: 25 minutes. Vital Signs Vital Signs Date Time Temp Pulse Resp B/P (MAP) Pulse Ox O2 Delivery O2 Flow Rate FiO2 01/23/17 09:03 Room Air 01/23/17 06:31 98.7 60 18 130/79 (96) Current Medications Current Medications Al Hydrox/Mg Hydrox/Simethicone (Mylanta) 30 ml Q4HP PRN PO HEARTBURN/ INDIGESTION; Start 01/13/17 at 16:30; Stop 02/12/17 at 16:29 Benztropine Mesylate (Cogentin) 1 mg DAILY PO Last administered on 01/23/17t 08: 53; Start 01/14/17 at 09:00; Stop 02/13/17 at 08:59 Fluoxetine HCl (PROzac) 30 mg DAILY PO Last administered on 01/22/17 08:24; Start 01/14/17 at 09:00; Stop 01/23/17 at 08:07; Status DC Fluoxetine HCl (PROzac) 40 mg DAILY PO Last administered on 01/23/17 08:53; Start 01/23/17 at 09:00; Stop 02/22/17 at 08:59 Home Med (Med Rec Complete!) ASDIRECTED XX ; Start 01/13/17 at 17:00; Stop at 17:01; Status DC Magnesium Hydroxide (Milk Of Magnesia) 30 ml DAILYPRN PRN PO CONSTIPATION; Start 01/13/17 at 16:30; Stop 02/12/17 at 16:29 Nicotine (Nicoderm Cq 21mg) 1 patch DAILY TD Last administered on 01/23/17 08: 53; Start 01/14/17 at 09:00; Stop 02/13/17 at 08:59 Olanzapine (ZyPREXA ZYDIS) 5 mg Q4HP PRN PO AGITATION Last administered on 01/22/17 20:40; Start 01/13/17 at 16:30; Stop 01/23/17 at 10:51; Status DC Paliperidone (Invega) 6 mg BID PO Last administered on 01/23/17 08:53; Start at 09:00; Stop 01/23/17 at 10:51; Status DC Paliperidone (Invega) 6 mg DAILY PO ; Start 01/24/17 at 09:00; Stop 02/23/17 at 08:59; Status UNV Paliperidone (Invega) 6 mg QHS PO Last administered on 01/14/17 22:11; Start 01/14/17 at 21:00; Stop 01/15/17 at 10:35; Status DC Paliperidone (Invega) 9 mg QHS PO Last administered on 01/20/17 20:21; Start at 21:00; Stop 01/21/17 at 09:18; Status DC Paliperidone (Invega) 9 mg QHS PO ; Start 01/23/17 at 21:00; Stop 02/22/17 at 20: 59; Status UNV Paliperidone Palmitate (Invega Sustenna) 156 mg Q30D IM Last administered on t 12:09; Start 01/14/17 at 09:00; Stop 02/13/17 at 08:59 Trazodone HCl (Desyrel) 50 mg QHSP PRN PO INSOMNIA; Start 01/13/17 at 16:30; Stop 02/12/17 at 16:29; Status Cancel Allergies Coded Allergies: Ibuprofen (Verified Allergy, Mild, ITCHING, 09/22/16) Vero Freeman Jan 23, 2017 10:59
[2017-01-23] MEDS ORDERED: PALIPERIDONE 3 MG ER TAB (INVEGA) PO PRN (11:00)
[2017-01-23 12:21] LABS: BASO # 0.1 K/mm3 (0.0-0.2); BASO % 0.8 % (0.0-1.0); EOS # 0.5 K/mm3 (0.0-0.50); EOS % 7.2 % (0.0-3.0); LARGE UNSTAINED CELL # 0.2 K/mm3 (0.0-0.4); LARGE UNSTAINED CELL % 3.7 % (0.0-4.0); LYMPH # 2.2 K/mm3 (1.5-4.5); LYMPH % 29.6 % (24.0-44.0); MEAN CORPUSCULAR HEMOGLOBIN 31.9 pg (27.0-33.0); MEAN CORPUSCULAR HGB CONC 33.7 g/dl (32.0-36.5); MEAN CORPUSCULAR VOLUME 94.7 fl (80.0-96.0); MONO # 0.6 K/mm3 (0.0-0.8); NEUTROPHILS # 3.3 K/mm3 (1.8-7.7); NEUTROPHILS % 49.6 % (36.0-66.0); PLATELET COUNT, AUTOMATED 200 k/mm3 (150-450); WHITE BLOOD COUNT 6.6 K/mm3 (4.0-10.0)
[2017-01-23 18:00] VITALS: BP_SYST 132; BP_SYST 145; BP_SYST 160; BP_DIAS 78; BP_DIAS 85; BP_DIAS 95
[2017-01-23] MEDS ORDERED: PALIPERIDONE 3 MG ER TAB (INVEGA) PO SCH (21:00)
--- NOTE | 2017-01-23 21:27 | ECGEPIP ---
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
[2017-01-24 06:00] VITALS: BP_SYST 141; BP_DIAS 75; BP_DIAS 78
[2017-01-24 06:49] VITALS: BP 141/78
[2017-01-24] MEDS: NICOTINE 21MG/24HR 1 EA TRANSDERMAL TD SCH (08:40)
[2017-01-24] MEDS: BENZTROPINE 1 MG TAB PO SCH (08:40)
[2017-01-24] MEDS: FLUoxetine 20 MG CAP PO SCH (08:40)
[2017-01-24] MEDS ORDERED: PALIPERIDONE 6 MG ER TAB (INVEGA) PO SCH (09:00)
--- NOTE | 2017-01-24 11:27 | MHIPNPDOC ---
[facility] Progress Note Progress Note DATE OF SERVICE: 01/24/17 HISTORY: day 12 of admission for decompensation of schizophrenia VITAL SIGNS: See below. 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 Will monitor. CURRENT MEDICATIONS: See below. MENTAL STATUS EXAMINATION: Patient is a 67-year old male, who is tall, thin, wears glasses, needs haircut, clean shaven, dressed in street clothes, good eye contact. Speech: Is spontaneous and clear Language skills are intact Thought processes : linear Thought content: appropriate Abstract reasoning, and computation: good. Description of associations: good. Description of abnormal or psychotic thoughts: denies SI and HI, continues to be plagued by auditory hallucinations that mainly occur in the evening but last for several hours. . Judgment: good. Insight: good. Orientation: x 3 Recent and remote memory: intact Attention span and concentration: adequate Fund of knowledge: Full Mood: improving, better. Affect: flat. DIAGNOSES: 1. schizoaffective disorder 2. MDD by history 3. RIMA by history ASSESSMENT: Pt states he feels better. Voices have greatly subsided since admission. Still hears them in a.m. and early evening but not as bothersome but still scare him and worry him. He asked not to be discharged until more stable. He is finding it difficult to engage socially. he keeps to himself much of the time. 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 It's getting to be that time of year again and hopefully he will watch a game or 2 this weekend with peers. MANAGEMENT PLAN: EKG shows QTc prolongation. Will discontinue po Invega and provide only prn Invega for psychotic symptoms. WBC's have not corrected. pt is afebrile. discuss with medicine. Reschedule meeting with TLS. TIME SPENT: 25 minutes. Vital Signs Vital Signs Date Time Temp Pulse Resp B/P (MAP) Pulse Ox O2 Delivery O2 Flow Rate FiO2 01/24/17 06:49 99.0 59 18 141/78 (99) 01/23/17 09:03 Room Air Current Medications Current Medications Al Hydrox/Mg Hydrox/Simethicone (Mylanta) 30 ml Q4HP PRN PO HEARTBURN/ INDIGESTION; Start 01/13/17 at 16:30; Stop 02/12/17 at 16:29 Benztropine Mesylate (Cogentin) 1 mg DAILY PO Last administered on 01/24/17 08: 40; Start 01/14/17 at 09:00; Stop 02/13/17 at 08:59 Fluoxetine HCl (PROzac) 30 mg DAILY PO Last administered on 01/22/17 08:24; Start 01/14/17 at 09:00; Stop 01/23/17 at 08:07; Status DC Fluoxetine HCl (PROzac) 40 mg DAILY PO Last administered on 01/24/17 08:40; Start 01/23/17 at 09:00; Stop 02/22/17 at 08:59 Home Med (Med Rec Complete!) ASDIRECTED XX ; Start 01/13/17 at 17:00; Stop at 17:01; Status DC Magnesium Hydroxide (Milk Of Magnesia) 30 ml DAILYPRN PRN PO CONSTIPATION; Start 01/13/17 at 16:30; Stop 02/12/17 at 16:29 Nicotine (Nicoderm Cq 21mg) 1 patch DAILY TD Last administered on 01/24/17 08: 40; Start 01/14/17 at 09:00; Stop 02/13/17 at 08:59 Olanzapine (ZyPREXA ZYDIS) 5 mg Q4HP PRN PO AGITATION Last administered on 01/22/17 20:40; Start 01/13/17 at 16:30; Stop 01/23/17 at 10:51; Status DC Paliperidone (Invega) 3 mg DAILY PRN PO AUDITORY HALLUCINATIONS; Start 01/23/17 at 11:00; Stop 02/22/17 at 10:59 Paliperidone (Invega) 6 mg BID PO Last administered on 01/23/17 08:53; Start at 09:00; Stop 01/23/17 at 10:51; Status DC Paliperidone (Invega) 6 mg DAILY PO Last administered on 01/24/17 08:40; Start 01/24/17 at 09:00; Stop 02/23/17 at 08:59 Paliperidone (Invega) 6 mg QHS PO Last administered on 01/14/17 22:11; Start 01/14/17 at 21:00; Stop 01/15/17 at 10:35; Status DC Paliperidone (Invega) 9 mg QHS PO Last administered on 01/20/17 20:21; Start at 21:00; Stop 01/21/17 at 09:18; Status DC Paliperidone (Invega) 9 mg QHS PO Last administered on 01/23/17 20:10; Start at 21:00; Stop 02/22/17 at 20:59 Paliperidone Palmitate (Invega Sustenna) 156 mg Q30D IM Last administered on 12:09; Start 01/14/17 at 09:00; Stop 02/13/17 at 08:59 Trazodone HCl (Desyrel) 50 mg QHSP PRN PO INSOMNIA; Start 01/13/17 at 16:30; Stop 02/12/17 at 16:29; Status Cancel Allergies Coded Allergies: Ibuprofen (Verified Allergy, Mild, ITCHING, 09/22/16) Vero Freeman Jan 24, 2017 11:27
[2017-01-24 18:00] VITALS: BP 129/74
[2017-01-24] MEDS: PALIPERIDONE 3 MG ER TAB (INVEGA) PO PRN (20:50)
[2017-01-25 06:45] VITALS: BP 136/79
[2017-01-25] MEDS: FLUoxetine 20 MG CAP PO SCH (08:18)
[2017-01-25] MEDS: BENZTROPINE 1 MG TAB PO SCH (08:18)
[2017-01-25] MEDS: NICOTINE 21MG/24HR 1 EA TRANSDERMAL TD SCH (08:18)
[2017-01-25 18:12] VITALS: BP 130/79
[2017-01-25] MEDS: PALIPERIDONE 3 MG ER TAB (INVEGA) PO PRN (20:14)
[2017-01-26 06:44] VITALS: BP 133/77
[2017-01-26] MEDS: NICOTINE 21MG/24HR 1 EA TRANSDERMAL TD SCH (08:04)
[2017-01-26] MEDS: BENZTROPINE 1 MG TAB PO SCH (08:04)
[2017-01-26] MEDS: FLUoxetine 20 MG CAP PO SCH (08:04)
[2017-01-26 18:11] VITALS: BP 118/67
[2017-01-27 07:03] VITALS: BP 130/77
[2017-01-27] MEDS: FLUoxetine 20 MG CAP PO SCH (08:58)
[2017-01-27] MEDS: NICOTINE 21MG/24HR 1 EA TRANSDERMAL TD SCH (08:58)
[2017-01-27] MEDS: BENZTROPINE 1 MG TAB PO SCH (08:58)
--- NOTE | 2017-01-27 12:56 | MHIPNPDOC ---
[facility] Progress Note Progress Note DATE OF SERVICE: 01/27/17 HISTORY: day 15 for exacerbation of psychotic symptoms related to schizophrenia VITAL SIGNS: See below. NEW TEST RESULTS: EKG showed QTc prolongation. Invega decreased. CURRENT MEDICATIONS: See below. MENTAL STATUS EXAMINATION: Patient is a 67-year old male, who is resting in bed, fully clothed, shoes on, shaven with pleasant affect. Patient is a 67-year old male, who is tall, thin, wears glasses, needs haircut, clean shaven, dressed in street clothes, good eye contact. Speech: Is spontaneous and clear Language skills are intact Thought processes : linear Thought content: appropriate Abstract reasoning, and computation: good. Description of associations: good. Description of abnormal or psychotic thoughts: denies SI and HI, continues to be plagued by auditory hallucinations 4-5 times a day. They continue for about 30 minutes. Judgment: good. Insight: good. Orientation: x 3 Recent and remote memory: intact Attention span and concentration: adequate Fund of knowledge: Full Mood: improving, better. Affect: flat. DIAGNOSES: 1. schizoaffective disorder 2. MDD by history 3. RIMA by history ASSESSMENT:Mr. Schuler reports auditory hallucination 4-5 times daily. He does not feel ready for discharge. We have prepared his chart for consideration of transfer to [facility] for stabilization. A repeat EKG last week showed QTc interval prolongation so Invega po was changed from standing to prn. He is not getting relief from psychotic symptoms with this. MANAGEMENT PLAN: will plan to give sustenna injection 1 week early. discontinue prn invega. give risperdone 1.5 mg at hs. for relief of psychosis, recheck EKG and labs within 1 week. enc oob and group milieu each day. TIME SPENT: 25 minutes. Vital Signs Vital Signs Date Time Temp Pulse Resp B/P (MAP) Pulse Ox O2 Delivery O2 Flow Rate FiO2 01/27/17 07:03 99.5 60 18 130/77 (94) Room Air Current Medications Current Medications Al Hydrox/Mg Hydrox/Simethicone (Mylanta) 30 ml Q4HP PRN PO HEARTBURN/ INDIGESTION; Start 01/13/17 at 16:30; Stop 02/12/17 at 16:29 Benztropine Mesylate (Cogentin) 1 mg DAILY PO Last administered on 01/27/17 08 :58; Start 01/14/17 at 09:00; Stop 02/13/17 at 08:59 Fluoxetine HCl (PROzac) 30 mg DAILY PO Last administered on 01/22/17 08:24; Start 01/14/17 at 09:00; Stop 01/23/17 at 08:07; Status DC Fluoxetine HCl (PROzac) 40 mg DAILY PO Last administered on 01/27/17 08:58; Start 01/23/17 at 09:00; Stop 02/22/17 at 08:59 Home Med (Med Rec Complete!) ASDIRECTED XX ; Start 01/13/17 at 17:00; Stop at 17:01; Status DC Magnesium Hydroxide (Milk Of Magnesia) 30 ml DAILYPRN PRN PO CONSTIPATION; Start 01/13/17 at 16:30; Stop 02/12/17 at 16:29 Nicotine (Nicoderm Cq 21mg) 1 patch DAILY TD Last administered on 01/27/17 08: 58; Start 01/14/17 at 09:00; Stop 02/13/17 at 08:59 Olanzapine (ZyPREXA ZYDIS) 5 mg Q4HP PRN PO AGITATION Last administered on 01/22/17 20:40; Start 01/13/17 at 16:30; Stop 01/23/17 at 10:51; Status DC Paliperidone (Invega) 3 mg DAILY PRN PO AUDITORY HALLUCINATIONS; Start 01/23/17 at 11:00; Stop 01/24/17 at 12:08; Status DC Paliperidone (Invega) 3 mg Q8HP PRN PO AUDITORY HALLUCINATIONS Last administered on 01/25/17 20:14; Start 01/24/17 at 09:00; Stop 02/23/17 at 08:59 Paliperidone (Invega) 6 mg BID PO Last administered on 01/23/17 08:53; Start at 09:00; Stop 01/23/17 at 10:51; Status DC Paliperidone (Invega) 6 mg DAILY PO Last administered on 01/24/17 08:40; Start 01/24/17 at 09:00; Stop 01/24/17 at 11:47; Status DC Paliperidone (Invega) 6 mg QHS PO Last administered on 01/14/17 22:11; Start 01/14/17 at 21:00; Stop 01/15/17 at 10:35; Status DC Paliperidone (Invega) 9 mg QHS PO Last administered on 01/20/17 20:21; Start at 21:00; Stop 01/21/17 at 09:18; Status DC Paliperidone (Invega) 9 mg QHS PO Last administered on 01/23/17 20:10; Start at 21:00; Stop 01/24/17 at 11:47; Status DC Paliperidone Palmitate (Invega Sustenna) 156 mg Q30D IM Last administered on 12:09; Start 01/14/17 at 09:00; Stop 02/13/17 at 08:59 Trazodone HCl (Desyrel) 50 mg QHSP PRN PO INSOMNIA; Start 01/13/17 at 16:30; Stop 02/12/17 at 16:29; Status Cancel Allergies Coded Allergies: Ibuprofen (Verified Allergy, Mild, ITCHING, 09/22/16) Vero Freeman Jan 27, 2017 12:56
[2017-01-27 18:00] VITALS: BP 118/68
[2017-01-27] MEDS: risperiDONE 1 MG M-TAB PO SCH (20:22)
[2017-01-28 06:46] VITALS: BP 116/63
[2017-01-28] MEDS: BENZTROPINE 1 MG TAB PO SCH (08:13)
[2017-01-28] MEDS: FLUoxetine 20 MG CAP PO SCH (08:13)
[2017-01-28] MEDS: NICOTINE 21MG/24HR 1 EA TRANSDERMAL TD SCH (08:13)
--- NOTE | 2017-01-28 16:37 | MHIPNPDOC ---
[facility] Progress Note Progress Note DATE OF SERVICE: 01/28/17 HISTORY: day 16 of admission/currently on 2 PC status VITAL SIGNS: See below. NEW TEST RESULTS:na. CURRENT MEDICATIONS: See below. MENTAL STATUS EXAMINATION: Patient is a 67-year old male, who is resting in bed, fully clothed, shoes on, shaven with pleasant affect. Patient is a 67-year old male, who is tall, thin, wears glasses, needs haircut, clean shaven, dressed in street clothes, good eye contact. Speech: Is spontaneous and clear Language skills are intact Thought processes : linear Thought content: appropriate Abstract reasoning, and computation: good. Description of associations: good. Description of abnormal or psychotic thoughts: denies SI and HI, continues to be plagued by auditory hallucinations 4-5 times a day. They continue for about 30 minutes. Judgment: good. Insight: good. Orientation: x 3 Recent and remote memory: intact Attention span and concentration: adequate Fund of knowledge: Full Mood: improving, better. Affect: flat. DIAGNOSES: 1. schizoaffective disorder 2. MDD by history 3. RIMA by history ASSESSMENT:staff will assist chief writer in encouraging pt to get out of room and be more visible on the unit. He has agreed to attend at least 1 group a day. Pt reports adequate sleep, and good appetite. he continues to hear voices and it is very distracting to him. Hygiene is adequate. chief writer will continue adjusting meds in the hope voices can be eliminated. MANAGEMENT PLAN: encourage group engagement, continue observation and meds. Awaiting word from [facility] about transfer. His TLS visual merchandising assistant was in yesterday to have him sign something. recheck labs and ekg. TIME SPENT: 15 minutes. Vital Signs Vital Signs Date Time Temp Pulse Resp B/P (MAP) Pulse Ox O2 Delivery O2 Flow Rate FiO2 01/28/17 06:46 97.7 61 16 116/63 (80) Room Air Current Medications Current Medications Al Hydrox/Mg Hydrox/Simethicone (Mylanta) 30 ml Q4HP PRN PO HEARTBURN/ INDIGESTION; Start 01/13/17 at 16:30; Stop 02/12/17 at 16:29 Benztropine Mesylate (Cogentin) 1 mg DAILY PO Last administered on 01/28/17t 08 :13; Start 01/14/17 at 09:00; Stop 02/13/17 at 08:59 Fluoxetine HCl (PROzac) 30 mg DAILY PO Last administered on 01/22/17 08:24; Start 01/14/17 at 09:00; Stop 01/23/17 at 08:07; Status DC Fluoxetine HCl (PROzac) 40 mg DAILY PO Last administered on 01/28/17 08:13; Start 01/23/17 at 09:00; Stop 02/22/17 at 08:59 Home Med (Med Rec Complete!) ASDIRECTED XX ; Start 01/13/17 at 17:00; Stop at 17:01; Status DC Magnesium Hydroxide (Milk Of Magnesia) 30 ml DAILYPRN PRN PO CONSTIPATION; Start 01/13/17 at 16:30; Stop 02/12/17 at 16:29 Nicotine (Nicoderm Cq 21mg) 1 patch DAILY TD Last administered on 01/28/17 08: 13; Start 01/14/17 at 09:00; Stop 02/13/17 at 08:59 Olanzapine (ZyPREXA ZYDIS) 5 mg Q4HP PRN PO AGITATION Last administered on 01/22/17 20:40; Start 01/13/17 at 16:30; Stop 01/23/17 at 10:51; Status DC Paliperidone (Invega) 3 mg DAILY PRN PO AUDITORY HALLUCINATIONS; Start 01/23/17 at 11:00; Stop 01/24/17 at 12:08; Status DC Paliperidone (Invega) 3 mg Q8HP PRN PO AUDITORY HALLUCINATIONS Last administered on 01/25/17 20:14; Start 01/24/17 at 09:00; Stop 02/23/17 at 08:59 Paliperidone (Invega) 6 mg BID PO Last administered on 01/23/17 08:53; Start at 09:00; Stop 01/23/17 at 10:51; Status DC Paliperidone (Invega) 6 mg DAILY PO Last administered on 01/24/17 08:40; Start 01/24/17 at 09:00; Stop 01/24/17 at 11:47; Status DC Paliperidone (Invega) 6 mg QHS PO Last administered on 01/14/17 22:11; Start 01/14/17 at 21:00; Stop 01/15/17 at 10:35; Status DC Paliperidone (Invega) 9 mg QHS PO Last administered on 01/20/17 20:21; Start at 21:00; Stop 01/21/17 at 09:18; Status DC Paliperidone (Invega) 9 mg QHS PO Last administered on 01/23/17 20:10; Start at 21:00; Stop 01/24/17 at 11:47; Status DC Paliperidone Palmitate (Invega Sustenna) 156 mg Q30D IM Last administered on 12:09; Start 01/14/17 at 09:00; Stop 01/27/17 at 12:59; Status DC Risperidone (RisperDAL M-TAB) 1.5 mg QHS PO Last administered on 01/27/17 20: 22; Start 01/27/17 at 21:00; Stop 02/26/17 at 20:59 Trazodone HCl (Desyrel) 50 mg QHSP PRN PO INSOMNIA; Start 01/13/17 at 16:30; Stop 02/12/17 at 16:29; Status Cancel Allergies Coded Allergies: Ibuprofen (Verified Allergy, Mild, ITCHING, 09/22/16) Vero Freeman Jan 28, 2017 16:37
[2017-01-28 17:05] LABS: BASO # 0.1 K/mm3 (0.0-0.2); BASO % 1.1 % (0.0-1.0); EOS # 0.5 K/mm3 (0.0-0.50); EOS % 7.1 % (0.0-3.0); LARGE UNSTAINED CELL # 0.2 K/mm3 (0.0-0.4); LARGE UNSTAINED CELL % 2.8 % (0.0-4.0); LYMPH # 2.2 K/mm3 (1.5-4.5); LYMPH % 30.1 % (24.0-44.0); MEAN CORPUSCULAR HEMOGLOBIN 32.2 pg (27.0-33.0); MEAN CORPUSCULAR HGB CONC 34.4 g/dl (32.0-36.5); MEAN CORPUSCULAR VOLUME 93.6 fl (80.0-96.0); MONO # 0.6 K/mm3 (0.0-0.8); NEUTROPHILS # 3.3 K/mm3 (1.8-7.7); NEUTROPHILS % 49.9 % (36.0-66.0); PLATELET COUNT, AUTOMATED 204 k/mm3 (150-450); WHITE BLOOD COUNT 6.5 K/mm3 (4.0-10.0)
[2017-01-28 18:00] VITALS: BP_SYST 114; BP_SYST 126; BP_SYST 127; BP_DIAS 74; BP_DIAS 78
--- NOTE | 2017-01-28 20:40 | ECGEPIP ---
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
[2017-01-28] MEDS: risperiDONE 1 MG M-TAB PO SCH (20:54)
[2017-01-29 06:38] VITALS: BP 163/90
--- NOTE | 2017-01-29 08:48 | MHIPNPDOC ---
[facility] Progress Note Progress Note DATE OF SERVICE: 01/29/17 HISTORY: day 17 of admission related to decompensation of schizophrenia VITAL SIGNS: See below. 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 Will continue to monitor, asymptomatic. CURRENT MEDICATIONS: See below. MENTAL STATUS EXAMINATION: Patient is a 67-year old male, who is tall, thin, wears glasses, needs haircut, clean shaven, dressed in street clothes, good eye contact. Speech: Is spontaneous and clear Language skills are intact Thought processes : linear Thought content: appropriate Abstract reasoning, and computation: good. Description of associations: good. Description of abnormal or psychotic thoughts: denies SI and HI, continues to be plagued by auditory hallucinations 4-5 times a day. They continue for about 30 minutes. Judgment: good. Insight: good. Orientation: x 3 Recent and remote memory: intact Attention span and concentration: adequate Fund of knowledge: Full Mood: "good". Affect: flat. DIAGNOSES: 1. schizoaffective disorder 2. MDD by history 3. RIMA by history ASSESSMENT:today pt reports that voices are less bothersome, less frequent than earlier this week. We are making solid progress. The prolonged QTc has resolved after Invega po stopped. Enc pt to be in room less. Suggested watching football and more walking in [place]. He agreed. He is very pleasant. He still believes he needs long-term treatment but it is likely his stay will not be along one at [facility]. He appears to be less depressed by his personal report so it is likely the increase in Prozac to 40 mg was necessary. No mood instability observed or reported. PO intake has improved. Labs remain a bit elevated for some WBC's but he is asymptomatic. MANAGEMENT PLAN: Pt is on the list for transfer to [facility] on Friday02/04/17. TIME SPENT: 15 minutes. Vital Signs Vital Signs Date Time Temp Pulse Resp B/P (MAP) Pulse Ox O2 Delivery O2 Flow Rate FiO2 01/29/17 06:38 98.7 56 16 163/90 (114) Room Air Laboratory Data 24H Labs Laboratory Tests 2 01/28/17 16:51: White Blood Count 6.5, Red Blood Count 4.35, Hemoglobin 14.0, Hematocrit 40.7L, Mean Corpuscular Volume 93.6, Mean Corpuscular Hemoglobin 32.2, Mean Corpuscular Hemoglobin Concent 34.4, Red Cell Distribution Width 13.0, Platelet Count 204, Neutrophils (%) (Auto) 49.9, Lymphocytes (%) (Auto) 30.1, Monocytes ( %) (Auto) 9.0H, Eosinophils (%) (Auto) 7.1H, Basophils (%) (Auto) 1.1H, Neutrophils # (Auto) 3.3, Lymphocytes # (Auto) 2.2, Monocytes # (Auto) 0.6, Eosinophils # (Auto) 0.5, Basophils # (Auto) 0.1, Large Unclassified Cells % 2.8 , Large Unclassified Cells # 0.2 CBC/BMP Laboratory Tests 01/28/17 16:51 Red Blood Count 4.35, Mean Corpuscular Volume 93.6, Mean Corpuscular Hemoglobin 32.2, Mean Corpuscular Hemoglobin Concent 34.4, Red Cell Distribution Width 13.0 , Neutrophils (%) (Auto) 49.9, Lymphocytes (%) (Auto) 30.1, Monocytes (%) (Auto ) 9.0 H, Eosinophils (%) (Auto) 7.1 H, Basophils (%) (Auto) 1.1 H, Neutrophils # (Auto) 3.3, Lymphocytes # (Auto) 2.2, Monocytes # (Auto) 0.6, Eosinophils # ( Auto) 0.5, Basophils # (Auto) 0.1 Current Medications Current Medications Al Hydrox/Mg Hydrox/Simethicone (Mylanta) 30 ml Q4HP PRN PO HEARTBURN/ INDIGESTION; Start 01/13/17 at 16:30; Stop 02/12/17 at 16:29 Benztropine Mesylate (Cogentin) 1 mg DAILY PO Last administered on 01/28/17 08 :13; Start 01/14/17 at 09:00; Stop 02/13/17 at 08:59 Fluoxetine HCl (PROzac) 30 mg DAILY PO Last administered on 01/22/17 08:24; Start 01/14/17 at 09:00; Stop 01/23/17 at 08:07; Status DC Fluoxetine HCl (PROzac) 40 mg DAILY PO Last administered on 01/28/17 08:13; Start 01/23/17 at 09:00; Stop 02/22/17 at 08:59 Home Med (Med Rec Complete!) ASDIRECTED XX ; Start 01/13/17 at 17:00; Stop at 17:01; Status DC Magnesium Hydroxide (Milk Of Magnesia) 30 ml DAILYPRN PRN PO CONSTIPATION; Start 01/13/17 at 16:30; Stop 02/12/17 at 16:29 Nicotine (Nicoderm Cq 21mg) 1 patch DAILY TD Last administered on 01/28/17 08: 13; Start 01/14/17 at 09:00; Stop 02/13/17 at 08:59 Olanzapine (ZyPREXA ZYDIS) 5 mg Q4HP PRN PO AGITATION Last administered on 01/22/17 20:40; Start 01/13/17 at 16:30; Stop 01/23/17 at 10:51; Status DC Paliperidone (Invega) 3 mg DAILY PRN PO AUDITORY HALLUCINATIONS; Start 01/23/17 at 11:00; Stop 01/24/17 at 12:08; Status DC Paliperidone (Invega) 3 mg Q8HP PRN PO AUDITORY HALLUCINATIONS Last administered on 01/25/17 20:14; Start 01/24/17 at 09:00; Stop 02/23/17 at 08:59 Paliperidone (Invega) 6 mg BID PO Last administered on 01/23/17 08:53; Start at 09:00; Stop 01/23/17 at 10:51; Status DC Paliperidone (Invega) 6 mg DAILY PO Last administered on 01/24/17 08:40; Start 01/24/17 at 09:00; Stop 01/24/17 at 11:47; Status DC Paliperidone (Invega) 6 mg QHS PO Last administered on 01/14/17 22:11; Start 01/14/17 at 21:00; Stop 01/15/17 at 10:35; Status DC Paliperidone (Invega) 9 mg QHS PO Last administered on 01/20/17 20:21; Start at 21:00; Stop 01/21/17 at 09:18; Status DC Paliperidone (Invega) 9 mg QHS PO Last administered on 01/23/17 20:10; Start at 21:00; Stop 01/24/17 at 11:47; Status DC Paliperidone Palmitate (Invega Sustenna) 156 mg Q30D IM Last administered on 12:09; Start 01/14/17 at 09:00; Stop 01/27/17 at 12:59; Status DC Risperidone (RisperDAL M-TAB) 1.5 mg QHS PO Last administered on 01/28/17 20: 54; Start 01/27/17 at 21:00; Stop 02/26/17 at 20:59 Trazodone HCl (Desyrel) 50 mg QHSP PRN PO INSOMNIA; Start 01/13/17 at 16:30; Stop 02/12/17 at 16:29; Status Cancel Allergies Coded Allergies: Ibuprofen (Verified Allergy, Mild, ITCHING, 09/22/16) Vero Freeman Jan 29, 2017 08:48
[2017-01-29] MEDS: FLUoxetine 20 MG CAP PO SCH (09:23)
[2017-01-29] MEDS: NICOTINE 21MG/24HR 1 EA TRANSDERMAL TD SCH (09:24)
[2017-01-29] MEDS: BENZTROPINE 1 MG TAB PO SCH (09:24)
[2017-01-29 18:00] VITALS: BP 141/86
[2017-01-29] MEDS: risperiDONE 1 MG M-TAB PO SCH (20:21)
[2017-01-29] MEDS: PALIPERIDONE 3 MG ER TAB (INVEGA) PO PRN (20:23)
[2017-01-30 06:34] VITALS: BP 151/86
--- NOTE | 2017-01-30 08:44 | MHIPNPDOC ---
[facility] Progress Note Progress Note DATE OF SERVICE: 01/30/17 HISTORY: day 18 of admission for decompensation of schizophrenia and auditory hallucinations VITAL SIGNS: See below. NEW TEST RESULTS: na CURRENT MEDICATIONS: See below. MENTAL STATUS EXAMINATION: Patient is a 67-year old male, who is tall, thin, wears glasses, needs haircut, clean shaven, dressed in street clothes, good eye contact. Speech: Is spontaneous and clear Language skills are intact Thought processes : linear Thought content: appropriate Abstract reasoning, and computation: good. Description of associations: good. Description of abnormal or psychotic thoughts: denies SI and HI, continues to be plagued by auditory hallucinations 4-5 times a day. They continue for about 30 minutes. Judgment: good. Insight: good. Orientation: x 3 Recent and remote memory: intact Attention span and concentration: adequate Fund of knowledge: Full Mood: "good". Affect: flat. DIAGNOSES: 1. schizoaffective disorder 2. MDD by history 3. RIMA by history ASSESSMENT:pt requested lower dose of nicotine patch which was provided. Support for smoking cessation rendered and reinforced RN's teaching. Pt participated in treatment planning. he is aware that his transfer to [facility] is scheduled for Sunday 02/04. He reports decreased frequency in voices and adds "on Friday they were telling me they were going to kill me but they are not doing that now". Pt states he thinks the voices are less bothersome and right now they are more mumbled sounding than actual words. Pt encouraged by several staff to spend less time in room. Talked about football schedule. he is also spending more time walking on the unit. MANAGEMENT PLAN: continue meds, obs and enc out of room TIME SPENT: 15 minutes. Vital Signs Vital Signs Date Time Temp Pulse Resp B/P (MAP) Pulse Ox O2 Delivery O2 Flow Rate FiO2 01/30/17 06:34 98.2 56 20 151/86 (107) 01/29/17 06:38 Room Air Current Medications Current Medications Al Hydrox/Mg Hydrox/Simethicone (Mylanta) 30 ml Q4HP PRN PO HEARTBURN/ INDIGESTION; Start 01/13/17 at 16:30; Stop 02/12/17 at 16:29 Benztropine Mesylate (Cogentin) 1 mg DAILY PO Last administered on 01/29/17 09 :24; Start 01/14/17 at 09:00; Stop 02/13/17 at 08:59 Fluoxetine HCl (PROzac) 30 mg DAILY PO Last administered on 01/22/17 08:24; Start 01/14/17 at 09:00; Stop 01/23/17 at 08:07; Status DC Fluoxetine HCl (PROzac) 40 mg DAILY PO Last administered on 01/29/17 09:23; Start 01/23/17 at 09:00; Stop 02/22/17 at 08:59 Home Med (Med Rec Complete!) ASDIRECTED XX ; Start 01/13/17 at 17:00; Stop at 17:01; Status DC Magnesium Hydroxide (Milk Of Magnesia) 30 ml DAILYPRN PRN PO CONSTIPATION; Start 01/13/17 at 16:30; Stop 02/12/17 at 16:29 Nicotine (Nicoderm Cq 21mg) 1 patch DAILY TD Last administered on 01/29/17 09: 24; Start 01/14/17 at 09:00; Stop 02/13/17 at 08:59 Olanzapine (ZyPREXA ZYDIS) 5 mg Q4HP PRN PO AGITATION Last administered on 01/22/17 20:40; Start 01/13/17 at 16:30; Stop 01/23/17 at 10:51; Status DC Paliperidone (Invega) 3 mg DAILY PRN PO AUDITORY HALLUCINATIONS; Start 01/23/17 at 11:00; Stop 01/24/17 at 12:08; Status DC Paliperidone (Invega) 3 mg Q8HP PRN PO AUDITORY HALLUCINATIONS Last administered on 01/29/17 20:23; Start 01/24/17 at 09:00; Stop 02/23/17 at 08:59 Paliperidone (Invega) 6 mg BID PO Last administered on 01/23/17 08:53; Start at 09:00; Stop 01/23/17 at 10:51; Status DC Paliperidone (Invega) 6 mg DAILY PO Last administered on 01/24/17 08:40; Start 01/24/17 at 09:00; Stop 01/24/17 at 11:47; Status DC Paliperidone (Invega) 6 mg QHS PO Last administered on 01/14/17 22:11; Start 01/14/17 at 21:00; Stop 01/15/17 at 10:35; Status DC Paliperidone (Invega) 9 mg QHS PO Last administered on 01/20/17 20:21; Start at 21:00; Stop 01/21/17 at 09:18; Status DC Paliperidone (Invega) 9 mg QHS PO Last administered on 01/23/17 20:10; Start at 21:00; Stop 01/24/17 at 11:47; Status DC Paliperidone Palmitate (Invega Sustenna) 156 mg Q30D IM Last administered on 12:09; Start 01/14/17 at 09:00; Stop 01/27/17 at 12:59; Status DC Risperidone (RisperDAL M-TAB) 1.5 mg QHS PO Last administered on 01/29/17 20: 21; Start 01/27/17 at 21:00; Stop 02/26/17 at 20:59 Trazodone HCl (Desyrel) 50 mg QHSP PRN PO INSOMNIA; Start 01/13/17 at 16:30; Stop 02/12/17 at 16:29; Status Cancel Allergies Coded Allergies: Ibuprofen (Verified Allergy, Mild, ITCHING, 09/22/16) Vero Freeman Jan 30, 2017 08:44
[2017-01-30] MEDS: FLUoxetine 20 MG CAP PO SCH (08:47)
[2017-01-30] MEDS: BENZTROPINE 1 MG TAB PO SCH (08:47)
[2017-01-30] MEDS: NICOTINE 14 MG/24 HR TRANSDERMAL TD SCH (09:58)
--- NOTE | 2017-01-30 11:38 | MHIPNPDOC ---
[facility] Progress Note Progress Note DATE OF SERVICE: 01/30/17 HISTORY: . VITAL SIGNS: See below. NEW TEST RESULTS: . CURRENT MEDICATIONS: See below. MENTAL STATUS EXAMINATION: Patient is a -year old male, who is . Speech: Is . Language skills are . Thought processes including: . Thought content: . Abstract reasoning, and computation: . Description of associations: . Description of abnormal or psychotic thoughts: . Judgment: . Insight: [very limited, good, fair. poor]. Orientation: . Recent and remote memory: . Attention span and concentration: . Language: . Fund of knowledge: . Mood: . Affect: . DIAGNOSES: 1. . 2. . 3. . ASSESSMENT: MANAGEMENT PLAN: . TIME SPENT: minutes. Vital Signs Vital Signs Date Time Temp Pulse Resp B/P (MAP) Pulse Ox O2 Delivery O2 Flow Rate FiO2 01/30/17 06:34 98.2 56 20 151/86 (107) 01/29/17 06:38 Room Air Current Medications Current Medications Al Hydrox/Mg Hydrox/Simethicone (Mylanta) 30 ml Q4HP PRN PO HEARTBURN/ INDIGESTION; Start 01/13/17 at 16:30; Stop 02/12/17 at 16:29 Benztropine Mesylate (Cogentin) 1 mg DAILY PO Last administered on 01/30/17 08 :47; Start 01/14/17 at 09:00; Stop 02/13/17 at 08:59 Fluoxetine HCl (PROzac) 30 mg DAILY PO Last administered on 01/22/17 08:24; Start 01/14/17 at 09:00; Stop 01/23/17 at 08:07; Status DC Fluoxetine HCl (PROzac) 40 mg DAILY PO Last administered on 01/30/17 08:47; Start 01/23/17 at 09:00; Stop 02/22/17 at 08:59 Home Med (Med Rec Complete!) ASDIRECTED XX ; Start 01/13/17 at 17:00; Stop at 17:01; Status DC Magnesium Hydroxide (Milk Of Magnesia) 30 ml DAILYPRN PRN PO CONSTIPATION; Start 01/13/17 at 16:30; Stop 02/12/17 at 16:29 Nicotine (Nicoderm Cq 14mg) 1 patch DAILY TD Last administered on 01/30/17 09: 58; Start 01/30/17 at 09:00; Stop 03/01/17 at 08:59 Nicotine (Nicoderm Cq 21mg) 1 patch DAILY TD Last administered on 01/29/17 09: 24; Start 01/14/17 at 09:00; Stop 01/30/17 at 08:43; Status DC Olanzapine (ZyPREXA ZYDIS) 5 mg Q4HP PRN PO AGITATION Last administered on 01/22/17 20:40; Start 01/13/17 at 16:30; Stop 01/23/17 at 10:51; Status DC Paliperidone (Invega) 3 mg DAILY PRN PO AUDITORY HALLUCINATIONS; Start 01/23/17 at 11:00; Stop 01/24/17 at 12:08; Status DC Paliperidone (Invega) 3 mg Q8HP PRN PO AUDITORY HALLUCINATIONS Last administered on 01/29/17 20:23; Start 01/24/17 at 09:00; Stop 02/23/17 at 08:59 Paliperidone (Invega) 6 mg BID PO Last administered on 01/23/17 08:53; Start at 09:00; Stop 01/23/17 at 10:51; Status DC Paliperidone (Invega) 6 mg DAILY PO Last administered on 01/24/17 08:40; Start 01/24/17 at 09:00; Stop 01/24/17 at 11:47; Status DC Paliperidone (Invega) 6 mg QHS PO Last administered on 01/14/17 22:11; Start 01/14/17 at 21:00; Stop 01/15/17 at 10:35; Status DC Paliperidone (Invega) 9 mg QHS PO Last administered on 01/20/17 20:21; Start at 21:00; Stop 01/21/17 at 09:18; Status DC Paliperidone (Invega) 9 mg QHS PO Last administered on 01/23/17 20:10; Start at 21:00; Stop 01/24/17 at 11:47; Status DC Paliperidone Palmitate (Invega Sustenna) 156 mg Q30D IM Last administered on 12:09; Start 01/14/17 at 09:00; Stop 01/27/17 at 12:59; Status DC Risperidone (RisperDAL M-TAB) 1.5 mg QHS PO Last administered on 01/29/17t 20: 21; Start 01/27/17 at 21:00; Stop 02/26/17 at 20:59 Trazodone HCl (Desyrel) 50 mg QHSP PRN PO INSOMNIA; Start 01/13/17 at 16:30; Stop 02/12/17 at 16:29; Status Cancel Allergies Coded Allergies: Ibuprofen (Verified Allergy, Mild, ITCHING, 09/22/16) Vero Freeman Jan 30, 2017 11:38
[2017-01-30 18:00] VITALS: BP_SYST 120; BP_SYST 128; BP_SYST 132; BP_SYST 135; BP_DIAS 71; BP_DIAS 74; BP_DIAS 82
[2017-01-30] MEDS: risperiDONE 1 MG M-TAB PO SCH (20:13)
[2017-01-30] MEDS: PALIPERIDONE 3 MG ER TAB (INVEGA) PO PRN (20:13)
[2017-01-31 06:40] VITALS: BP 131/82
[2017-01-31] MEDS: BENZTROPINE 1 MG TAB PO SCH (08:42)
[2017-01-31] MEDS: FLUoxetine 20 MG CAP PO SCH (08:42)
[2017-01-31] MEDS: NICOTINE 14 MG/24 HR TRANSDERMAL TD SCH (08:43)
--- NOTE | 2017-01-31 09:13 | MHIPNPDOC ---
[facility] Progress Note Progress Note DATE OF SERVICE: 01/31/17 HISTORY: day of admission for decompensation related to schizophrenia. VITAL SIGNS: See below. NEW TEST RESULTS: na CURRENT MEDICATIONS: See below. MENTAL STATUS EXAMINATION: Patient is a 67-year old male, who is tall, thin, wears glasses, needs haircut, clean shaven, dressed in street clothes, good eye contact. Speech: Is spontaneous and clear Language skills are intact Thought processes : linear Thought content: appropriate Abstract reasoning, and computation: good. Description of associations: good. Description of abnormal or psychotic thoughts: denies SI and HI. Judgment: good. Insight: good. Orientation: x 3 Recent and remote memory: intact Attention span and concentration: adequate Fund of knowledge: Full Mood: "good". Affect: flat. DIAGNOSES: 1. schizoaffective disorder 2. MDD by history 3. RIMA by history ASSESSMENT:Pt is a bit more animated today. He says the voices are really bothering him again. He will likely do much better after his 3red injection next week. Is out of room a bit more. Mood is pleasant. he shaved today. reports adequate sleep. has an appetite. Tries to keep busy. No behavior challenges. Gets along with room mate. MANAGEMENT PLAN: increase risperidone at hs. continue close obs, enc out of room pt is scheduled for transfer on Friday02/04/17. TIME SPENT: 15 minutes. Vital Signs Vital Signs Date Time Temp Pulse Resp B/P (MAP) Pulse Ox O2 Delivery O2 Flow Rate FiO2 01/31/17 06:40 98.5 59 16 131/82 (98) 01/29/17 06:38 Room Air Current Medications Current Medications Al Hydrox/Mg Hydrox/Simethicone (Mylanta) 30 ml Q4HP PRN PO HEARTBURN/ INDIGESTION; Start 01/13/17 at 16:30; Stop 02/12/17 at 16:29 Benztropine Mesylate (Cogentin) 1 mg DAILY PO Last administered on 01/31/17 08 :42; Start 01/14/17 at 09:00; Stop 02/13/17 at 08:59 Fluoxetine HCl (PROzac) 30 mg DAILY PO Last administered on 01/22/17 08:24; Start 01/14/17 at 09:00; Stop 01/23/17 at 08:07; Status DC Fluoxetine HCl (PROzac) 40 mg DAILY PO Last administered on 01/31/17 08:42; Start 01/23/17 at 09:00; Stop 02/22/17 at 08:59 Home Med (Med Rec Complete!) ASDIRECTED XX ; Start 01/13/17 at 17:00; Stop at 17:01; Status DC Magnesium Hydroxide (Milk Of Magnesia) 30 ml DAILYPRN PRN PO CONSTIPATION; Start 01/13/17 at 16:30; Stop 02/12/17 at 16:29 Nicotine (Nicoderm Cq 14mg) 1 patch DAILY TD Last administered on 01/31/17 08: 43; Start 01/30/17 at 09:00; Stop 03/01/17 at 08:59 Nicotine (Nicoderm Cq 21mg) 1 patch DAILY TD Last administered on 01/29/17 09: 24; Start 01/14/17 at 09:00; Stop 01/30/17 at 08:43; Status DC Olanzapine (ZyPREXA ZYDIS) 5 mg Q4HP PRN PO AGITATION Last administered on 01/22/17 20:40; Start 01/13/17 at 16:30; Stop 01/23/17 at 10:51; Status DC Paliperidone (Invega) 3 mg DAILY PRN PO AUDITORY HALLUCINATIONS; Start 01/23/17 at 11:00; Stop 01/24/17 at 12:08; Status DC Paliperidone (Invega) 3 mg Q8HP PRN PO AUDITORY HALLUCINATIONS Last administered on 01/30/17 20:13; Start 01/24/17 at 09:00; Stop 02/23/17 at 08:59 Paliperidone (Invega) 6 mg BID PO Last administered on 01/23/17 08:53; Start at 09:00; Stop 01/23/17 at 10:51; Status DC Paliperidone (Invega) 6 mg DAILY PO Last administered on 01/24/17 08:40; Start 01/24/17 at 09:00; Stop 01/24/17 at 11:47; Status DC Paliperidone (Invega) 6 mg QHS PO Last administered on 01/14/17 22:11; Start 01/14/17 at 21:00; Stop 01/15/17 at 10:35; Status DC Paliperidone (Invega) 9 mg QHS PO Last administered on 01/20/17 20:21; Start at 21:00; Stop 01/21/17 at 09:18; Status DC Paliperidone (Invega) 9 mg QHS PO Last administered on 01/23/17 20:10; Start at 21:00; Stop 01/24/17 at 11:47; Status DC Paliperidone Palmitate (Invega Sustenna) 156 mg Q30D IM Last administered on 12:09; Start 01/14/17 at 09:00; Stop 01/27/17 at 12:59; Status DC Risperidone (RisperDAL M-TAB) 1.5 mg QHS PO Last administered on 01/30/17 20: 13; Start 01/27/17 at 21:00; Stop 02/26/17 at 20:59 Trazodone HCl (Desyrel) 50 mg QHSP PRN PO INSOMNIA; Start 01/13/17 at 16:30; Stop 02/12/17 at 16:29; Status Cancel Allergies Coded Allergies: Ibuprofen (Verified Allergy, Mild, ITCHING, 09/22/16) Vero Freeman Jan 31, 2017 09:13
[2017-01-31 18:00] VITALS: BP 132/72
[2017-01-31] MEDS: risperiDONE 1 MG M-TAB PO SCH (20:06)
[2017-02-01 06:50] VITALS: BP 154/81
[2017-02-01] MEDS: BENZTROPINE 1 MG TAB PO SCH (08:06)
[2017-02-01] MEDS: FLUoxetine 20 MG CAP PO SCH (08:06)
[2017-02-01] MEDS: NICOTINE 14 MG/24 HR TRANSDERMAL TD SCH (08:06)
[2017-02-01 18:00] VITALS: BP 132/68
[2017-02-01] MEDS: risperiDONE 1 MG M-TAB PO SCH (20:12)
[2017-02-02 06:55] VITALS: BP 151/87
[2017-02-02] MEDS: FLUoxetine 20 MG CAP PO SCH (08:31)
[2017-02-02] MEDS: NICOTINE 14 MG/24 HR TRANSDERMAL TD SCH (08:31)
[2017-02-02] MEDS: BENZTROPINE 1 MG TAB PO SCH (08:31)
[2017-02-02 18:00] VITALS: BP 142/79
[2017-02-02] MEDS: risperiDONE 1 MG M-TAB PO SCH (20:33)
[2017-02-03 06:00] VITALS: BP 138/73
[2017-02-03] MEDS: NICOTINE 14 MG/24 HR TRANSDERMAL TD SCH (08:16)
[2017-02-03] MEDS: BENZTROPINE 1 MG TAB PO SCH (08:17)
[2017-02-03] MEDS: FLUoxetine 20 MG CAP PO SCH (08:17)
--- NOTE | 2017-02-03 10:16 | MHIPNPDOC ---
[facility] Progress Note Progress Note DATE OF SERVICE: 02/03/17 HISTORY: day of admission for decompensation with schizophrenia VITAL SIGNS: See below. NEW TEST RESULTS: na. CURRENT MEDICATIONS: See below. MENTAL STATUS EXAMINATION: Patient is a 67-year old male, who is tall, thin, wears glasses, needs haircut, clean shaven, dressed in street clothes, good eye contact. Speech: Is spontaneous and clear Language skills are intact Thought processes : linear Thought content: appropriate Abstract reasoning, and computation: good. Description of associations: good. Description of abnormal or psychotic thoughts: denies SI and HI. Judgment: good. Insight: good. Orientation: x 3 Recent and remote memory: intact Attention span and concentration: adequate Fund of knowledge: Full Mood: "good". Affect: flat. DIAGNOSES: 1. schizoaffective disorder 2. MDD by history 3. RIMA by history ASSESSMENT:pt had an okay weekend. resting in bed this a.m. Attending some programming in the morning and then rested again in afternoon. He tells me that the voices are quite a bit less now and they are not saying they will harm him. He says it is better, however he reports lingering depression. Prozac increased from 30 mg to 40 after admission. will discuss adding wellbutrin for augmentation and see if he agrees. Pt watched football in [place] over the weekend and states he enjoyed this. MANAGEMENT PLAN: discuss Wellbutrin as augmentation for this pt. voices are improving. continue observation and medications. support oob and peer activity. plan is for discharge in a.m. to [facility]. TIME SPENT: 15 minutes. Vital Signs Vital Signs Date Time Temp Pulse Resp B/P (MAP) Pulse Ox O2 Delivery O2 Flow Rate FiO2 02/03/17 06:00 98.4 60 16 138/73 (94) 02/02/17 06:55 Room Air Current Medications Current Medications Al Hydrox/Mg Hydrox/Simethicone (Mylanta) 30 ml Q4HP PRN PO HEARTBURN/ INDIGESTION; Start 01/13/17 at 16:30; Stop 02/12/17 at 16:29 Benztropine Mesylate (Cogentin) 1 mg DAILY PO Last administered on 02/03/17t 08 :17; Start 01/14/17 at 09:00; Stop 02/13/17 at 08:59 Fluoxetine HCl (PROzac) 30 mg DAILY PO Last administered on 01/22/17 08:24; Start 01/14/17 at 09:00; Stop 01/23/17 at 08:07; Status DC Fluoxetine HCl (PROzac) 40 mg DAILY PO Last administered on 02/03/17 08:17; Start 01/23/17 at 09:00; Stop 02/22/17 at 08:59 Home Med (Med Rec Complete!) ASDIRECTED XX ; Start 01/13/17 at 17:00; Stop at 17:01; Status DC Magnesium Hydroxide (Milk Of Magnesia) 30 ml DAILYPRN PRN PO CONSTIPATION; Start 01/13/17 at 16:30; Stop 02/12/17 at 16:29 Nicotine (Nicoderm Cq 14mg) 1 patch DAILY TD Last administered on 02/03/17 08: 16; Start 01/30/17 at 09:00; Stop 03/01/17 at 08:59 Nicotine (Nicoderm Cq 21mg) 1 patch DAILY TD Last administered on 01/29/17 09: 24; Start 01/14/17 at 09:00; Stop 01/30/17 at 08:43; Status DC Olanzapine (ZyPREXA ZYDIS) 5 mg Q4HP PRN PO AGITATION Last administered on 01/22/17 20:40; Start 01/13/17 at 16:30; Stop 01/23/17 at 10:51; Status DC Paliperidone (Invega) 3 mg DAILY PRN PO AUDITORY HALLUCINATIONS; Start 01/23/17 at 11:00; Stop 01/24/17 at 12:08; Status DC Paliperidone (Invega) 3 mg Q8HP PRN PO AUDITORY HALLUCINATIONS Last administered on 01/30/17 20:13; Start 01/24/17 at 09:00; Stop 02/23/17 at 08:59 Paliperidone (Invega) 6 mg BID PO Last administered on 01/23/17 08:53; Start at 09:00; Stop 01/23/17 at 10:51; Status DC Paliperidone (Invega) 6 mg DAILY PO Last administered on 01/24/17 08:40; Start 01/24/17 at 09:00; Stop 01/24/17 at 11:47; Status DC Paliperidone (Invega) 6 mg QHS PO Last administered on 01/14/17 22:11; Start 01/14/17 at 21:00; Stop 01/15/17 at 10:35; Status DC Paliperidone (Invega) 9 mg QHS PO Last administered on 01/20/17 20:21; Start at 21:00; Stop 01/21/17 at 09:18; Status DC Paliperidone (Invega) 9 mg QHS PO Last administered on 01/23/17 20:10; Start at 21:00; Stop 01/24/17 at 11:47; Status DC Paliperidone Palmitate (Invega Sustenna) 156 mg Q30D IM Last administered on 12:09; Start 01/14/17 at 09:00; Stop 01/27/17 at 12:59; Status DC Risperidone (RisperDAL M-TAB) 1.5 mg QHS PO Last administered on 02/02/17 20: 33; Start 01/27/17 at 21:00; Stop 02/26/17 at 20:59 Trazodone HCl (Desyrel) 50 mg QHSP PRN PO INSOMNIA; Start 01/13/17 at 16:30; Stop 02/12/17 at 16:29; Status Cancel Allergies Coded Allergies: Ibuprofen (Verified Allergy, Mild, ITCHING, 09/22/16) Vero Freeman Feb 03, 2017 10:16
[2017-02-03 18:00] VITALS: BP 115/74
[2017-02-03] MEDS: risperiDONE 1 MG M-TAB PO SCH (20:02)
[2017-02-03] MEDS: PALIPERIDONE 3 MG ER TAB (INVEGA) PO PRN (20:02)
[2017-02-04 06:00] VITALS: BP 135/71
[2017-02-04] MEDS ORDERED: BENZ-52 PO (08:16)
[2017-02-04] MEDS ORDERED: NICO14PA TD (08:16)
[2017-02-04] MEDS ORDERED: INVE156I IM (08:16)
[2017-02-04] MEDS ORDERED: PALI1TAB2 PO (08:16)
[2017-02-04] MEDS ORDERED: RISP-4 PO (08:16)
[2017-02-04] MEDS ORDERED: FLUO20CA19 PO (08:16)
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
[2017-02-04] MEDS: BENZTROPINE 1 MG TAB PO SCH (08:57)
[2017-02-04] MEDS: NICOTINE 14 MG/24 HR TRANSDERMAL TD SCH (08:58)
[2017-02-04] MEDS: FLUoxetine 20 MG CAP PO SCH (08:58)
[2017-02-06] MEDS ORDERED: PALIPERIDONE PALMITATE 156 MG/1ML INJ(INVEGA SUSTENNA)(J2426) IM ONE (13:00)
== END 2017-02-04 11:30 | DRG 885 ==
LOC: M ED 13:50 → M ED INP 16:21 → M PSY 17:33 → UNDODISIN 02-04 11:30
PROVIDERS: ADMIT Psychiatry & Neurology Psychiatry; ATTEND Psychiatry & Neurology Psychiatry
DX: F20.9 Schizophrenia, unspecified (principal); F17.210 Nicotine dependence, cigarettes, uncomplicated; N40.0 Benign prostatic hyperplasia without lower urinary tract symptoms; F10.21 Alcohol dependence, in remission; H91.92 Unspecified hearing loss, left ear; Z96.652 Presence of left artificial knee joint; F41.1 Generalized anxiety disorder; F32.9 Major depressive disorder, single episode, unspecified; Z87.442 Personal history of urinary calculi; Z91.5 Personal history of self-harm; Z81.1 Family history of alcohol abuse and dependence; Z81.8 Family history of other mental and behavioral disorders

== ENCOUNTER → 2020-02-01 | Outpatient (CLI) | payer MEDICARE, BC ==
[~2020-02-01] MED LIST changes: -/WARF25TA PO; -ACET50TA PO; +COUM1TAB18 PO; -EFFE150C PO; +EFFE150C2 PO; +EFFE37.5 PO; -EFFE37.527 PO; +EFFE75CA2 PO; -EFFE75CA75 PO; +FLOM0.4C39 PO; -FLOM5CAP PO; +FLUO20CA22 PO; -FLUP10TA PO; +FLUP10TA11 PO; +INVE156I IM; +INVE234I IM; -LORA1TAB12 PO; +LORA1TAB4 PO; +MAPA500T17 PO; +NICO14PA TD; +NICO21DI3 TD; -NICO21PAT TD; +PALI1TAB2 PO; +RISP-4 PO; +TRAZ-252 PO; -TRAZ50TA11 PO; +VITMTA PO
--- NOTE | 2020-02-18 08:13 | REP ---
BILATERAL LOWER EXTREMITY ARTERIAL DOPPLER ULTRASOUND HISTORY: Unspecified atherosclerosis. Peripheral vascular disease. FINDINGS: Ankle brachial indices are normal measured at 1.06 on the right and 1.08 on the left. There is mild plaquing bilaterally. Predominantly normal triphasic waveforms are noted. Monophasic waveform is observed in the profunda femoral artery on the left with normal velocity. No high-grade stenosis or occlusion is seen on either side. VELOCITY CHART BILATERAL LOWER EXTREMITIES RIGHT (cm/s) LEFT (cm/s) SOUND RANGING CREWMEMBER 98 86 Profunda 50 74 Proximal SFA 78 82 Mid SFA 86 60 Distal SFA 70 55 Popliteal 30 43 Proximal SHEEBA 66 84 Tibioperoneal trunk 54 44 Proximal JACK STRIP ASSEMBLER 37 39 Distal JACK STRIP ASSEMBLER 38 57 Distal SHEEBA 41 30 MTDD
== END ==
LOC: M RAD 11:35
PROVIDERS: ATTEND Physician Assistant
DX: I70.203 Unspecified atherosclerosis of native arteries of extremities, bilateral legs (principal); F17.210 Nicotine dependence, cigarettes, uncomplicated; M79.604 Pain in right leg; M79.605 Pain in left leg; R09.89 Other specified symptoms and signs involving the circulatory and respiratory systems

== ENCOUNTER → 2020-11-21 | Outpatient (CLI) | payer MEDICARE, BC ==
--- NOTE | 2020-11-21 13:16 | REP ---
INDICATION: SPONDYLOSIS, LBP, PARESTHESIA OF SKIN. COMPARISON: None. TECHNIQUE: Helical scanning is acquired and 4 mm axial images re-formatted. Coronal and sagittal MPR images are generated. FINDINGS: There is slight straightening of the normal lumbar lordosis. Lumbar vertebral body heights are preserved. There is a mild dextroconvex curvature in the lumbar spine on coronal re-formation images and adjunct professor view. Mild vascular calcification is observed. There is an intrarenal calculus in the lower pole the right kidney measuring 6 mm. No hydronephrosis is seen. There is a tiny intrarenal calculus in the lower pole left kidney. Normal caliber aorta. Axial and sagittal images at the L1-L2 demonstrate degenerative disc narrowing at the L1-2 level. There is minimal diffuse disc bulging. No central canal stenosis is seen. Facets are unremarkable. There is a large left anterolateral disc bulge or protrusion with associated osteophyte formation on the left at L1-2. At L2-L3, there is degenerative disc narrowing with vacuum phenomena. There is diffuse disc bulging flattening the ventral margin of the thecal sac. The thecal sac has a triangular configuration at L2-3 borderline canal size. There is left-sided neural foraminal narrowing due to disc bulging and facet hypertrophy. There is mild bilateral facet hypertrophy. At L3-L4, there is mild diffuse disc bulging. Mild ligamentum flavum and facet hypertrophy is present. Canal size is borderline. No bony neural foraminal narrowing is seen. At L4-L5, there is degenerative disc narrowing and a vacuum phenomena is seen. There is mild diffuse disc bulging. Mild facet hypertrophy is noted. No central canal stenosis is seen. No bony neural foraminal narrowing is seen. At L5-S1, there is a moderate left paracentral focal disc protrusion with associated spurring and disc calcification. This indents the left ventral margin of the thecal sac. There is moderate left-sided neural foraminal narrowing at L5-S1 due to discogenic spurring and some facet hypertrophy. There is moderate facet hypertrophy bilaterally at L5-S1. IMPRESSION: Degenerative spondylosis changes. Left-sided neural foraminal narrowing at L5-S1, borderline canal size at L2-3 and L3-4. Large left anterolateral disc protrusion with associated spurring at L1-2. Mild scoliosis. <Electronically signed by Ed Montoya > 11/21/20 [id number]
== END ==
LOC: M PLAIMG 10:22
PROVIDERS: ATTEND Psychiatry & Neurology Neurology
DX: M43.06 Spondylolysis, lumbar region (principal); M54.5 Low back pain; R20.2 Paresthesia of skin

== ENCOUNTER 2024-01-08 23:30 | Inpatient (IN) | payer MEDICARE ==
[~2024-01-08] VITALS: Ht 182.9 cm; Wt 116.9 kg
[~2024-01-08 23:30] MED LIST changes: -BENZ-52 PO; +BENZ1TAB5 PO; +BENZ2TAB48 PO; -BENZ2TAB5 PO; -CLOZ25TA3 PO; +CLOZ25TA6 PO; -EFFE150C2 PO; +EFFE150C3 PO; -EFFE37.5 PO; +EFFE37.52 PO; +FINA-48 PO; +FLUO-365 PO; -FLUO20CA22 PO; +LORA1TAB23 PO; -LORA1TAB4 PO; -PROS5TAB PO
[2024-01-09] MEDS ORDERED: MAALOX 30 ML SUSP *UDC PO PRN (00:05)
[2024-01-09] MEDS ORDERED: diphenhydrAMINE 25MG CAP PO PRN (00:05)
[2024-01-09] MEDS ORDERED: MOM 30ML SUSPENSION UDC PO PRN (00:05)
[2024-01-09] MEDS ORDERED: NICOTINE 21MG/24HR 1 EA TRANSDERMAL TD PRN (00:05)
[2024-01-09] MEDS ORDERED: OLANZapine ORAL DISINTEGRATING TAB 5MG PO PRN (00:05)
[2024-01-09 02:46] VITALS: BP 147/86; TEMP 97.8; O2SAT 96
[2024-01-09] MEDS ORDERED: TREL1AER INH (13:26)
[2024-01-09] MEDS ORDERED: QUET300T93 PO (13:26)
[2024-01-09] MEDS ORDERED: ALBU8.5H INH (13:26)
[2024-01-09] MEDS ORDERED: DONE10TA90 PO (13:26)
[2024-01-09] MEDS ORDERED: METO1TAB7 PO (13:26)
[2024-01-09] MEDS ORDERED: LOSA25TA13 PO (13:26)
[2024-01-09] MEDS ORDERED: HOME MED LIST COMPLETE! XX SCH (13:30)
[2024-01-09] MEDS: ACETAMINOPHEN TAB 650MG DOSE (2X325MG) PO PRN (14:12)
[2024-01-09] MEDS: FLUoxetine 20MG CAP PO SCH (14:12)
[2024-01-09 18:31] VITALS: BP 156/67; TEMP 97.4; O2SAT 96
[2024-01-09] MEDS ORDERED: PALIPERIDONE 3MG ER TAB (INVEGA) PO SCH (21:00)
[2024-01-09] MEDS: PALIPERIDONE 3MG ER TAB (INVEGA) PO SCH (21:02)
[2024-01-10 05:51] VITALS: BP 170/88; TEMP 97.4; O2SAT 97
[2024-01-10] MEDS: METOPROLOL SUCC (TopROL XL) 50MG **XL** TAB PO SCH (06:14)
[2024-01-10 07:06] LABS: BASO # 0.1 10^3/uL (0.0-0.2); BASO % 1.1 % (0.0-1.0); EOS # 0.5 10^3/uL (0.0-0.5); EOS % 7.8 % (0.0-3.0); HEMATOCRIT 45.2 % (42.0-52.0); HEMOGLOBIN 14.8 g/dl (13.5-17.5); LYMPH # 2.2 10^3/uL (1.5-5.0); LYMPH % 33.5 % (24.0-44.0); MEAN CORPUSCULAR HEMOGLOBIN 31.1 pg (27.0-33.0); MEAN CORPUSCULAR HGB CONC 32.7 g/dl (32.0-36.5); MONO # 0.7 10^3/uL (0.0-0.8); MONO % 10.2 % (2.0-8.0); NEUTROPHILS # 3.1 10^3/uL (1.5-8.5); NEUTROPHILS % 47.2 % (36.0-66.0); PLATELET COUNT, AUTOMATED 183 10^3/uL (150-450); RED BLOOD COUNT 4.76 10^6/uL (4.30-6.10); WHITE BLOOD COUNT 6.6 10^3/uL (4.0-10.0)
[2024-01-10 07:32] LABS: ALBUMIN 3.3 G/DL (3.2-5.2); ALKALINE PHOSPHATASE 143 U/L (46-116); ALT/SGPT 38 U/L (7.0-40); AST/SGOT 19 U/L (<34); BILIRUBIN,TOTAL 0.9 MG/DL (0.3-1.2); BLOOD UREA NITROGEN 18 MG/DL (9-23); CALCIUM LEVEL 8.8 MG/DL (8.3-10.6); CARBON DIOXIDE LEVEL 24 MMOL/L (20-31); CHLORIDE LEVEL 108 MMOL/L (98-107); CHOLESTEROL LEVEL 203 MG/DL (<200); CHOLESTEROL RISK RATIO 7.46 (<5); CREATININE FOR GFR 0.97 MG/DL (0.70-1.30); GLOMERULAR FILTRATION RATE > 60.0 (>42); GLUCOSE, FASTING 96 MG/DL (74-106); HDL CHOLESTEROL 27.2 MG/DL (>40); LDL CHOLESTEROL 124.2 MG/DL (<100); NON-HDL-C 175.8 MG/DL; POTASSIUM SERUM 4.2 MMOL/L (3.5-5.1); SODIUM LEVEL 139 MMOL/L (136-145); TOTAL PROTEIN 6.6 G/DL (5.7-8.2); TRIGLYCERIDES LEVEL 258 MG/DL (<150)
[2024-01-10 07:34] LABS: VITAMIN B12 LEVEL 475 PG/ML (211-911)
[2024-01-10 07:42] LABS: HEMOGLOBIN A1c 5.9 % (4.0-6.0)
[2024-01-10] MEDS: LOSARTAN 25 MG TAB PO SCH (09:54)
[2024-01-10 15:56] VITALS: BP 148/86; TEMP 96.6; O2SAT 100
[2024-01-10] MEDS: traZODone 50 MG TAB PO PRN (21:07)
[2024-01-11 06:25] VITALS: BP 154/78; TEMP 97.8; O2SAT 94
[2024-01-11 16:37] VITALS: BP 149/79; TEMP 97.2; O2SAT 100
[2024-01-11] MEDS: traZODone 100 MG TAB PO PRN (20:55)
[2024-01-12 08:42] VITALS: BP 122/58
[2024-01-12 09:25] VITALS: BP 136/67; TEMP 97.4; O2SAT 94
[2024-01-12 18:33] VITALS: BP 139/89; TEMP 97.6
[2024-01-13 06:10] VITALS: BP 160/69; TEMP 97.6; O2SAT 95
[2024-01-13] MEDS: PALIPERIDONE 6MG ER TAB (INVEGA) PO SCH (09:20)
[2024-01-13 17:39] VITALS: BP 153/68; TEMP 97.5; O2SAT 95
[2024-01-14 08:49] VITALS: BP 140/90
[2024-01-14 16:08] VITALS: BP 138/63; TEMP 87.2
[2024-01-15 06:39] VITALS: BP 130/61; TEMP 96.1; O2SAT 95
[2024-01-15 08:12] LABS: CHOLESTEROL RISK RATIO 7.23 (<5); HDL CHOLESTEROL 30.4 MG/DL (>40); LDL CHOLESTEROL 140.6 MG/DL (<100); NON-HDL-C 189.6 MG/DL
[2024-01-15] MEDS: PALIPERIDONE PAL 234MG/1.5ML INJ (INVEGA)(FREE PSY INPT ONLY) IM ONE (08:33)
[2024-01-15 16:49] VITALS: BP 133/60; TEMP 96.8; O2SAT 95
[2024-01-16 15:54] VITALS: BP 138/80; TEMP 98.2; O2SAT 96
[2024-01-17 06:03] VITALS: BP 161/72; TEMP 96.2; O2SAT 96
[2024-01-17 08:39] VITALS: BP 124/60
[2024-01-17 15:36] VITALS: BP 132/63; TEMP 97.6; O2SAT 95
[2024-01-18 06:26] VITALS: BP 125/77; TEMP 97.8; O2SAT 96
[2024-01-18 09:00] VITALS: BP 125/77; TEMP 97.8; O2SAT 96
[2024-01-18 09:25] VITALS: BP 129/77
[2024-01-18 15:38] VITALS: BP 138/62; TEMP 97.5; O2SAT 97
[2024-01-19 06:41] VITALS: BP 140/60; TEMP 97.3; O2SAT 94
[2024-01-19 15:42] VITALS: BP 136/63; TEMP 97.3; O2SAT 96
[2024-01-20 06:10] VITALS: BP 165/89; TEMP 98; O2SAT 95
[2024-01-20 06:11] VITALS: BP 147/85
[2024-01-20 09:00] VITALS: BP 123/62
[2024-01-20 09:02] VITALS: BP 123/62
[2024-01-20] MEDS ORDERED: BENZ1TAB5 PO (09:13)
[2024-01-20] MEDS ORDERED: METO1TAB7 PO (09:13)
[2024-01-20] MEDS ORDERED: FLUO40CA PO (09:13)
[2024-01-20] MEDS ORDERED: LOSA25TA13 PO (09:13)
[2024-01-20] MEDS ORDERED: INVE234I IM (09:13)
[2024-01-20] MEDS ORDERED: TRAZ-257 PO (09:13)
[2024-01-20] MEDS ORDERED: ALBU8.5H INH (09:13)
[2024-01-20] MEDS: PALIPERIDONE PAL 156MG/1ML INJ(INVEGA)(FREE PSY INPT ONLY) IM ONE (11:24)
== END 2024-01-20 13:36 | disposition home or self-care (01) | DRG 885 ==
LOC: EDBD 23:30 → M ED 23:30 → M ED INP 01-09 00:05 → M PSY 01-09 02:03
PROVIDERS: ADMIT Psychiatry & Neurology Psychiatry; ATTEND Psychiatry & Neurology Psychiatry
DX: F25.9 Schizoaffective disorder, unspecified (principal); Z79.899 Other long term (current) drug therapy; Z88.6 Allergy status to analgesic agent; I25.10 Atherosclerotic heart disease of native coronary artery without angina pectoris; I25.2 Old myocardial infarction; Z96.652 Presence of left artificial knee joint; G89.29 Other chronic pain; M54.9 Dorsalgia, unspecified; Z87.891 Personal history of nicotine dependence

== ENCOUNTER 2024-01-29 20:57 | Inpatient (IN) | payer MEDICARE, OTHER ==
[~2024-01-29] VITALS: Ht 182.9 cm; Wt 116.9 kg
[~2024-01-29 20:57] MED LIST changes: +ALBU8.5H INH; +DONE10TA90 PO; +FLUO40CA PO; +LOSA25TA13 PO; +METO1TAB7 PO; +QUET300T93 PO; +TRAZ-257 PO; +TREL1AER INH
[2024-01-29] MEDS ORDERED: MAALOX 30 ML SUSP *UDC PO PRN (22:45)
[2024-01-29] MEDS ORDERED: MOM 30ML SUSPENSION UDC PO PRN (22:45)
[2024-01-29 23:40] VITALS: BP 160/82; TEMP 97; O2SAT 98
[2024-01-30] MEDS ORDERED: PERMETHRIN 5% CREAM 60 GM TOP SCH
[2024-01-30 06:05] VITALS: BP 162/84; TEMP 97.7; O2SAT 95
[2024-01-30] MEDS ORDERED: TAMS1CAP17 PO (12:07)
[2024-01-30] MEDS ORDERED: TRAZ-257 PO (12:07)
[2024-01-30] MEDS ORDERED: ATOR40TA75 PO (12:07)
[2024-01-30] MEDS ORDERED: FLUO40CA PO (12:07)
[2024-01-30] MEDS ORDERED: BENZ0.5T2 PO (12:07)
[2024-01-30] MEDS ORDERED: VENTAER INH (12:07)
[2024-01-30] MEDS ORDERED: HOME MED LIST COMPLETE! XX SCH (12:10)
[2024-01-30 16:10] VITALS: BP 127/87; TEMP 98.6; O2SAT 95
[2024-01-30] MEDS: PERMETHRIN 5% CREAM 60 GM TOP ONE (19:11)
[2024-01-30] MEDS: PALIPERIDONE 3MG ER TAB (INVEGA) PO SCH (20:23)
[2024-01-31 06:13] VITALS: BP 175/81; TEMP 97.4; O2SAT 96
[2024-01-31 15:59] VITALS: BP 148/82; TEMP 97.6; O2SAT 95
[2024-01-31] MEDS: traZODone 50 MG TAB PO PRN (20:17)
[2024-02-01 06:17] VITALS: BP 146/88
[2024-02-01 15:49] VITALS: BP 141/86; TEMP 97.6; O2SAT 97
[2024-02-01] MEDS: diphenhydrAMINE 25MG CAP PO PRN (16:37)
[2024-02-02 06:19] VITALS: BP 168/78; TEMP 97.1; O2SAT 96
[2024-02-02] MEDS: METOPROLOL SUCC (TopROL XL) 50MG **XL** TAB PO SCH (11:33)
[2024-02-02] MEDS: ATORVASTATIN 20 MG TAB PO SCH (11:33)
[2024-02-02] MEDS: QUEtiapine 300MG XR TABLET (SEROQUEL XR) PO SCH (11:33)
[2024-02-02] MEDS: FLUoxetine 20MG CAP PO SCH (11:33)
[2024-02-02] MEDS: TAMSULOSIN 0.4 MG CAP PO SCH (11:34)
[2024-02-02] MEDS: BENZTROPINE 0.5 MG TAB PO SCH (11:34)
[2024-02-02] MEDS: LOSARTAN 25 MG TAB PO SCH (12:29)
[2024-02-02 14:27] VITALS: BP 142/69; TEMP 98; O2SAT 94
[2024-02-02] MEDS: PALIPERIDONE 6MG ER TAB (INVEGA) PO SCH (20:48)
[2024-02-02] MEDS: SERTRALINE HCL 25 MG TABLET PO SCH (20:48)
[2024-02-03 06:16] VITALS: BP 149/78; TEMP 97.6; O2SAT 97
[2024-02-03] MEDS: ACETAMINOPHEN TAB 650MG DOSE (2X325MG) PO PRN (09:44)
[2024-02-03 16:26] LABS: APPEARANCE, URINE HAZY (CLEAR); BACTERIA, URINE AUTO NEGATIVE (NEGATIVE); BILIRUBIN, URINE AUTO NEGATIVE (NEGATIVE); BLOOD, URINE BLOOD NEGATIVE (NEGATIVE); COLOR, URINE YELLOW (YELLOW); GLUCOSE, URINE (UA) AUTO NEGATIVE (NEGATIVE); KETONE, URINE AUTO TRACE mg/dL (NEGATIVE); LEUKOCYTE ESTERASE, URINE AUTO 3+ (NEGATIVE); MUCUS, URINE SMALL (NEGATIVE); NITRITE, URINE AUTO NEGATIVE (NEGATIVE); PROTEIN, URINE AUTO NEGATIVE (NEGATIVE); RBC, URINE AUTO 0 /HPF (0-3); SPECIFIC GRAVITY URINE AUTO 1.024 (1.002-1.035); SQUAMOUS EPITHELIAL CELL UR AU 1 /HPF (0-6); UROBILINOGEN, URINE AUTO 0.2 mg/dL (0.0-2.0); WBC, URINE AUTO 72 /HPF (0-3)
[2024-02-03 16:47] VITALS: BP 133/72; TEMP 96.4; O2SAT 96
[2024-02-04 06:23] VITALS: BP 140/78; TEMP 97.9; O2SAT 95
[2024-02-04 08:50] VITALS: BP 118/66
[2024-02-04 15:31] VITALS: BP 123/60; TEMP 97.8; O2SAT 95
[2024-02-05 06:40] VITALS: BP_SYST 122; BP_SYST 136; BP_DIAS 70; BP_DIAS 71; TEMP 98; O2SAT 96; O2SAT 99
[2024-02-05 06:54] LABS: BASO # 0.1 10^3/uL (0.0-0.2); EOS # 0.5 10^3/uL (0.0-0.5); EOS % 7.6 % (0.0-3.0); HEMATOCRIT 41.2 % (42.0-52.0); HEMOGLOBIN 13.6 g/dl (13.5-17.5); LYMPH # 2.1 10^3/uL (1.5-5.0); LYMPH % 29.5 % (24.0-44.0); MEAN CORPUSCULAR HEMOGLOBIN 31.5 pg (27.0-33.0); MEAN CORPUSCULAR VOLUME 95.4 fl (80.0-96.0); MONO # 0.8 10^3/uL (0.0-0.8); NEUTROPHILS # 3.6 10^3/uL (1.5-8.5); NEUTROPHILS % 50.8 % (36.0-66.0); PLATELET COUNT, AUTOMATED 240 10^3/uL (150-450); RED BLOOD COUNT 4.32 10^6/uL (4.30-6.10); WHITE BLOOD COUNT 7.1 10^3/uL (4.0-10.0)
[2024-02-05 07:11] LABS: ALBUMIN 3.2 G/DL (3.2-5.2); ALKALINE PHOSPHATASE 122 U/L (46-116); ALT/SGPT 33 U/L (7.0-40); AST/SGOT 17 U/L (<34); BILIRUBIN,TOTAL 0.7 MG/DL (0.3-1.2); BLOOD UREA NITROGEN 18 MG/DL (9-23); CALCIUM LEVEL 8.8 MG/DL (8.3-10.6); CARBON DIOXIDE LEVEL 24 MMOL/L (20-31); CHLORIDE LEVEL 109 MMOL/L (98-107); CREATININE FOR GFR 0.96 MG/DL (0.70-1.30); GLOMERULAR FILTRATION RATE > 60.0 (>42); GLUCOSE, FASTING 99 MG/DL (74-106); POTASSIUM SERUM 4.3 MMOL/L (3.5-5.1); SODIUM LEVEL 138 MMOL/L (136-145); TOTAL PROTEIN 6.3 G/DL (5.7-8.2)
[2024-02-05 09:22] VITALS: BP 141/65
[2024-02-05] MEDS: FLUoxetine 20MG CAP PO SCH (09:26)
[2024-02-05] MEDS ORDERED: TUBERCULIN PPD 5 UNITS/0.1 ML ID ONE (14:30)
[2024-02-05] MEDS: TUBERCULIN PPD 5 UNITS/0.1 ML ID ONE (15:30)
[2024-02-05 16:18] VITALS: BP 133/80; TEMP 97.7; O2SAT 95
[2024-02-05] MEDS: PALIPERIDONE 3MG ER TAB (INVEGA) PO SCH (20:21)
[2024-02-06 06:22] VITALS: BP 125/79; TEMP 97.9; O2SAT 95
[2024-02-06] MEDS: PERMETHRIN 5% CREAM 60 GM TOP ONE (11:37)
[2024-02-06] MEDS: CEFDINIR 300 MG CAP (OMNICEF) PO SCH (12:12)
[2024-02-06 16:22] VITALS: BP 119/64; TEMP 98.7; O2SAT 98
[2024-02-07 06:44] VITALS: BP 145/78; TEMP 97.8; O2SAT 97
[2024-02-07] MEDS ORDERED: PPD DOCUMENTATION ENTRY MISC XX SCH (10:00)
[2024-02-07] MEDS: PPD DOCUMENTATION ENTRY MISC XX ONE (15:20)
[2024-02-07 15:56] VITALS: BP 132/83; TEMP 98.3; O2SAT 94
[2024-02-07 18:12] VITALS: BP 129/83; O2SAT 96
[2024-02-07 18:30] VITALS: TEMP 97.3
[2024-02-07 23:56] VITALS: BP 133/87; TEMP 97.4; O2SAT 95
[2024-02-08 06:25] VITALS: BP 142/88; TEMP 97.8; O2SAT 97
[2024-02-08 16:04] VITALS: BP 110/60; TEMP 98.1; O2SAT 94
[2024-02-09 06:40] VITALS: BP 133/63; TEMP 97.5; O2SAT 96
[2024-02-09 08:06] VITALS: BP 136/76
[2024-02-09 15:55] VITALS: BP 124/66; TEMP 97.2; O2SAT 98
[2024-02-09] MEDS ORDERED: LevoFLOXacin 750 MG TABLET PO ONE (18:00)
[2024-02-09] MEDS: LevoFLOXacin 750 MG TABLET PO SCH (20:42)
[2024-02-10 06:22] VITALS: BP 143/74; TEMP 97.2; O2SAT 96
[2024-02-10 08:59] VITALS: BP 142/74
[2024-02-10] MEDS ORDERED: PALIPERIDONE PAL 234MG/1.5ML INJ (INVEGA)(FREE PSY INPT ONLY) IM ONE (09:00)
[2024-02-10] MEDS: PALIPERIDONE PAL 234MG/1.5ML INJ (INVEGA)(FREE PSY INPT ONLY) IM ONE (12:22)
[2024-02-10 15:52] VITALS: BP 116/64; TEMP 98.7; O2SAT 99
[2024-02-11 06:20] VITALS: BP 158/74; TEMP 97.1; O2SAT 96
[2024-02-11 08:49] VITALS: BP 136/64
[2024-02-11] MEDS: LIDOCAINE 5% (LIDODERM) PATCH TD SCH (12:06)
[2024-02-11 12:40] VITALS: BP 142/68; TEMP 97.6; O2SAT 93
[2024-02-11 14:42] LABS: BASO # 0.1 10^3/uL (0.0-0.2); BASO % 1.2 % (0.0-1.0); EOS # 0.3 10^3/uL (0.0-0.5); EOS % 4.3 % (0.0-3.0); HEMATOCRIT 40.6 % (42.0-52.0); HEMOGLOBIN 13.5 g/dl (13.5-17.5); LYMPH # 2.2 10^3/uL (1.5-5.0); LYMPH % 29.4 % (24.0-44.0); MEAN CORPUSCULAR HEMOGLOBIN 31.7 pg (27.0-33.0); MEAN CORPUSCULAR HGB CONC 33.3 g/dl (32.0-36.5); MEAN CORPUSCULAR VOLUME 95.3 fl (80.0-96.0); MONO # 0.9 10^3/uL (0.0-0.8); MONO % 11.7 % (2.0-8.0); NEUTROPHILS % 53.3 % (36.0-66.0); PLATELET COUNT, AUTOMATED 210 10^3/uL (150-450); RED BLOOD COUNT 4.26 10^6/uL (4.30-6.10); WHITE BLOOD COUNT 7.5 10^3/uL (4.0-10.0)
[2024-02-11 14:42] LABS: ALBUMIN 3.5 G/DL (3.2-5.2); ALKALINE PHOSPHATASE 143 U/L (46-116); ALT/SGPT 27 U/L (7.0-40); AST/SGOT 23 U/L (<34); BILIRUBIN,TOTAL 1.1 MG/DL (0.3-1.2); BLOOD UREA NITROGEN 19 MG/DL (9-23); CARBON DIOXIDE LEVEL 20 MMOL/L (20-31); CHLORIDE LEVEL 109 MMOL/L (98-107); CREATININE FOR GFR 1.07 MG/DL (0.70-1.30); GLOMERULAR FILTRATION RATE > 60.0 (>42); GLUCOSE, FASTING 90 MG/DL (74-106); POTASSIUM SERUM 4.5 MMOL/L (3.5-5.1); SODIUM LEVEL 137 MMOL/L (136-145); TOTAL PROTEIN 6.8 G/DL (5.7-8.2)
[2024-02-11 16:23] VITALS: BP 105/66; TEMP 98.3; O2SAT 92
[2024-02-11 16:47] LABS: BLOOD UREA NITROGEN 18 MG/DL (9-23); CALCIUM LEVEL 8.7 MG/DL (8.3-10.6); CARBON DIOXIDE LEVEL 23 MMOL/L (20-31); CHLORIDE LEVEL 109 MMOL/L (98-107); CREATININE FOR GFR 1.05 MG/DL (0.70-1.30); GLOMERULAR FILTRATION RATE > 60.0 (>42); GLUCOSE, FASTING 106 MG/DL (74-106); POTASSIUM SERUM 3.9 MMOL/L (3.5-5.1); SODIUM LEVEL 137 MMOL/L (136-145)
[2024-02-11 16:59] LABS: PROCALCITONIN <0.04 ng/ml
[2024-02-11] MEDS: MIRALAX *UNIT DOSE* 17GM PACKET PO PRN (18:58)
[2024-02-11] MEDS: SENNA 8.6 MG TAB (SENOKOT) PO PRN (18:58)
[2024-02-12 06:20] VITALS: BP 140/95; TEMP 97.2; O2SAT 98
[2024-02-12 15:21] VITALS: BP 103/58; TEMP 97.8; O2SAT 95
[2024-02-13 06:23] VITALS: BP 118/66; TEMP 98.4; O2SAT 97
[2024-02-13 15:02] VITALS: BP 123/68; TEMP 98.9; O2SAT 95
[2024-02-14 06:30] VITALS: BP 178/92; TEMP 97.5; O2SAT 94
[2024-02-14 09:05] VITALS: BP 117/69
[2024-02-14 14:05] VITALS: BP 164/83; TEMP 97.1; O2SAT 96
[2024-02-14] MEDS: ALBUTEROL 90 MCG/ACT 8GM HFA INHALER INH PRN (15:04)
[2024-02-14 15:20] VITALS: BP 141/66; O2SAT 93
[2024-02-14] MEDS: NORCO, ANEXSIA 5/325MG TABLET (HYDROcodone/ACETAMINOPHEN) PO PRN (17:30)
[2024-02-15 06:03] VITALS: BP 130/70; TEMP 97.5; O2SAT 92
[2024-02-15 08:12] VITALS: BP 118/56
[2024-02-15] MEDS: GABAPENTIN 100 MG CAP PO SCH (08:16)
[2024-02-15 11:28] VITALS: O2SAT 93
[2024-02-15 15:42] VITALS: BP 125/67; TEMP 97.4; O2SAT 94
[2024-02-16 06:00] VITALS: BP 125/84; TEMP 96.9; O2SAT 98
[2024-02-16 08:31] VITALS: BP 114/77
[2024-02-16 14:35] VITALS: BP 121/56; TEMP 98; O2SAT 96
[2024-02-17 06:26] VITALS: BP 130/82; TEMP 96.2; O2SAT 94
[2024-02-17 07:51] VITALS: BP 140/80
[2024-02-17 15:28] VITALS: BP 148/64; TEMP 97.9; O2SAT 96
[2024-02-17] MEDS: GABAPENTIN 100 MG CAP PO SCH (20:47)
[2024-02-18 06:23] VITALS: BP 140/70; TEMP 98.1; O2SAT 96
[2024-02-18 07:44] VITALS: BP 143/65
[2024-02-18] MEDS: GABAPENTIN 100 MG CAP PO SCH (17:19)
[2024-02-18 17:47] VITALS: BP 118/62; TEMP 97.2
[2024-02-19 06:07] VITALS: BP 150/70; TEMP 97.7; O2SAT 96
[2024-02-19 08:39] VITALS: BP 142/87
[2024-02-19] MEDS: NORCO, ANEXSIA 5/325MG TABLET (HYDROcodone/ACETAMINOPHEN) PO PRN (14:57)
[2024-02-19 15:08] VITALS: TEMP 98; O2SAT 95
[2024-02-19 16:42] VITALS: BP 150/76
[2024-02-19 22:39] VITALS: BP 142/92; TEMP 97.6; O2SAT 97
[2024-02-20 03:01] VITALS: BP 180/80; TEMP 100.8; O2SAT 94
[2024-02-20] MEDS: amLODIPine 5 MG TAB PO ONE (03:09)
[2024-02-20] MEDS ORDERED: IPRATROPIUM 0.5MG/ALBUTEROL 2.5MG INH SOL UD 3ML (DUONEB) NEB PRN (03:25)
[2024-02-20 04:08] LABS: BASO # 0.1 10^3/uL (0.0-0.2); BASO % 0.8 % (0.0-1.0); EOS # 0.2 10^3/uL (0.0-0.5); EOS % 2.7 % (0.0-3.0); HEMATOCRIT 40.1 % (42.0-52.0); HEMOGLOBIN 13.6 g/dl (13.5-17.5); LYMPH # 0.8 10^3/uL (1.5-5.0); LYMPH % 10.4 % (24.0-44.0); MEAN CORPUSCULAR HEMOGLOBIN 31.3 pg (27.0-33.0); MEAN CORPUSCULAR HGB CONC 33.9 g/dl (32.0-36.5); MEAN CORPUSCULAR VOLUME 92.2 fl (80.0-96.0); MONO # 0.9 10^3/uL (0.0-0.8); MONO % 11.9 % (2.0-8.0); NEUTROPHILS # 5.4 10^3/uL (1.5-8.5); NEUTROPHILS % 73.9 % (36.0-66.0); PLATELET COUNT, AUTOMATED 153 10^3/uL (150-450); RED BLOOD COUNT 4.35 10^6/uL (4.30-6.10); WHITE BLOOD COUNT 7.3 10^3/uL (4.0-10.0)
[2024-02-20 08:00] VITALS: BP 119/68; O2SAT 93
[2024-02-20] MEDS: predniSONE 20 MG TAB PO SCH (08:01)
[2024-02-20 08:25] VITALS: TEMP 98.1
[2024-02-20 14:51] VITALS: BP 136/80; TEMP 98.7; O2SAT 92
[2024-02-21 07:08] VITALS: BP 131/95; TEMP 98.7; O2SAT 89
[2024-02-21 08:56] VITALS: BP 124/58; TEMP 98.9; O2SAT 91
[2024-02-21] MEDS: predniSONE 20 MG TAB PO SCH (09:16)
[2024-02-21 16:57] VITALS: BP 135/65; TEMP 97.8; O2SAT 92
[2024-02-22 06:54] VITALS: BP 131/90; TEMP 97.5; O2SAT 94
[2024-02-22 08:55] VITALS: BP 92/62; TEMP 98.2; O2SAT 92
[2024-02-22 16:45] VITALS: BP 105/52; TEMP 97.2; O2SAT 92
[2024-02-23 06:04] VITALS: BP 121/61; TEMP 98.3; O2SAT 96
[2024-02-23 09:28] VITALS: BP 113/51
[2024-02-23 15:15] VITALS: BP 144/88; TEMP 98.2; O2SAT 95
[2024-02-24 06:35] VITALS: BP 176/94; TEMP 97.1; O2SAT 90
[2024-02-24] MEDS ORDERED: SENO8.6T5 PO (07:12)
[2024-02-24] MEDS ORDERED: QUET300T93 PO (07:12)
[2024-02-24] MEDS ORDERED: LIDO5TD TD (07:12)
[2024-02-24] MEDS ORDERED: GABA-1171 PO (07:12)
[2024-02-24] MEDS ORDERED: TRAZ-252 PO (07:12)
[2024-02-24] MEDS ORDERED: MIRA33506 PO (07:12)
[2024-02-24] MEDS: COMBIVENT RESPIMAT 100-20MCG INHALER 4GM INH PRN (07:46)
[2024-02-24 09:30] VITALS: BP 143/73
== END 2024-02-24 17:00 | disposition home or self-care (01) | DRG 885 ==
LOC: M ED 20:57 → M ED INP 22:45 → M PSY 23:47
PROVIDERS: ADMIT Psychiatry & Neurology Psychiatry; ATTEND Psychiatry & Neurology Psychiatry
DX: F20.9 Schizophrenia, unspecified (principal); U07.1 COVID-19; N39.0 Urinary tract infection, site not specified; I25.2 Old myocardial infarction; I10 Essential (primary) hypertension; M54.9 Dorsalgia, unspecified; G89.29 Other chronic pain; Z96.652 Presence of left artificial knee joint; N40.0 Benign prostatic hyperplasia without lower urinary tract symptoms; N20.0 Calculus of kidney; I25.10 Atherosclerotic heart disease of native coronary artery without angina pectoris; Z91.51 Personal history of suicidal behavior; Z79.899 Other long term (current) drug therapy; Z87.891 Personal history of nicotine dependence; Z88.6 Allergy status to analgesic agent

== ENCOUNTER 2024-03-11 05:18 | Inpatient (IN) | payer MEDICARE ==
[~2024-03-11] VITALS: Ht 182.9 cm; Wt 113.9 kg
[~2024-03-11 05:18] MED LIST changes: +ATOR40TA75 PO; +BENZ0.5T2 PO; +GABA-1171 PO; +LIDO5TD TD; +MIRA33506 PO; +SENO8.6T5 PO; +TAMS1CAP17 PO; +VENTAER INH
[2024-03-11] MEDS: FLUoxetine 20MG CAP PO SCH (09:00)
[2024-03-11] MEDS: BENZTROPINE 1 MG TAB PO SCH (09:00)
[2024-03-11] MEDS: DONEPEZIL 5 MG TAB PO SCH (09:00)
[2024-03-11] MEDS: LIDOCAINE 5% (LIDODERM) PATCH TD SCH (09:00)
[2024-03-11] MEDS: METOPROLOL SUCC (TopROL XL) 50MG **XL** TAB PO SCH (09:00)
[2024-03-11] MEDS: ATORVASTATIN 20 MG TAB PO SCH (09:00)
[2024-03-11] MEDS: BENZTROPINE 0.5 MG TAB PO SCH (09:00)
[2024-03-11] MEDS: TAMSULOSIN 0.4 MG CAP PO SCH (09:00)
[2024-03-11] MEDS: LOSARTAN 25 MG TAB PO SCH (09:00)
[2024-03-11] MEDS: QUEtiapine 300MG XR TABLET (SEROQUEL XR) PO SCH (09:00)
[2024-03-11] MEDS: LevoFLOXacin 250 MG TABLET PO ONE (10:14)
[2024-03-11] MEDS ORDERED: TRAZ-252 PO (10:47)
[2024-03-11] MEDS ORDERED: LIDO5TD TD (10:49)
[2024-03-11] MEDS ORDERED: HOME MED LIST COMPLETE! XX SCH (10:55)
[2024-03-11] MEDS ORDERED: MAALOX 30 ML SUSP *UDC PO PRN (12:30)
[2024-03-11] MEDS ORDERED: MOM 30ML SUSPENSION UDC PO PRN (12:30)
[2024-03-11] MEDS ORDERED: diphenhydrAMINE 25MG CAP PO PRN (12:30)
[2024-03-11 14:51] VITALS: BP 168/75; TEMP 97.6; O2SAT 97
[2024-03-11] MEDS: traZODone 50 MG TAB PO SCH (20:20)
[2024-03-12 06:08] VITALS: BP 149/76; TEMP 97.5; O2SAT 93
[2024-03-12 08:34] VITALS: BP 118/71
[2024-03-12 16:01] VITALS: BP 121/66; TEMP 98.4; O2SAT 94
[2024-03-13 06:28] VITALS: BP 164/75; TEMP 97.6; O2SAT 95
[2024-03-13 08:22] VITALS: BP 129/77
[2024-03-13 15:35] VITALS: BP 138/68; TEMP 97.3; O2SAT 93
[2024-03-14 06:39] VITALS: BP 124/67; TEMP 98; O2SAT 95
[2024-03-14] MEDS: ACETAMINOPHEN 325 MG TAB PO PRN (12:53)
[2024-03-14 15:53] VITALS: BP 133/63; TEMP 97.7; O2SAT 95
[2024-03-14] MEDS ORDERED: PERCOCET 5MG/325MG TAB PO PRN (21:25)
[2024-03-14] MEDS ORDERED: NALOXONE INJ 0.4MG/1ML VIAL IV PRN (21:25)
[2024-03-14] MEDS ORDERED: NALOXONE 2MG/2ML SYRINGE PRN (21:35)
[2024-03-14] MEDS: PERCOCET 5MG/325MG TAB PO PRN (21:38)
[2024-03-14 21:56] VITALS: BP 138/72; TEMP 98; O2SAT 95
[2024-03-15 06:10] VITALS: BP 140/72; TEMP 97.8; O2SAT 94
[2024-03-15 08:58] VITALS: BP 136/75
[2024-03-15 09:05] VITALS: BP 136/75
[2024-03-15 16:20] VITALS: BP 149/71; TEMP 97.6
[2024-03-15] MEDS: CIPROFLOXACIN 500MG TABLET PO SCH (20:32)
[2024-03-16 06:50] VITALS: BP 142/66; TEMP 97; O2SAT 95
[2024-03-16 08:23] VITALS: BP 124/76
[2024-03-16 08:28] VITALS: BP 124/76
[2024-03-16 10:00] LABS: BASO % 0.7 % (0.0-1.0); EOS # 0.3 10^3/uL (0.0-0.5); EOS % 6.3 % (0.0-3.0); HEMATOCRIT 42.5 % (42.0-52.0); LYMPH # 1.5 10^3/uL (1.5-5.0); LYMPH % 27.6 % (24.0-44.0); MEAN CORPUSCULAR HEMOGLOBIN 31.3 pg (27.0-33.0); MEAN CORPUSCULAR HGB CONC 32.9 g/dl (32.0-36.5); MEAN CORPUSCULAR VOLUME 95.1 fl (80.0-96.0); MONO # 0.5 10^3/uL (0.0-0.8); NEUTROPHILS % 55.2 % (36.0-66.0); PLATELET COUNT, AUTOMATED 190 10^3/uL (150-450); RED BLOOD COUNT 4.47 10^6/uL (4.30-6.10); WHITE BLOOD COUNT 5.4 10^3/uL (4.0-10.0)
[2024-03-16] MEDS: ALBUTEROL 90 MCG/ACT 8GM HFA INHALER INH PRN (10:03)
[2024-03-16 10:06] VITALS: BP 132/85; TEMP 97.5; O2SAT 92
[2024-03-16 10:33] LABS: BLOOD UREA NITROGEN 17 MG/DL (9-23); CARBON DIOXIDE LEVEL 26 MMOL/L (20-31); CHLORIDE LEVEL 110 MMOL/L (98-107); CREATININE FOR GFR 0.97 MG/DL (0.70-1.30); GLOMERULAR FILTRATION RATE > 60.0 (>42); GLUCOSE, FASTING 127 MG/DL (74-106); POTASSIUM SERUM 4.3 MMOL/L (3.5-5.1); SODIUM LEVEL 140 MMOL/L (136-145)
[2024-03-16] MEDS ORDERED: ALBUTEROL 90 MCG/ACT 8GM HFA INHALER INH PRN (11:20)
[2024-03-16] MEDS: SYMBICORT 160/4.5MCG INHALER 6GM INH SCH (11:56)
[2024-03-16 13:43] VITALS: BP_SYST 120; BP_DIAS 59; BP_DIAS 73; TEMP 97.8; O2SAT 91
[2024-03-16] MEDS ORDERED: LevoFLOXacin 750 MG TABLET PO SCH (18:00)
[2024-03-16] MEDS ORDERED: CEFDINIR 300 MG CAP (OMNICEF) PO SCH (21:00)
[2024-03-17] MEDS ORDERED: QUEtiapine FUMERATE XR 50MG TABER PO SCH (09:00)
== END 2024-03-16 16:19 | disposition short-term general hospital (02) | DRG 885 ==
LOC: M ED 05:18 → EDBD 05:18 → M ED INP 12:30 → M PSY 14:42
PROVIDERS: ADMIT Psychiatry & Neurology Psychiatry; ATTEND Psychiatry & Neurology Psychiatry
DX: F20.9 Schizophrenia, unspecified (principal); N39.0 Urinary tract infection, site not specified; I10 Essential (primary) hypertension; I25.2 Old myocardial infarction; F17.200 Nicotine dependence, unspecified, uncomplicated; G47.00 Insomnia, unspecified; I25.10 Atherosclerotic heart disease of native coronary artery without angina pectoris; E78.5 Hyperlipidemia, unspecified; N40.0 Benign prostatic hyperplasia without lower urinary tract symptoms; Z91.51 Personal history of suicidal behavior; Z91.148 Patient's other noncompliance with medication regimen for other reason; Z74.09 Other reduced mobility; Z79.899 Other long term (current) drug therapy; Z88.6 Allergy status to analgesic agent

== ENCOUNTER 2024-03-16 14:19 | Inpatient (IN) | payer MEDICARE ==
[~2024-03-16] VITALS: Ht 182.9 cm; Wt 116.3 kg
[2024-03-16] MEDS ORDERED: KETOROLAC 30 MG/ML 1ML VIAL IV ONE (14:35)
[2024-03-16] MEDS ORDERED: GABAPENTIN 100 MG CAP PO SCH (16:00)
[2024-03-16 16:25] VITALS: BP 132/79; TEMP 97.2; O2SAT 95
[2024-03-16 17:02] LABS: ABG BASE EXCESS -0.8 (-2.0-2.0); ABG HCO3 23.8 MMOL/L (22.0-26.0); ABG O2 SATURATION 95.2 % (95.0-99.0); ABG PARTIAL PRESSURE CO2 39.2 mmHg (35.0-45.0); ABG PARTIAL PRESSURE O2 74.9 mmHg (75.0-100.0); ABG STANDARD HCO3 23.8 MMOL/L. (22.0-26.0); ABG pH (ARTERIAL) 7.401 UNITS (7.350-7.450)
[2024-03-16 17:15] LABS: HEMATOCRIT 42.5 % (42.0-52.0); MEAN CORPUSCULAR HEMOGLOBIN 31.3 pg (27.0-33.0); MEAN CORPUSCULAR HGB CONC 32.9 g/dl (32.0-36.5); MEAN CORPUSCULAR VOLUME 94.9 fl (80.0-96.0); PLATELET COUNT, AUTOMATED 209 10^3/uL (150-450); RED BLOOD COUNT 4.48 10^6/uL (4.30-6.10); WHITE BLOOD COUNT 7.3 10^3/uL (4.0-10.0)
[2024-03-16] MEDS ORDERED: ALBUTEROL SULFATE 2.5MG/0.5ML INH NEB SOLN NEB PRN (17:25)
[2024-03-16] MEDS ORDERED: GABAPENTIN 100 MG CAP PO PRN (17:25)
[2024-03-16] MEDS ORDERED: KETOROLAC 30 MG/ML 1ML VIAL IV PRN (17:25)
[2024-03-16 17:27] LABS: INR 1.02; PARTIAL THROMBOPLASTIN TIME 29.1 SECONDS (24.8-34.2); PROTHROMBIN TIME 13.7 SECONDS (12.5-14.5)
[2024-03-16] MEDS: CEFEPIME HCL 1 GM in DEXTROSE 5% (D5W) ADV/MINI-BAG 50 ML IV SCH (17:35)
[2024-03-16 17:55] LABS: ALBUMIN 3.3 G/DL (3.2-5.2); ALKALINE PHOSPHATASE 132 U/L (40-129); ALT/SGPT 34 U/L (7.0-40); AST/SGOT 19 U/L (<34); BILIRUBIN,TOTAL 1.2 MG/DL (0.3-1.2); BLOOD UREA NITROGEN 18 MG/DL (9-23); CALCIUM LEVEL 9.4 MG/DL (8.3-10.6); CARBON DIOXIDE LEVEL 23 MMOL/L (20-31); CHLORIDE LEVEL 110 MMOL/L (98-107); GLOMERULAR FILTRATION RATE > 60.0 (>42); GLUCOSE, FASTING 110 MG/DL (74-106); POTASSIUM SERUM 4.8 MMOL/L (3.5-5.1); SODIUM LEVEL 139 MMOL/L (136-145); TOTAL PROTEIN 6.9 G/DL (5.7-8.2)
[2024-03-16 18:01] LABS: PROCALCITONIN <0.04 ng/ml
[2024-03-16] MEDS: ACETAMINOPHEN 500 MG TAB PO SCH (18:23)
[2024-03-16] MEDS: methylPREDNISolone 40MG 1ML VIAL IV SCH (18:23)
[2024-03-16] MEDS: NS 1,000 ML IV ONE (18:24)
[2024-03-16] MEDS: BUDESONIDE 0.5 MG/2 ML INHALATION SUSPENSION NEB SCH (19:52)
[2024-03-16] MEDS: FORMOTEROL FUMARATE 20 MCG/2 ML INHALATION SOLUTION (PERFOROMIST) INH SCH (19:52)
[2024-03-16] MEDS: IPRATROPIUM 0.5MG/ALBUTEROL 2.5MG INH SOL UD 3ML (DUONEB) NEB SCH (19:52)
[2024-03-16 20:06] VITALS: BP 160/76; TEMP 97; O2SAT 97
[2024-03-16] MEDS: DOCUSATE SODIUM 100MG CAPSULE PO SCH (20:21)
[2024-03-16 23:47] VITALS: BP 152/88; TEMP 97.2; O2SAT 90
[2024-03-17] VITALS (13 sets, daily range): BP systolic 128–152; BP diastolic 69–87; TEMP 97.3–97.7; O2SAT 85–92
[2024-03-17] MEDS: PANTOPRAZOLE 40MG VIAL IV SCH (00:05)
[2024-03-17 06:46] LABS: HEMATOCRIT 42.1 % (42.0-52.0); HEMOGLOBIN 13.8 g/dl (13.5-17.5); MEAN CORPUSCULAR HEMOGLOBIN 31.1 pg (27.0-33.0); MEAN CORPUSCULAR HGB CONC 32.8 g/dl (32.0-36.5); MEAN CORPUSCULAR VOLUME 94.8 fl (80.0-96.0); PLATELET COUNT, AUTOMATED 218 10^3/uL (150-450); RED BLOOD COUNT 4.44 10^6/uL (4.30-6.10)
[2024-03-17 07:15] LABS: BLOOD UREA NITROGEN 16 MG/DL (9-23); CALCIUM LEVEL 9.3 MG/DL (8.3-10.6); CARBON DIOXIDE LEVEL 23 MMOL/L (20-31); CHLORIDE LEVEL 110 MMOL/L (98-107); CREATININE FOR GFR 0.87 MG/DL (0.70-1.30); GLOMERULAR FILTRATION RATE > 60.0 (>42); GLUCOSE, FASTING 149 MG/DL (74-106); POTASSIUM SERUM 4.6 MMOL/L (3.5-5.1); SODIUM LEVEL 139 MMOL/L (136-145)
[2024-03-17] MEDS: TAMSULOSIN 0.4 MG CAP PO SCH (09:02)
[2024-03-17] MEDS ORDERED: HOME MED LIST COMPLETE! XX SCH (14:20)
[2024-03-17] MEDS: METOPROLOL SUCC (TopROL XL) 50MG **XL** TAB PO SCH (17:27)
[2024-03-17 23:10] LABS: MAGNESIUM LEVEL 1.9 MG/DL (1.8-2.4); POTASSIUM SERUM 4.2 MMOL/L (3.5-5.1)
[2024-03-18] VITALS (10 sets, daily range): BP systolic 129–146; BP diastolic 56–76; TEMP 97.3–97.5; O2SAT 92–97
[2024-03-18] MEDS: FUROSEMIDE 20 MG TAB PO SCH (07:51)
[2024-03-18] MEDS: ATORVASTATIN 20 MG TAB PO SCH (07:52)
[2024-03-18] MEDS: ASPIRIN 81MG CHEW TABLET PEG SCH (07:52)
[2024-03-19 03:55] VITALS: BP 127/69; TEMP 97.5; O2SAT 94
[2024-03-19] MEDS: predniSONE 20 MG TAB PO SCH (09:04)
[2024-03-19] MEDS ORDERED: METOPROLOL SUCC *XL* 25MG TAB (TopROL *XL*) PO SCH (10:40)
[2024-03-19 11:42] LABS: MAGNESIUM LEVEL 1.9 MG/DL (1.8-2.4)
[2024-03-19 12:00] VITALS: BP 139/70; TEMP 97.3; O2SAT 95
[2024-03-19] MEDS: MAG SULF 1GM/100ML (MAG RUN) 1 GM in IV 1 EA IV ONE (14:43)
[2024-03-19 15:51] LABS: BLOOD UREA NITROGEN 22 MG/DL (9-23); CALCIUM LEVEL 9.2 MG/DL (8.3-10.6); CARBON DIOXIDE LEVEL 24 MMOL/L (20-31); CHLORIDE LEVEL 106 MMOL/L (98-107); CREATININE FOR GFR 0.85 MG/DL (0.70-1.30); GLOMERULAR FILTRATION RATE > 60.0 (>42); GLUCOSE, FASTING 110 MG/DL (74-106); POTASSIUM SERUM 3.3 MMOL/L (3.5-5.1); SODIUM LEVEL 139 MMOL/L (136-145)
[2024-03-19] MEDS: POTASSIUM CHLORIDE 10MEQ SR TABLET PO ONE ×2 (16:43→20:11)
[2024-03-19 20:17] VITALS: BP 142/64; TEMP 97.5; O2SAT 94
[2024-03-19 21:36] VITALS: O2SAT 92
[2024-03-20] VITALS (12 sets, daily range): BP systolic 126–144; BP diastolic 60–84; TEMP 97.3–97.7; O2SAT 92–96
[2024-03-20 05:19] LABS: HEMATOCRIT 38.3 % (42.0-52.0); HEMOGLOBIN 12.8 g/dl (13.5-17.5); MEAN CORPUSCULAR HEMOGLOBIN 31.1 pg (27.0-33.0); MEAN CORPUSCULAR HGB CONC 33.4 g/dl (32.0-36.5); MEAN CORPUSCULAR VOLUME 93.2 fl (80.0-96.0); PLATELET COUNT, AUTOMATED 191 10^3/uL (150-450); RED BLOOD COUNT 4.11 10^6/uL (4.30-6.10); WHITE BLOOD COUNT 9.1 10^3/uL (4.0-10.0)
[2024-03-20 05:47] LABS: BLOOD UREA NITROGEN 18 MG/DL (9-23); CALCIUM LEVEL 9.2 MG/DL (8.3-10.6); CARBON DIOXIDE LEVEL 23 MMOL/L (20-31); CHLORIDE LEVEL 108 MMOL/L (98-107); CREATININE FOR GFR 0.89 MG/DL (0.70-1.30); GLOMERULAR FILTRATION RATE > 60.0 (>42); GLUCOSE, FASTING 97 MG/DL (74-106); POTASSIUM SERUM 3.8 MMOL/L (3.5-5.1); SODIUM LEVEL 139 MMOL/L (136-145)
[2024-03-20] MEDS: FUROSEMIDE 40MG/4ML VIAL IV SCH (08:56)
[2024-03-20 21:37] LABS: BLOOD UREA NITROGEN 19 MG/DL (9-23); CARBON DIOXIDE LEVEL 24 MMOL/L (20-31); CHLORIDE LEVEL 106 MMOL/L (98-107); CREATININE FOR GFR 1.01 MG/DL (0.70-1.30); GLOMERULAR FILTRATION RATE > 60.0 (>42); GLUCOSE, FASTING 139 MG/DL (74-106); MAGNESIUM LEVEL 1.9 MG/DL (1.8-2.4); POTASSIUM SERUM 4.2 MMOL/L (3.5-5.1); SODIUM LEVEL 136 MMOL/L (136-145)
[2024-03-21 04:00] VITALS: BP 123/78; TEMP 97.3; O2SAT 99
[2024-03-21 06:16] LABS: HEMATOCRIT 40.1 % (42.0-52.0); HEMOGLOBIN 13.5 g/dl (13.5-17.5); MEAN CORPUSCULAR HGB CONC 33.7 g/dl (32.0-36.5); PLATELET COUNT, AUTOMATED 215 10^3/uL (150-450); RED BLOOD COUNT 4.36 10^6/uL (4.30-6.10); WHITE BLOOD COUNT 9.3 10^3/uL (4.0-10.0)
[2024-03-21 06:55] LABS: BLOOD UREA NITROGEN 19 MG/DL (9-23); CALCIUM LEVEL 9.3 MG/DL (8.3-10.6); CARBON DIOXIDE LEVEL 24 MMOL/L (20-31); CHLORIDE LEVEL 108 MMOL/L (98-107); CREATININE FOR GFR 0.93 MG/DL (0.70-1.30); GLOMERULAR FILTRATION RATE > 60.0 (>42); GLUCOSE, FASTING 96 MG/DL (74-106); POTASSIUM SERUM 3.9 MMOL/L (3.5-5.1); SODIUM LEVEL 139 MMOL/L (136-145)
[2024-03-21 07:13] VITALS: O2SAT 99
[2024-03-21] MEDS: PANTOPRAZOLE 40MG TAB (PROTONIX) PO SCH (09:15)
[2024-03-21 12:00] VITALS: BP 127/80; TEMP 97.3; O2SAT 95
[2024-03-21] MEDS: SYMBICORT 160/4.5MCG INHALER 6GM INH SCH (19:10)
[2024-03-21 20:32] VITALS: BP 132/68; TEMP 97.7; O2SAT 94
[2024-03-21 23:09] VITALS: O2SAT 98
[2024-03-22 01:34] LABS: BLOOD UREA NITROGEN 24 MG/DL (9-23); CALCIUM LEVEL 9.5 MG/DL (8.3-10.6); CARBON DIOXIDE LEVEL 24 MMOL/L (20-31); CHLORIDE LEVEL 107 MMOL/L (98-107); CREATININE FOR GFR 0.96 MG/DL (0.70-1.30); GLOMERULAR FILTRATION RATE > 60.0 (>42); GLUCOSE, FASTING 124 MG/DL (74-106); MAGNESIUM LEVEL 2.1 MG/DL (1.8-2.4); POTASSIUM SERUM 4.2 MMOL/L (3.5-5.1); SODIUM LEVEL 138 MMOL/L (136-145)
[2024-03-22 03:20] VITALS: BP 120/79; TEMP 97; O2SAT 98
[2024-03-22 06:35] LABS: HEMATOCRIT 41.2 % (42.0-52.0); MEAN CORPUSCULAR HEMOGLOBIN 31.6 pg (27.0-33.0); PLATELET COUNT, AUTOMATED 208 10^3/uL (150-450); RED BLOOD COUNT 4.43 10^6/uL (4.30-6.10); WHITE BLOOD COUNT 11.3 10^3/uL (4.0-10.0)
[2024-03-22 07:04] LABS: BLOOD UREA NITROGEN 25 MG/DL (9-23); CALCIUM LEVEL 9.7 MG/DL (8.3-10.6); CARBON DIOXIDE LEVEL 24 MMOL/L (20-31); CHLORIDE LEVEL 107 MMOL/L (98-107); CREATININE FOR GFR 0.94 MG/DL (0.70-1.30); GLOMERULAR FILTRATION RATE > 60.0 (>42); GLUCOSE, FASTING 105 MG/DL (74-106); POTASSIUM SERUM 3.8 MMOL/L (3.5-5.1); SODIUM LEVEL 139 MMOL/L (136-145)
[2024-03-22 12:00] VITALS: BP 126/68; TEMP 97.5; O2SAT 93
[2024-03-22] MEDS ORDERED: LOSA25TA13 PO (12:53)
[2024-03-22] MEDS ORDERED: ASPI81CH8 PO (12:53)
[2024-03-22] MEDS ORDERED: PRED20TA PO (12:53)
[2024-03-22] MEDS ORDERED: LASI20TA3 PO (12:53)
[2024-03-22] MEDS ORDERED: SYMB16INH INH (12:53)
[2025-02-16] MEDS ORDERED: METOPROLOL SUCC *XL* 25MG TAB (TopROL *XL*) PO SCH (09:00)
== END 2024-03-22 19:52 | DRG 92 ==
LOC: M MSPAV 16:37
PROVIDERS: ADMIT Internal Medicine Nephrology; ATTEND Student in an Organized Health Care Education/Training Program
DX: G92.8 Other toxic encephalopathy (principal); N39.0 Urinary tract infection, site not specified; J44.1 Chronic obstructive pulmonary disease with (acute) exacerbation; F20.9 Schizophrenia, unspecified; I11.0 Hypertensive heart disease with heart failure; E78.5 Hyperlipidemia, unspecified; M54.9 Dorsalgia, unspecified; Z91.51 Personal history of suicidal behavior; F41.9 Anxiety disorder, unspecified; N40.0 Benign prostatic hyperplasia without lower urinary tract symptoms; G89.29 Other chronic pain; M47.816 Spondylosis without myelopathy or radiculopathy, lumbar region; M51.26 Other intervertebral disc displacement, lumbar region; K59.00 Constipation, unspecified; Z79.899 Other long term (current) drug therapy; Z88.6 Allergy status to analgesic agent; I50.9 Heart failure, unspecified; I25.10 Atherosclerotic heart disease of native coronary artery without angina pectoris

== ENCOUNTER 2024-03-22 16:47 | Inpatient (IN) | payer MEDICARE ==
[~2024-03-22] VITALS: Ht 182.9 cm; Wt 114.1 kg
[~2024-03-22 16:47] MED LIST changes: +ASPI81CH8 PO; +LASI20TA3 PO; +PRED20TA PO; +SYMB16INH INH
[2024-03-22] MEDS ORDERED: MOM 30ML SUSPENSION UDC PO PRN (18:30)
[2024-03-22] MEDS ORDERED: MAALOX 30 ML SUSP *UDC PO PRN (18:30)
[2024-03-22] MEDS ORDERED: IBUPROFEN 400MG TAB PO PRN (18:30)
[2024-03-22] MEDS ORDERED: ALBUTEROL 90 MCG/ACT 8GM HFA INHALER INH PRN (18:30)
[2024-03-22 20:51] VITALS: BP 149/80; TEMP 98.2; O2SAT 94
[2024-03-22] MEDS: SYMBICORT 160/4.5MCG INHALER 6GM INH SCH (21:15)
[2024-03-23 06:08] VITALS: BP 153/86; TEMP 97.2; O2SAT 94
[2024-03-23 08:08] VITALS: BP 126/77
[2024-03-23] MEDS: FLUoxetine 20MG CAP PO SCH (08:12)
[2024-03-23] MEDS: ATORVASTATIN 20 MG TAB PO SCH (08:12)
[2024-03-23] MEDS: ASPIRIN 81MG CHEW TABLET PO SCH (08:12)
[2024-03-23] MEDS: LOSARTAN 25 MG TAB PO SCH (08:13)
[2024-03-23] MEDS: TAMSULOSIN 0.4 MG CAP PO SCH (08:13)
[2024-03-23 15:49] VITALS: BP 116/65; TEMP 97.8; O2SAT 95
[2024-03-24] MEDS: ACETAMINOPHEN 325 MG TAB PO PRN (01:32)
[2024-03-24 06:13] VITALS: BP 132/79; TEMP 97.5; O2SAT 95
[2024-03-24 08:55] VITALS: BP 124/72
[2024-03-24] MEDS: ARIPiprazole 15 MG TAB (AbiLIFY) PO SCH (08:59)
[2024-03-24 15:01] VITALS: BP 138/64; TEMP 98.3; O2SAT 95
[2024-03-24] MEDS: diphenhydrAMINE 25MG CAP PO PRN (20:50)
[2024-03-25 06:23] VITALS: BP 144/78; TEMP 97; O2SAT 96
[2024-03-25 08:42] VITALS: BP 105/66
[2024-03-25] MEDS: TIOTROPIUM INHALER/CAPSULE (SPIRIVA) INH SCH (08:45)
[2024-03-25 15:38] VITALS: BP 104/64; TEMP 98.2; O2SAT 99
[2024-03-26] VITALS (7 sets, daily range): BP systolic 105–149; BP diastolic 59–90; TEMP 97.2–98.2; O2SAT 96–97
[2024-03-27 06:28] VITALS: BP 138/72; TEMP 97.6; O2SAT 97
[2024-03-27 06:49] VITALS: BP_SYST 137; BP_SYST 157; BP_SYST 162; BP_DIAS 67; BP_DIAS 72; BP_DIAS 75
[2024-03-27 08:33] VITALS: BP_SYST 112; BP_SYST 131; BP_SYST 143; BP_DIAS 57; BP_DIAS 61; BP_DIAS 74
[2024-03-27] MEDS: ARIPiprazole 10 MG TAB PO SCH (08:39)
[2024-03-27 16:29] VITALS: BP_SYST 141; BP_SYST 160; BP_SYST 162; BP_DIAS 74; BP_DIAS 81; BP_DIAS 83; TEMP 97.8; O2SAT 95
[2024-03-28 06:36] VITALS: BP_SYST 136; BP_SYST 148; BP_SYST 154; BP_DIAS 74; BP_DIAS 80
[2024-03-28 06:39] VITALS: TEMP 98; O2SAT 97
[2024-03-28 15:23] VITALS: BP 121/58; TEMP 97.5; O2SAT 95
[2024-03-28] MEDS: traZODone 50 MG TAB PO PRN (21:26)
[2024-03-29 06:40] VITALS: BP 136/73; TEMP 97.9; O2SAT 93
[2024-03-29 15:16] VITALS: BP 91/53; TEMP 98.9; O2SAT 94
[2024-03-30 06:50] VITALS: BP 123/62; TEMP 97.5; O2SAT 94
[2024-03-30 08:52] VITALS: BP 123/70
[2024-03-30 14:54] VITALS: BP 116/53; TEMP 99; O2SAT 98
[2024-03-31 06:29] VITALS: BP 147/88; TEMP 97.6; O2SAT 94
[2024-03-31] MEDS: ARIPiprazole 15 MG TAB (AbiLIFY) PO SCH (08:48)
[2024-03-31 14:00] VITALS: BP 146/76; TEMP 98; O2SAT 95
[2024-04-01 06:32] VITALS: BP 124/67; TEMP 97.6; O2SAT 100
[2024-04-01 15:15] VITALS: BP 127/70; TEMP 98.8; O2SAT 95
[2024-04-02 06:18] VITALS: BP 121/70; TEMP 97.9; O2SAT 98
[2024-04-02 08:47] VITALS: BP 111/60
[2024-04-02 15:01] VITALS: BP 137/74; TEMP 96.8; O2SAT 95
[2024-04-03 06:55] VITALS: BP 139/71; TEMP 98; O2SAT 95
[2024-04-03 14:54] VITALS: BP 120/59; TEMP 98.6; O2SAT 94
[2024-04-04 06:39] VITALS: BP 134/64; TEMP 97.1; O2SAT 95
[2024-04-04 15:16] VITALS: BP 103/64; TEMP 98.1; O2SAT 96
[2024-04-05 06:43] VITALS: BP 139/68; TEMP 98.3; O2SAT 97
[2024-04-05 08:43] VITALS: BP 106/55
[2024-04-05 15:39] VITALS: BP 132/84; TEMP 97.6; O2SAT 93
[2024-04-06 06:35] VITALS: BP 146/70; TEMP 97; O2SAT 95
[2024-04-06 15:24] VITALS: BP 157/64; TEMP 97; O2SAT 96
[2024-04-07 06:26] VITALS: BP 143/74; TEMP 97; O2SAT 93
[2024-04-07 08:51] VITALS: BP 106/55
[2024-04-07 15:45] VITALS: BP 111/68; TEMP 97.1; O2SAT 96
[2024-04-08 06:24] VITALS: BP 143/67; TEMP 97.9; O2SAT 95
[2024-04-08 08:35] VITALS: BP 118/69
[2024-04-08] MEDS ORDERED: ABIL1TAB12 PO (12:40)
[2024-04-08] MEDS ORDERED: TRAZ-252 PO (12:40)
[2024-04-08] MEDS ORDERED: FLUO-365 PO (12:40)
== END 2024-04-08 12:25 | disposition home or self-care (01) | DRG 885 ==
LOC: M PSY 20:00
PROVIDERS: ADMIT Psychiatry & Neurology Child & Adolescent Psychiatry; ATTEND Psychiatry & Neurology Psychiatry
DX: F28 Other psychotic disorder not due to a substance or known physiological condition (principal); F41.9 Anxiety disorder, unspecified; G31.84 Mild cognitive impairment of uncertain or unknown etiology; I10 Essential (primary) hypertension; E78.5 Hyperlipidemia, unspecified; N40.0 Benign prostatic hyperplasia without lower urinary tract symptoms; J44.9 Chronic obstructive pulmonary disease, unspecified; R42 Dizziness and giddiness; M51.26 Other intervertebral disc displacement, lumbar region; G89.29 Other chronic pain; R26.89 Other abnormalities of gait and mobility; M47.816 Spondylosis without myelopathy or radiculopathy, lumbar region; M48.061 Spinal stenosis, lumbar region without neurogenic claudication; Z79.82 Long term (current) use of aspirin; Z79.899 Other long term (current) drug therapy; Z88.6 Allergy status to analgesic agent; Z91.51 Personal history of suicidal behavior

== ENCOUNTER 2024-04-26 10:00 | Emergency (ER) | payer MEDICARE ==
[~2024-04-26] VITALS: Ht 182.9 cm; Wt 113.9 kg
[~2024-04-26 10:00] MED LIST changes: +ABIL1TAB12 PO
[2024-04-26 12:49] VITALS: BP 139/72; TEMP 96.2; O2SAT 96
== END 2024-04-26 12:50 | disposition home or self-care (01) ==
LOC: EDBD 10:00 → M ED 10:00
DX: R44.0 Auditory hallucinations (principal); I50.22 Chronic systolic (congestive) heart failure; J44.9 Chronic obstructive pulmonary disease, unspecified; F41.9 Anxiety disorder, unspecified; Z87.891 Personal history of nicotine dependence; Z88.8 Allergy status to other drugs, medicaments and biological substances; Z79.51 Long term (current) use of inhaled steroids; Z79.899 Other long term (current) drug therapy

== ENCOUNTER 2024-05-02 04:33 | Emergency (ER) | payer MEDICARE ==
[~2024-05-02] VITALS: Ht 185.4 cm; Wt 113.3 kg
[2024-05-02] MEDS ORDERED: ARIPiprazole 10 MG TAB PO SCH (09:00)
[2024-05-02] MEDS ORDERED: ASPI81CH33 PO (09:48)
[2024-05-02] MEDS ORDERED: ARIP1TAB10 PO (09:48)
[2024-05-02] MEDS ORDERED: SYMB16INH INH (09:48)
[2024-05-02] MEDS ORDERED: FURO20TA2 PO (09:50)
[2024-05-02] MEDS ORDERED: HOME MED LIST COMPLETE! XX SCH (10:00)
[2024-05-02] MEDS ORDERED: PILL CUTTER 1 EACH XX ONE (14:06)
[2024-05-02] MEDS: ARIPiprazole 10 MG TAB PO ONE (14:08)
[2024-05-02] MEDS: ASPIRIN 81MG CHEW TABLET PO ONE (14:09)
[2024-05-02] MEDS: TAMSULOSIN 0.4 MG CAP PO ONE (14:09)
[2024-05-02] MEDS: ATORVASTATIN 20 MG TAB PO ONE (14:10)
[2024-05-02] MEDS: FLUoxetine 20MG CAP PO ONE (14:11)
[2024-05-02] MEDS: LOSARTAN 25 MG TAB PO ONE (14:16)
[2024-05-02] MEDS: DONEPEZIL 5 MG TAB PO SCH (14:33)
[2024-05-02] MEDS ORDERED: PILL CUTTER 1 EACH XX PRN (15:00)
[2024-05-02] MEDS ORDERED: traZODone 50 MG TAB PO PRN (21:00)
[2024-05-03] MEDS: hydrOXYzine 50 MG TAB PO STA (03:03)
[2024-05-03] MEDS: ARIPiprazole 10 MG TAB PO SCH (08:49)
[2024-05-03] MEDS: FUROSEMIDE 20 MG TAB PO SCH (08:50)
[2024-05-03] MEDS: ASPIRIN 81MG CHEW TABLET PO SCH (08:50)
[2024-05-03] MEDS: ATORVASTATIN 20 MG TAB PO SCH (08:50)
[2024-05-03] MEDS: FLUoxetine 20MG CAP PO SCH (08:50)
[2024-05-03 08:52] VITALS: BP 143/90
[2024-05-03] MEDS: TAMSULOSIN 0.4 MG CAP PO SCH (08:52)
[2024-05-03] MEDS: LOSARTAN 25 MG TAB PO SCH (08:52)
[2024-05-03 13:13] VITALS: BP 134/68; TEMP 97.6; O2SAT 97
== END 2024-05-03 13:18 | disposition home or self-care (01) ==
LOC: M ED 04:33 → EDBD 04:33 → M ED 05-03 13:18
DX: F20.9 Schizophrenia, unspecified (principal); E78.5 Hyperlipidemia, unspecified; I10 Essential (primary) hypertension; J44.9 Chronic obstructive pulmonary disease, unspecified; Z88.8 Allergy status to other drugs, medicaments and biological substances; Z79.51 Long term (current) use of inhaled steroids; Z79.1 Long term (current) use of non-steroidal anti-inflammatories (NSAID); Z79.899 Other long term (current) drug therapy

== ENCOUNTER 2024-05-10 22:21 | Inpatient (IN) | payer MEDICARE ==
[~2024-05-10] VITALS: Ht 182.9 cm; Wt 113.6 kg
[~2024-05-10 22:21] MED LIST changes: +ARIP1TAB10 PO; +ASPI81CH33 PO; +FURO20TA2 PO
[2024-05-10] MEDS: ALBUTEROL 90 MCG/ACT 8GM HFA INHALER INH ONE (23:00)
[2024-05-10 23:10] LABS: HEMOGLOBIN 13.5 g/dl (13.5-17.5); MEAN CORPUSCULAR HEMOGLOBIN 31.5 pg (27.0-33.0); MEAN CORPUSCULAR HGB CONC 32.9 g/dl (32.0-36.5); MEAN CORPUSCULAR VOLUME 95.8 fl (80.0-96.0); PLATELET COUNT, AUTOMATED 205 10^3/uL (150-450); RED BLOOD COUNT 4.28 10^6/uL (4.30-6.10); WHITE BLOOD COUNT 8.2 10^3/uL (4.0-10.0)
[2024-05-10 23:28] LABS: ETHYL ALCOHOL (ETHANOL) 0.004 % (0.000-0.010)
[2024-05-10 23:30] LABS: SALICYLATE LEVEL < 3.0 MG/DL (<30)
[2024-05-10 23:32] LABS: THYROID STIMULATING HORMONE 1.828 uIU/ML (0.55-4.78)
[2024-05-10 23:33] LABS: ALBUMIN 2.5 G/DL (3.2-5.2); ALKALINE PHOSPHATASE 111 U/L (40-129); ALT/SGPT 27 U/L (7.0-40); AST/SGOT 14 U/L (<34); BILIRUBIN,DIRECT 0.1 MG/DL (<0.4); BILIRUBIN,TOTAL 0.3 MG/DL (0.3-1.2); BLOOD UREA NITROGEN 24 MG/DL (9-23); CALCIUM LEVEL 7.1 MG/DL (8.3-10.6); CARBON DIOXIDE LEVEL 22 MMOL/L (20-31); CHLORIDE LEVEL 115 MMOL/L (98-107); CREATININE FOR GFR 0.93 MG/DL (0.70-1.30); GLOMERULAR FILTRATION RATE > 60.0 (>42); GLUCOSE, FASTING 108 MG/DL (74-106); POTASSIUM SERUM 3.4 MMOL/L (3.5-5.1); SODIUM LEVEL 147 MMOL/L (136-145); TOTAL PROTEIN 5.2 G/DL (5.7-8.2)
[2024-05-11 01:11] LABS: KETONE, URINE AUTO RFX NEGATIVE (NEGATIVE); MUCUS, URINE RFX SMALL (NEGATIVE)
[2024-05-11 01:24] LABS: AMPHETAMINES LEVEL URINE NEGATIVE (NEGATIVE); BARBITURATES URINE NEGATIVE (NEGATIVE); BENZODIAZEPINES URINE NEGATIVE (NEGATIVE); CANNABINOIDS URINE NEGATIVE (NEGATIVE); COCAINE METABOLITE URINE NEGATIVE (NEGATIVE); METHADONE URINE NEGATIVE (NEGATIVE); OPIATES URINE NEGATIVE (NEGATIVE); PHENCYCLIDINE URINE NEGATIVE (NEGATIVE)
[2024-05-11 01:34] LABS: LEUKOCYTE ESTERASE UR AUTO RFX 3+ (NEGATIVE)
[2024-05-11] MEDS ORDERED: MAALOX 30 ML SUSP *UDC PO PRN (03:15)
[2024-05-11] MEDS ORDERED: MOM 30ML SUSPENSION UDC PO PRN (03:15)
[2024-05-11] MEDS: ACETAMINOPHEN 325 MG TAB PO PRN (05:13)
[2024-05-11] MEDS: NICOTINE 14 MG/24 HR TRANSDERMAL TD SCH (09:00)
[2024-05-11] MEDS: FLUoxetine 20MG CAP PO SCH (09:42)
[2024-05-11] MEDS ORDERED: TREL1AER PO (12:24)
[2024-05-11] MEDS ORDERED: HOME MED LIST COMPLETE! XX SCH (12:25)
[2024-05-11 17:14] VITALS: BP 121/58; TEMP 98.2; O2SAT 95
[2024-05-11] MEDS: LevoFLOXacin 750 MG TABLET PO SCH (20:19)
[2024-05-11] MEDS: traZODone 50 MG TAB PO PRN (20:20)
[2024-05-11] MEDS: SYMBICORT 160/4.5MCG INHALER 6GM INH SCH (20:20)
[2024-05-11] MEDS: ARIPiprazole 15 MG TAB (AbiLIFY) PO SCH (20:20)
[2024-05-12 06:24] VITALS: BP 130/70; TEMP 97.9; O2SAT 95
[2024-05-12] MEDS: ATORVASTATIN 20 MG TAB PO SCH (08:43)
[2024-05-12] MEDS: TIOTROPIUM INHALER/CAPSULE (SPIRIVA) INH SCH (08:43)
[2024-05-12] MEDS: TAMSULOSIN 0.4 MG CAP PO SCH (08:43)
[2024-05-12] MEDS: ASPIRIN 81MG CHEW TABLET PO SCH (08:43)
[2024-05-12] MEDS: FUROSEMIDE 20 MG TAB PO SCH (08:43)
[2024-05-12] MEDS: LOSARTAN 25 MG TAB PO SCH (08:53)
[2024-05-12] MEDS: PILL CUTTER 1 EACH XX PRN (08:54)
[2024-05-12] MEDS ORDERED: ARIPiprazole 15 MG TAB (AbiLIFY) PO SCH (09:00)
[2024-05-12] MEDS: LORazepam 1 MG TAB PO PRN (15:15)
[2024-05-12 16:14] VITALS: BP 140/68; TEMP 97.7; O2SAT 94
[2024-05-13] MEDS: diphenhydrAMINE 25MG CAP PO PRN (04:01)
[2024-05-13 06:24] VITALS: BP 130/71; TEMP 97.3; O2SAT 94
[2024-05-13 16:03] VITALS: BP 122/77; TEMP 97.7; O2SAT 98
[2024-05-14 08:47] VITALS: BP 164/96
[2024-05-14 14:51] VITALS: BP 126/70; TEMP 97.8; O2SAT 98
[2024-05-14] MEDS: traZODone 100 MG TAB PO PRN (20:27)
[2024-05-15 05:59] VITALS: BP 142/61; TEMP 96.8; O2SAT 98
[2024-05-15 15:33] VITALS: BP 136/79; TEMP 97.4; O2SAT 98
[2024-05-16 06:52] VITALS: BP 124/61; TEMP 97.9; O2SAT 95
[2024-05-16 16:31] VITALS: BP 121/71; TEMP 98; O2SAT 97
[2024-05-17 06:20] VITALS: BP 114/58; TEMP 97.8; O2SAT 94
[2024-05-17 08:55] VITALS: BP 143/85
[2024-05-17 18:59] VITALS: BP 132/85; TEMP 98.6; O2SAT 98
[2024-05-18 06:26] VITALS: BP 121/63; TEMP 97.5; O2SAT 95
[2024-05-18 14:33] VITALS: BP 111/73; TEMP 97.8; O2SAT 100
[2024-05-19] MEDS: OLANZapine ORAL DISINTEGRATING TAB 5MG PO PRN (00:17)
[2024-05-19 05:59] VITALS: BP 128/70; TEMP 98.1; O2SAT 94
[2024-05-19 08:49] VITALS: BP 128/77
[2024-05-19] MEDS: ALBUTEROL 90 MCG/ACT 8GM HFA INHALER INH PRN (09:42)
[2024-05-19 16:21] VITALS: BP 113/69; TEMP 97.9; O2SAT 97
[2024-05-20 06:35] VITALS: BP 160/79; TEMP 97.4; O2SAT 96
[2024-05-20 09:01] VITALS: BP 152/94
[2024-05-20 15:19] VITALS: BP 112/88; TEMP 97.3; O2SAT 94
[2024-05-21 06:32] VITALS: BP 144/82; TEMP 97.9; O2SAT 98
[2024-05-21] MEDS ORDERED: SYMB16INH INH (07:25)
[2024-05-21] MEDS ORDERED: ATOR40TA75 PO (07:25)
[2024-05-21] MEDS ORDERED: TAMS1CAP17 PO (07:25)
[2024-05-21] MEDS ORDERED: FURO20TA2 PO (07:25)
[2024-05-21] MEDS ORDERED: TREL1AER PO (07:25)
[2024-05-21] MEDS ORDERED: VENTAER INH (07:25)
[2024-05-21] MEDS ORDERED: ARIP1TAB10 PO (07:25)
[2024-05-21] MEDS ORDERED: ASPI81CH33 PO (07:25)
[2024-05-21] MEDS ORDERED: LEVO75TAB PO (07:25)
[2024-05-21] MEDS ORDERED: FLUO40CA PO (07:25)
[2024-05-21 08:33] VITALS: BP 159/74
[2024-05-21 08:39] VITALS: BP 159/74
== END 2024-05-21 12:21 | disposition home or self-care (01) | DRG 885 ==
LOC: EDBD 22:21 → M ED 22:39 → M ED INP 05-11 03:13 → M PSY 05-11 04:20
PROVIDERS: ADMIT Psychiatry & Neurology Neurology; ATTEND Psychiatry & Neurology Psychiatry
DX: F28 Other psychotic disorder not due to a substance or known physiological condition (principal); G31.84 Mild cognitive impairment of uncertain or unknown etiology; F41.9 Anxiety disorder, unspecified; F32.A Depression, unspecified; I10 Essential (primary) hypertension; E78.5 Hyperlipidemia, unspecified; N40.0 Benign prostatic hyperplasia without lower urinary tract symptoms; J44.9 Chronic obstructive pulmonary disease, unspecified; M54.50 Low back pain, unspecified; G89.29 Other chronic pain; M47.816 Spondylosis without myelopathy or radiculopathy, lumbar region; M48.061 Spinal stenosis, lumbar region without neurogenic claudication; R26.89 Other abnormalities of gait and mobility; Z81.1 Family history of alcohol abuse and dependence; Z81.8 Family history of other mental and behavioral disorders; Z79.82 Long term (current) use of aspirin; Z79.899 Other long term (current) drug therapy; Z88.6 Allergy status to analgesic agent

== ENCOUNTER 2024-05-31 02:25 | Emergency (ER) | payer MEDICARE ==
[~2024-05-31] VITALS: Ht 182.9 cm; Wt 109.0 kg
[~2024-05-31 02:25] MED LIST changes: +LEVO75TAB PO; +TREL1AER PO
[2024-05-31 02:35] VITALS: BP 137/77; TEMP 97.1; O2SAT 95
[2024-05-31 03:12] LABS: HEMATOCRIT 40.7 % (42.0-52.0); HEMOGLOBIN 13.5 g/dl (13.5-17.5); MEAN CORPUSCULAR HEMOGLOBIN 31.5 pg (27.0-33.0); MEAN CORPUSCULAR HGB CONC 33.2 g/dl (32.0-36.5); MEAN CORPUSCULAR VOLUME 94.9 fl (80.0-96.0); PLATELET COUNT, AUTOMATED 184 10^3/uL (150-450); RED BLOOD COUNT 4.29 10^6/uL (4.30-6.10); WHITE BLOOD COUNT 7.6 10^3/uL (4.0-10.0)
[2024-05-31 03:36] LABS: ETHYL ALCOHOL (ETHANOL) < 0.003 % (0.000-0.010)
[2024-05-31 03:38] LABS: SALICYLATE LEVEL < 3.0 MG/DL (<30)
[2024-05-31 03:40] LABS: THYROID STIMULATING HORMONE 2.203 uIU/ML (0.55-4.78)
[2024-05-31 03:43] LABS: ALBUMIN 3.2 G/DL (3.2-5.2); ALKALINE PHOSPHATASE 134 U/L (40-129); ALT/SGPT 35 U/L (7.0-40); AST/SGOT 19 U/L (<34); BILIRUBIN,DIRECT 0.2 MG/DL (<0.4); BILIRUBIN,TOTAL 0.5 MG/DL (0.3-1.2); BLOOD UREA NITROGEN 17 MG/DL (9-23); CALCIUM LEVEL 8.3 MG/DL (8.3-10.6); CARBON DIOXIDE LEVEL 24 MMOL/L (20-31); CHLORIDE LEVEL 111 MMOL/L (98-107); CREATININE FOR GFR 0.86 MG/DL (0.70-1.30); GLOMERULAR FILTRATION RATE > 60.0 (>42); GLUCOSE, FASTING 130 MG/DL (74-106); POTASSIUM SERUM 4.1 MMOL/L (3.5-5.1); SODIUM LEVEL 145 MMOL/L (136-145); TOTAL PROTEIN 6.2 G/DL (5.7-8.2)
[2024-05-31 06:34] LABS: AMPHETAMINES LEVEL URINE NEGATIVE (NEGATIVE); BARBITURATES URINE NEGATIVE (NEGATIVE); BENZODIAZEPINES URINE NEGATIVE (NEGATIVE); CANNABINOIDS URINE NEGATIVE (NEGATIVE); COCAINE METABOLITE URINE NEGATIVE (NEGATIVE); METHADONE URINE NEGATIVE (NEGATIVE); OPIATES URINE NEGATIVE (NEGATIVE); PHENCYCLIDINE URINE NEGATIVE (NEGATIVE)
== END 2024-05-31 12:35 | disposition home or self-care (01) ==
LOC: M ED 02:25
DX: F20.9 Schizophrenia, unspecified (principal); I10 Essential (primary) hypertension; J44.9 Chronic obstructive pulmonary disease, unspecified; N40.0 Benign prostatic hyperplasia without lower urinary tract symptoms; Z88.8 Allergy status to other drugs, medicaments and biological substances; Z79.51 Long term (current) use of inhaled steroids; Z79.1 Long term (current) use of non-steroidal anti-inflammatories (NSAID); Z79.899 Other long term (current) drug therapy

== ENCOUNTER 2024-06-22 19:33 | Emergency (ER) | payer MEDICARE ==
[~2024-06-22] VITALS: Ht 182.9 cm; Wt 118.2 kg
[2024-06-22 19:44] VITALS: BP 158/78; TEMP 97.6; O2SAT 97
[2024-06-22] MEDS ORDERED: MIRT-10 PO (20:38)
[2024-06-22] MEDS ORDERED: med rec comment (20:40)
[2024-06-22] MEDS ORDERED: HOME MED LIST COMPLETE! XX SCH (20:40)
== END 2024-06-22 23:34 | disposition home or self-care (01) ==
LOC: M ED 19:33
DX: F20.9 Schizophrenia, unspecified (principal); I25.2 Old myocardial infarction; I10 Essential (primary) hypertension; J44.9 Chronic obstructive pulmonary disease, unspecified; F32.A Depression, unspecified; Z88.8 Allergy status to other drugs, medicaments and biological substances; Z79.51 Long term (current) use of inhaled steroids; Z79.1 Long term (current) use of non-steroidal anti-inflammatories (NSAID); Z79.899 Other long term (current) drug therapy

== ENCOUNTER 2024-07-20 18:04 | Emergency (ER) | payer MEDICARE ==
[~2024-07-20] VITALS: Ht 185.4 cm; Wt 118.8 kg
[~2024-07-20 18:04] MED LIST changes: +MIRT-10 PO; +med rec comment
[2024-07-20 18:52] LABS: HEMATOCRIT 40.4 % (42.0-52.0); HEMOGLOBIN 13.5 g/dl (13.5-17.5); MEAN CORPUSCULAR HEMOGLOBIN 31.7 pg (27.0-33.0); MEAN CORPUSCULAR HGB CONC 33.4 g/dl (32.0-36.5); MEAN CORPUSCULAR VOLUME 94.8 fl (80.0-96.0); PLATELET COUNT, AUTOMATED 166 10^3/uL (150-450); RED BLOOD COUNT 4.26 10^6/uL (4.30-6.10); WHITE BLOOD COUNT 8.5 10^3/uL (4.0-10.0)
[2024-07-20 19:21] LABS: AMPHETAMINES LEVEL URINE NEGATIVE (NEGATIVE); BARBITURATES URINE NEGATIVE (NEGATIVE)
[2024-07-20 19:22] LABS: BENZODIAZEPINES URINE NEGATIVE (NEGATIVE); CANNABINOIDS URINE NEGATIVE (NEGATIVE); COCAINE METABOLITE URINE NEGATIVE (NEGATIVE); METHADONE URINE NEGATIVE (NEGATIVE); OPIATES URINE NEGATIVE (NEGATIVE); PHENCYCLIDINE URINE NEGATIVE (NEGATIVE)
[2024-07-20 19:23] LABS: ETHYL ALCOHOL (ETHANOL) < 0.003 % (0.000-0.010)
[2024-07-20 19:25] LABS: ALBUMIN 3.2 G/DL (3.2-5.2); ALKALINE PHOSPHATASE 133 U/L (40-129); ALT/SGPT 32 U/L (7.0-40); AST/SGOT 17 U/L (<34); BILIRUBIN,DIRECT 0.2 MG/DL (<0.4); BILIRUBIN,TOTAL 0.6 MG/DL (0.3-1.2); BLOOD UREA NITROGEN 18 MG/DL (9-23); CALCIUM LEVEL 8.9 MG/DL (8.3-10.6); CARBON DIOXIDE LEVEL 23 MMOL/L (20-31); CHLORIDE LEVEL 111 MMOL/L (98-107); CREATININE FOR GFR 0.81 MG/DL (0.70-1.30); GLOMERULAR FILTRATION RATE > 60.0 (>42); GLUCOSE, FASTING 130 MG/DL (74-106); POTASSIUM SERUM 3.8 MMOL/L (3.5-5.1); SALICYLATE LEVEL < 3.0 MG/DL (<30); SODIUM LEVEL 145 MMOL/L (136-145); TOTAL PROTEIN 6.3 G/DL (5.7-8.2)
[2024-07-20 19:27] LABS: THYROID STIMULATING HORMONE 2.543 uIU/ML (0.55-4.78)
[2024-07-21] MEDS ORDERED: MED REC IN PROGRESS XX SCH (08:05)
[2024-07-21 11:38] VITALS: BP 145/65; TEMP 97.8; O2SAT 97
[2024-07-21] MEDS ORDERED: MIRT-88 PO (11:51)
[2024-07-21] MEDS ORDERED: RISP-106 PO (11:51)
[2024-07-21] MEDS ORDERED: ASPI81TA26 PO (11:51)
[2024-07-21] MEDS ORDERED: HOME MED LIST COMPLETE! XX SCH ×2 (11:55→12:00)
== END 2024-07-21 12:38 | disposition home or self-care (01) ==
LOC: M ED 18:04
DX: F25.9 Schizoaffective disorder, unspecified (principal); I45.10 Unspecified right bundle-branch block; R00.1 Bradycardia, unspecified; I10 Essential (primary) hypertension; F32.A Depression, unspecified; J44.9 Chronic obstructive pulmonary disease, unspecified; F41.9 Anxiety disorder, unspecified; M54.50 Low back pain, unspecified; Z88.6 Allergy status to analgesic agent; Z79.52 Long term (current) use of systemic steroids; Z79.82 Long term (current) use of aspirin; Z79.899 Other long term (current) drug therapy

== ENCOUNTER 2024-12-12 11:08 | Emergency (ER) | payer MEDICARE ==
[~2024-12-12 11:08] MED LIST changes: +ASPI81TA26 PO; -FLOM0.4C39 PO; +MIRT-88 PO; +PREG-35 PO; -PREG100CA PO; -PROZ20CA11 PO; +PROZ20CA12 PO; +RISP-106 PO; +SENN-225 PO; -SENO8.6T5 PO; +TAMS-18 PO
[2024-12-12 12:05] LABS: PLATELET COUNT, AUTOMATED 207 10^3/uL (150-450)
[2024-12-12 12:30] LABS: ETHYL ALCOHOL (ETHANOL) < 0.003 % (0.000-0.010)
[2024-12-12 12:31] LABS: ALT/SGPT 39 U/L (7.0-40); AST/SGOT 30 U/L (<34); CALCIUM LEVEL 9.2 MG/DL (8.3-10.6); CARBON DIOXIDE LEVEL 22 MMOL/L (20-31); CHLORIDE LEVEL 108 MMOL/L (98-107); CREATININE FOR GFR 0.80 MG/DL (0.70-1.30); GLOMERULAR FILTRATION RATE > 90.0 (>42); POTASSIUM SERUM 4.5 MMOL/L (3.5-5.1); SODIUM LEVEL 143 MMOL/L (136-145)
[2024-12-12 12:32] LABS: SALICYLATE LEVEL < 3.0 MG/DL (<30)
[2024-12-12 13:30] LABS: AMPHETAMINES LEVEL URINE NEGATIVE (NEGATIVE); BARBITURATES URINE NEGATIVE (NEGATIVE); BENZODIAZEPINES URINE NEGATIVE (NEGATIVE); COCAINE METABOLITE URINE NEGATIVE (NEGATIVE); METHADONE URINE NEGATIVE (NEGATIVE)
[2024-12-12 13:31] LABS: CANNABINOIDS URINE NEGATIVE (NEGATIVE); OPIATES URINE NEGATIVE (NEGATIVE); PHENCYCLIDINE URINE NEGATIVE (NEGATIVE)
[2024-12-12 16:20] VITALS: BP 149/86; TEMP 97.3; O2SAT 94
== END 2024-12-12 16:24 | disposition home or self-care (01) ==
LOC: M ED 11:08
DX: F25.9 Schizoaffective disorder, unspecified (principal); I10 Essential (primary) hypertension; E78.5 Hyperlipidemia, unspecified; F32.A Depression, unspecified; Z88.6 Allergy status to analgesic agent; Z79.1 Long term (current) use of non-steroidal anti-inflammatories (NSAID); Z79.51 Long term (current) use of inhaled steroids; Z79.899 Other long term (current) drug therapy